=== PATIENT | female | born 1955 | race Caucasian/White ===

== ENCOUNTER → 2017-08-29 05:00 | Outpatient (REF) | payer MEDICARE, SELFPAY ==
[2017-08-29 09:48] LABS: Hemoglobin A1c 8.3 % (4.2-6.3)
== END ==
LOC: OLS.WHLCAR 05:00
PROVIDERS: Visit Provider Internal Medicine
DX: E11.9 Type 2 diabetes mellitus without complications (principal); I10 Essential (primary) hypertension; E78.5 Hyperlipidemia, unspecified; E03.9 Hypothyroidism, unspecified
CPT/HCPCS: 36415; 83036

== ENCOUNTER 2017-10-04 00:34 | Inpatient (IN) | payer MEDICARE, SELFPAY ==
[2017-10-04] VITALS (55 sets, daily range): BP systolic 96–188; BP diastolic 40–77; PULSE 65–93; RESP 6–17; TEMP 34.7–39; O2SAT 91–100; BMI 44.2; BMI 43.1
[2017-10-04] MEDS: Dextrose 50%-Water 25 GM/50 ML DISP.SYRIN IV (00:38)
[2017-10-04 00:45] LABS: Bedside Glucose 53 mg/dL (70-110)
--- NOTE | 2017-10-04 00:45 | CT_ITS ---
STUDY: CT BRAIN WITHOUT CONTRAST REASON FOR EXAM: Female, 62 years old. Unresponsive. Hypotension. RADIATION DOSAGE (If Supplied By Facility): CTDIvol = ( 44.99 ) mGy, DLP = ( 796.11 ) mGycm TECHNIQUE: Transaxial CT imaging of the brain was performed without administration of intravenous contrast material. Individualized dose optimization techniques were used for this CT. COMPARISON: 09/03/2017. FINDINGS: Normal soft tissue structures. Normal calvarium. There is mild cerebral atrophy with widening of the extra-axial spaces and ventricular dilatation. Communicating hydrocephalus is less likely. There are areas of decreased attenuation within the white matter tracts of the supratentorial brain, consistent with microvascular disease changes. Normal basal ganglia and thalami. Normal brainstem. There is mild cerebellar atrophy. There is no intracranial hemorrhage. There are no findings of an acute ischemic infarction. Normal visualized paranasal sinuses. CT/Brain/Head without Contrast IMPRESSION: Chronic involutional changes of the brain. No acute intracranial process. Electronically Signed: Erick Chacon MD at 1:58 EST Tel , Service support ,
--- NOTE | 2017-10-04 00:45 | RAD_ITS ---
STUDY: X-RAY CHEST REASON FOR EXAM: Female, 62 years old. Status post intubation. Patient unresponsive. TECHNIQUE: Single AP portable view of the chest. COMPARISON: 09/03/2017. FINDINGS: There is an endotracheal tube with its tip approximately 4 cm proximal to the rosa. There is a nasogastric tube with distal dilatation of the stomach. There is patchy infiltrate in the left lower lobe but improved since the previous exam. There may be small left pleural effusion. There is mild cardiac enlargement. There is widening of the mediastinum probably exaggerated by patient's positioning. Normal visualized pulmonary arteries. There is atherosclerotic calcification of the aortic arch with tortuosity. The bony structures are unchanged. There is no demonstrated abnormality of the visualized soft tissue structures of the upper abdomen. RAD/Chest 1 View (Portable) IMPRESSION: Status post intubation and nasogastric tube placement. Mild infiltrate in the left lower lung. Electronically Signed: Erick Chacon MD at 1:46 EST Tel , Service support ,
--- NOTE | 2017-10-04 00:48 | EKG12_ITS ---
Test Reason : UNRESPONSIVE Blood Pressure : / mmHG Vent. Rate : 078 BPM Atrial Rate : 078 BPM P-R Int : 150 ms QRS Dur : 072 ms QT Int : 388 ms P-R-T Axes : 055 001 063 degrees QTc Int : 442 ms Normal sinus rhythm Septal infarct , age undetermined Abnormal ECG Confirmed by MEAGAN SANCHEZ, SALLIE ([id number]), newspaper managing editor SILVESTRE PAYNE ([id number]) on 10/06/2017 1:55:29 PM Referred By: ROGERS Confirmed By:SALLIE RHODES MD
--- NOTE | 2017-10-04 00:48 | ED.RN ---
BROTHER WHO IS GUARDIAN [employer]ARON CALLED, MADE AWARE OF PT NOT RESPONDING AT THIS TIME. DR. MCCLOUD GIVEN PHONE FOR DISCUSSION
[2017-10-04 00:59] LABS: Absolute Lymphocyte Count 0.86 X10^3/ul (0.83-4.51); Absolute Neutrophil Count 11.9 X10^3/uL (2.0-7.7); Basophil# 0.03 X10^3/uL; Basophil% 0.2 % (0-1); Eosinophil# 0.01 X10^3/uL; Eosinophils% 0.1 % (0-5); Hemoglobin 9.3 g/dl (12.0-15.0); Lymphocyte # 0.86 X10^3/ul (4.0); Lymphocyte % 6.4 % (19-41); Mean Corp Hgb Conc 28.2 g/gl (32-36); Mean Corpuscular Hgb 25.5 pg (27.0-32.0); Mean Corpuscular Volume 90.4 fL (81-99); Mean Platelet Vol. 10.3 fl (6.2-12.0); Monocyte# 0.33 X10^3/uL; Monocyte% 2.5 % (0-10); Neutrophil # 11.94 X10^3/uL (2.7-7.7); Neutrophil % 89.2 % (47-70); POSITIVE COUNT NO; POSITIVE DIFFERENTIAL NO; POSITIVE MORPHOLOGY NO; Platelet Count 263 K/mm3 (150-450); RBC Distribution Width CV 18.9 % (11.6-14.6); RBC Distribution Width SD 60.6 fl (35.1-43.9); Red Blood Count 3.65 M/mm3 (4.2-5.4); White Blood Count 13.4 K/mm3 (4.4-11.0)
[2017-10-04] MEDS: Dext 5%-0.45% NS 1,000 ML 100 ML IV (00:59)
[2017-10-04 01:01] LABS: International Normalized Ratio 1.4
[2017-10-04] MEDS: Etomidate 20 MG/10 ML Vial IV (01:11)
--- NOTE | 2017-10-04 01:14 | ED.VISSUMM ---
- ER Visit Summary Date of Service: 10/04/17 Chief Complaint: [Unresponsive] History of Present Illness: The patient is a 62 F [who presents the emergency department unresponsive. She is at the group home and was found to be unresponsive and hypoglycemic at 1130. She was last seen responsive at 11 PM. She was given glucagon. Her blood sugar was 73 per EMS. She had no improvement of her mental status. Per history sheet from calling the group home she has been lethargic and nauseated all day. She was complaining of nausea at 6 PM. I spoke with her brother who is her power of attorney lawyer and states that she was intubated 2 weeks ago for pneumonia. She is DNR CCA he would like for her to be intubated to see if she has improvement.] Physical Examination: [] Blood pressure 122/40 heart rate 79 respiration 600% on nonrebreather temperature 96.0 Unresponsive Pupils 3 mm and minimally reactive equal Moist mucous membranes no facial asymmetry Regular rate and rhythm no murmurs Diminished breath sounds diffusely shallow respirations Abdomen soft and does not appear to be tender no bruising No peripheral edema Delayed cap refill in the feet and hands 1+ radial pulses symmetrically Patient is unresponsive GCS is 4 Test Results: [] Emergency Department Course and Treatment: [EKG was obtained and was sinus at 78 with Q waves in the anterior leads is unchanged from previous on September 02, 2017. Patient was given an amp of D50 and blood sugar did improve to 177. Patient's mental status did not improve. At that time the decision was made to intubate for airway protection. Patient was intubated with 20 mg of etomidate for sedation. 4.0 Ced blade was used 7.0 ET tube was placed without difficulty on the first attempt. Placement was confirmed with bilateral breath sounds color change condensation in the tube and x-ray was ordered. Labs show a leukocytosis at 13.4 a lactic acid of 4.4 and a left lower lobe infiltrate on chest x-ray. Patient was treated for septic shock with fluids cefepime and vancomycin. She did start to wake up after being ventilated. She was sedated with fentanyl. Patient had hyperkalemia without EKG change. She was given Kayexalate through the OG. CT of the head showed no acute process. I spoke with Dr. Coelho as well as Dr. García 3 the patient will be admitted to the ICU.] Treatment Plan: [] Disposition: [Admit] Impression: [1. Hypercapnic respiratory failure 2. Septic shock 3. Hypoglycemia 4. Hyperkalemia] This note was generated with [employer] dictation software. It may contain incorrect words, spelling, and punctuation that were not noted in review of the chart prior to signing ED Disposition - Plan for ED Patient: Chief Complaint: Unresponsive Referrals: Xi Headley MD [Primary Care Provider] -
[2017-10-04 01:17] LABS: ALB/GLOB Ratio 0.7 RATIO (0.9-2.4); AST(SGOT) 12 U/L (15-37); Alanine Aminotransfer ALT/SGPT 28 U/L (13-56); Albumin, Serum 3.3 g/dL (3.2-5.0); Alkaline Phosphatase 85 U/L (45-117); Anion Gap 4 (5-15); BUN 52 mg/dL (7-18); BUN/Creat Ratio 36.4 RATIO (10-20); Calcium,Total 9.2 mg/dL (8.5-10.1); Chloride 95 mmol/L (98-107); Creatinine, Serum 1.43 mg/dL (0.55-1.02); EST Glomerular Filtration Rate 39 mL/min (>60); Est Glom Filt Rate - Afr Amer 48 mL/min (>60); Estimated Creatinine Clearance 33.31 ml/min; Globulin 4.7 g/dL (2.2-4.2); Glucose 45 mg/dL (74-106); Potassium 5.9 mmol/L (3.5-5.1); Sodium Level 135 mmol/L (136-145)
--- NOTE | 2017-10-04 01:19 | ED.DCSUM_ITS ---
- ER Visit Summary Date of Service: 10/04/17 Chief Complaint: [Unresponsive] History of Present Illness: The patient is a 62 F [who presents the emergency department unresponsive. She is at the [facility] and was found to be unresponsive and hypoglycemic at 1130. She was last seen responsive at 11 PM. She was given glucagon. Her blood sugar was 73 per EMS. She had no improvement of her mental status. Per history sheet from calling the [facility] she has been lethargic and nauseated all day. She was complaining of nausea at 6 PM. I spoke with her brother who is her power of senior trial attorney and states that she was intubated 2 weeks ago for pneumonia. She is DNR CCA he would like for her to be intubated to see if she has improvement.] Physical Examination: [] Blood pressure 122/40 heart rate 79 respiration 600% on nonrebreather temperature 96.0 Unresponsive Pupils 3 mm and minimally reactive equal Moist mucous membranes no facial asymmetry Regular rate and rhythm no murmurs Diminished breath sounds diffusely shallow respirations Abdomen soft and does not appear to be tender no bruising No peripheral edema Delayed cap refill in the feet and hands 1+ radial pulses symmetrically Patient is unresponsive GCS is 4 Test Results: [] Emergency Department Course and Treatment: [EKG was obtained and was sinus at 78 with Q waves in the anterior leads is unchanged from previous on September 02, 2017. Patient was given an amp of D50 and blood sugar did improve to 177. Patient's mental status did not improve. At that time the decision was made to intubate for airway protection. Patient was intubated with 20 mg of etomidate for sedation. 4.0 Ced blade was used 7.0 ET tube was placed without difficulty on the first attempt. Placement was confirmed with bilateral breath sounds color change condensation in the tube and x-ray was ordered. Labs show a leukocytosis at 13.4 a lactic acid of 4.4 and a left lower lobe infiltrate on chest x-ray. Patient was treated for septic shock with fluids cefepime and vancomycin. She did start to wake up after being ventilated. She was sedated with fentanyl. Patient had hyperkalemia without EKG change. She was given Kayexalate through the OG. CT of the head showed no acute process. I spoke with Dr. Coelho as well as Dr. García 3 the patient will be admitted to the ICU.] Treatment Plan: [] Disposition: [Admit] Impression: [1. Hypercapnic respiratory failure 2. Septic shock 3. Hypoglycemia 4. Hyperkalemia] This note was generated with [employer] dictation software. It may contain incorrect words, spelling, and punctuation that were not noted in review of the chart prior to signing ED Disposition - Plan for ED Patient: Chief Complaint: Unresponsive Referrals: Xi Headley MD [Primary Care Provider] -
[2017-10-04 01:20] LABS: Lactic Acid 4.4 mmol/L (0.4-2.0)
--- NOTE | 2017-10-04 01:20 | ED.RN ---
LAB CALLS WITH CRITICAL RESULT, LACTIC ACID 4.4, DR. MCCLOUD MADE AWARE.
[2017-10-04 01:22] LABS: Bedside Glucose 177 mg/dL (70-110)
[2017-10-04] MEDS: LORazepam 2 MG/ML Syringe 1 MG IV ×2 (01:38→02:24)
--- NOTE | 2017-10-04 01:42 | RAD_ITS ---
STUDY: X-RAY - ABDOMEN/PELVIS REASON FOR EXAM: Female, 62 years old. Status post advancement of orogastric tube. TECHNIQUE: Single AP view of the abdomen / pelvis. COMPARISON: Chest x-ray of 10/04/2017. FINDINGS: The orogastric tube's tip is now in the region of the stomach. The right side of the abdomen and the pelvic region are not included on this examination. RAD/Abdomen Single View (Portable) IMPRESSION: Orogastric tube with the tip in the region of the stomach. Electronically Signed: Erick Chacon MD at 2:07 EST Tel , Service support ,
[2017-10-04] MEDS: MethylPREDNISolone 125 MG/2 ML Vial IV (01:46)
[2017-10-04] MEDS: Ipratropium/Albuterol Sulfate 3 ML AMPUL.NEB INHALATION ×6 (01:49→23:14)
[2017-10-04] MEDS: Albuterol 2.5 MG/3 ML VIAL.NEB. INHALATION (01:49)
[2017-10-04] MEDS: Sodium Polystyrene Sulfonate 15 GM/60 ML UDC NG (01:55)
[2017-10-04] MEDS: 0.9% Normal Saline 1,000 ML 999 ML IV ×3 (01:56→03:33)
[2017-10-04 02:31] LABS: Bedside Glucose 116 mg/dL (70-110)
--- NOTE | 2017-10-04 03:04 | PCM.HP.STD ---
Problem List (1) Metabolic encephalopathy Status: Acute (2) Hypothermia Status: Acute (3) Severe sepsis Status: Acute (4) Gram-negative pneumonia Status: Acute (5) Mental retardation Status: Chronic (6) Morbid obesity Status: Chronic (7) Hypertension Status: Chronic (8) Type 2 diabetes mellitus without complications Status: Chronic (9) Leg edema, right Status: Acute (10) Depressive disorder Status: Chronic (11) Acute respiratory failure with hypercapnia Status: Acute (12) Hypoglycemia Status: Acute History of Present Illness Date of Admission: 10/04/17 Chief Complaint: found down The patient is a 62 year old F found unresponsive at [place]. Brought to ED and was hypothermic at 34.7C. Remained unresponsive and was intubated. Slightly woke up, but was sedated afterwards w fentanyl. Had a CXR concerning for LLL infiltrate and rec'd cefepime and vanc. Additionally, lactate was 4.4, and she received IVF. Pt had a similiar presentation where she was intubated and had a sputum cx positive for proteus and MSSA. Pt was hypoglycemic w MBS of 45. Rec'd D5 w/o improvement of her mentation and was subsequently intubated.[] Past Medical History Past Medical History (Chronic Problems): Chronic Problems Mental retardation (Chronic) Paresthesia (Chronic) Hx of shortness of breath (Chronic) Morbid obesity (Chronic) Hypertension (Chronic) Type 2 diabetes mellitus without complications (Chronic) Insomnia (Chronic) Depressive disorder (Chronic) Allergies naproxen Allergy (Verified 10/04/17 00:46) Rash Penicillins Allergy (Verified 10/04/17 00:46) Rash Home Medications: Ambulatory Orders Medication Instructions Recorded Acetaminophen 2 tab PO DINNER 10/04/17 Albuterol Aerosols [Ventolin 2.5 mg INHALATION Q4H PRN PRN 10/04/17 Aerosols] Apixaban [Eliquis] 5 mg PO BID 10/04/17 Atorvastatin Calcium 40 mg PO QHS 10/04/17 Carvedilol 12.5 mg PO BID 10/04/17 Clonidine HCl 0.1 mg PO BID 10/04/17 Fluticasone Propionate [Flovent 50 mcg IH DAILY 10/04/17 Diskus] Guaifenesin 10 ml PO Q6H PRN 10/04/17 Hydrochlorothiazide [Hctz] 25 mg PO DAILY 10/04/17 Insulin Aspart Protam & Aspart 26 unit SQ BREAKFAST 10/04/17 [Novolog Mix 70-30 Vial] Insulin Aspart Protam & Aspart 36 unit SQ DINNER 10/04/17 [Novolog Mix 70-30 Vial] Insulin Aspart [Novolog Flexpen See Protocol SC DINNER 10/04/17 ([facility])] Levothyroxine [Synthroid] 137 mcg PO DAILY 10/04/17 Loperamide [Imodium] 2 mg PO PRN PRN 10/04/17 Magnesium Oxide 400 mg PO BID 10/04/17 Melatonin 3 mg PO QHS 10/04/17 Metformin HCl [Glucophage] 1,000 mg PO BIDCM 10/04/17 Omeprazole 20 mg PO DAILY 10/04/17 Polyethylene Glycol 3350 [Miralax] 17 gm PO DAILY 10/04/17 Polyvinyl Alcohol [Artificial 1 drop OP TID PRN 10/04/17 Tears] Risperidone 2 mg PO BID 10/04/17 Sodium Chloride [Saline Mist] 2 spray NASAL TID 10/04/17 Spironolactone 25 mg PO DAILY 10/04/17 Tramadol HCl [Ultram] 50 mg PO DAILY 10/04/17 Venlafaxine HCl [Effexor] 75 mg PO BID 10/04/17 Surgical History: total knee arthroplasty - Left Psychiatric History: Depression, Schizophrenia - Paranoid. HELIARC WELDER History: No pertinent HELIARC WELDER history Smoking Status: Unknown if ever smoked - *Family History Maternal History Items: Unknown - unable to get family history as pt intubated and sedated Review of Systems Unable to obtain accurate/complete ROS d/t: unable to obtain as pt intubated and sedated VTE Information - Inpt Only VTE Present on Admission: Yes Patient Problems: Active and Suspected Problems Metabolic encephalopathy (Acute) Hypothermia (Acute) Severe sepsis (Acute) Gram-negative pneumonia (Acute) Acute respiratory failure with hypercapnia (Acute) Hypoglycemia (Acute) - Physical Exam General: - - intubated and sedated HEENT: Atraumatic, Normocephalic, - - ETT and OG in place Oral: Moist Mucosa, No Gingival or Mucosal Lesions/ Ulcerations Neck: No Nodes, Thyroid Normal Size and Texture Lungs: Clear to auscultation, Diminished Cardiovascular: Regular rate, Regular Rhythm, Normal S1, Normal S2 Abdomen: Bowel Sounds Present, Soft, Non Tender, Non-Distended, Obese Extremities: No clubbing, No Calf Tenderness Skin: No rashes, No breakdown Musculoskeletal: No Tenderness to Palpation of Joints or Extremities, No Muscle Wasting Neurological: Muscle tone normal, - - no clonus. Psych/Mental Status: - - sedated Vital Signs Temp Pulse Resp BP Pulse Ox 34.9 C L 65 16 96/57 L 100 10/04/17 02:52 10/04/17 02:52 10/04/17 02:52 10/04/17 02:52 10/04/17 02:52 Oxygen Flow Rate 15 Oxygen Delivery Method Mechanical Ventilator Weight: 113.3 kg Body Mass Index (BMI) 44.2 Finger Stick Blood Glucose 177 Microbiology Past 72 Hours 10/04/17 01:00 Influenza Types A,B Direct FA (CARLITA) - Final Mucosa - Nose Laboratory Tests Past 24 Hrs 10/04/17 10/04/17 10/04/17 00:40 00:40 00:40 WBC 13.4 H RBC 3.65 L Hgb 9.3 L Hct 33.0 L MCV 90.4 MCH 25.5 L MCHC 28.2 L RDW 18.9 H RDW Differential 60.6 H Plt Count 263 MPV 10.3 Immature Gran % (Auto) 1.600 H Neut % (Auto) 89.2 H Lymph % (Auto) 6.4 L [place] % (Auto) 2.5 Eos % (Auto) 0.1 Baso % (Auto) 0.2 Absolute Neuts (auto) 11.9 H Absolute Lymphs (auto) 0.86 Total Counted Not Reportable PT 17.0 H INR 1.4 Sodium 135 L Potassium 5.9 H Chloride 95 L Carbon Dioxide 36.0 H Anion Gap 4 L BUN 52 H Creatinine 1.43 H Estim Creat Clear Calc 33.31 Est GFR (MDRD) Af Amer 48 L Est GFR (MDRD) Non-Af 39 L BUN/Creatinine Ratio 36.4 H Glucose 45 L Lactic Acid Calcium 9.2 Total Bilirubin 0.20 AST 12 L ALT 28 Alkaline Phosphatase 85 Troponin I 0.17 H Total Protein 8.0 Albumin 3.3 Globulin 4.7 H Albumin/Globulin Ratio 0.7 L 10/04/17 00:40 WBC RBC Hgb Hct MCV MCH MCHC RDW RDW Differential Plt Count MPV Immature Gran % (Auto) Neut % (Auto) Lymph % (Auto) [place] % (Auto) Eos % (Auto) Baso % (Auto) Absolute Neuts (auto) Absolute Lymphs (auto) Total Counted PT INR Sodium Potassium Chloride Carbon Dioxide Anion Gap BUN Creatinine Estim Creat Clear Calc Est GFR (MDRD) Af Amer Est GFR (MDRD) Non-Af BUN/Creatinine Ratio Glucose Lactic Acid 4.4 H* Calcium Total Bilirubin AST ALT Alkaline Phosphatase Troponin I Total Protein Albumin Globulin Albumin/Globulin Ratio POC Glucose 10/04/17 10/04/17 10/04/17 02:19 00:58 00:38 POC Glucose 116 H 177 H 53 L Clinical Impression(s) from Imaging Studies Brain CT 10/04/17 00:45 IMPRESSION: Chronic involutional changes of the brain. No acute intracranial process. Electronically Signed: Erick Chacon MD at 1:58 EST Tel , Service support , Chest X-Ray 10/04/17 00:45 IMPRESSION: Status post intubation and nasogastric tube placement. Mild infiltrate in the left lower lung. Electronically Signed: Erick Chacon MD at 1:46 EST Tel , Service support , ADDENDUM: 10/04/17 0216 KUB X-Ray 10/04/17 01:42 IMPRESSION: Orogastric tube with the tip in the region of the stomach. Electronically Signed: Erick Chacon MD at 2:07 EST Tel , Service support , Assessment/Plan Active and Suspected Problems Metabolic encephalopathy (Acute) Hypothermia (Acute) Severe sepsis (Acute) Gram-negative pneumonia (Acute) Acute respiratory failure with hypercapnia (Acute) Hypoglycemia (Acute) 1. severe sepsis presumably d/t pneumonia. continue w IVF follow up lactate 2. Suspected Gram negative pneumonia jw- +cipro + vanc follow up cultures pulm toilet 3. metabolic encephalopathy no abg done, but CO2 high on BMP presumably CO2 narcosis was an etiology and hypoglycemia also contributing could be the severe sepsis on top her MRDD 4 Lactic acidosis severe sepsis v resp failure monitor 5. DM2 SSI for now hold scheduled insulin for now given the hypoglycemia 6. VTE cont elquis 7. Code status from detention: [id number] 8. Hypoglycemia: hold scheduled insulin and metformin. 9. Acute hypercapnic resp failure intubated on vent CCM c/s Code Visit Inpatient E&M: 29527 Init Hosp L3
--- NOTE | 2017-10-04 03:18 | HP.PCM_ITS ---
Problem List (1) Metabolic encephalopathy Status: Acute (2) Hypothermia Status: Acute (3) Severe sepsis Status: Acute (4) Gram-negative pneumonia Status: Acute (5) Mental retardation Status: Chronic (6) Morbid obesity Status: Chronic (7) Hypertension Status: Chronic (8) Type 2 diabetes mellitus without complications Status: Chronic (9) Leg edema, right Status: Acute (10) Depressive disorder Status: Chronic (11) Acute respiratory failure with hypercapnia Status: Acute (12) Hypoglycemia Status: Acute History of Present Illness Date of Admission: 10/04/17 Chief Complaint: found down The patient is a 62 year old F found unresponsive at [place]. Brought to ED and was hypothermic at 34.7C. Remained unresponsive and was intubated. Slightly woke up , but was sedated afterwards w fentanyl. Had a CXR concerning for LLL infiltrate and rec'd cefepime and vanc. Additionally, lactate was 4.4, and she received IVF. Pt had a similiar presentation where she was intubated and had a sputum cx positive for proteus and MSSA. Pt was hypoglycemic w MBS of 45. Rec'd D5 w/o improvement of her mentation and was subsequently intubated.[] Past Medical History Past Medical History (Chronic Problems): Chronic Problems Mental retardation (Chronic) Paresthesia (Chronic) Hx of shortness of breath (Chronic) Morbid obesity (Chronic) Hypertension (Chronic) Type 2 diabetes mellitus without complications (Chronic) Insomnia (Chronic) Depressive disorder (Chronic) Allergies naproxen Allergy (Verified 10/04/17 00:46) Rash Penicillins Allergy (Verified 10/04/17 00:46) Rash Home Medications: Ambulatory Orders Medication Instructions Recorded Acetaminophen 2 tab PO DINNER 10/04/17 Albuterol Aerosols [Ventolin 2.5 mg INHALATION Q4H PRN PRN 10/04/17 Aerosols] Apixaban [Eliquis] 5 mg PO BID 10/04/17 Atorvastatin Calcium 40 mg PO QHS 10/04/17 Carvedilol 12.5 mg PO BID 10/04/17 Clonidine HCl 0.1 mg PO BID 10/04/17 Fluticasone Propionate [Flovent 50 mcg IH DAILY 10/04/17 Diskus] Guaifenesin 10 ml PO Q6H PRN 10/04/17 Hydrochlorothiazide [Hctz] 25 mg PO DAILY 10/04/17 Insulin Aspart Protam & Aspart 26 unit SQ BREAKFAST 10/04/17 [Novolog Mix 70-30 Vial] Insulin Aspart Protam & Aspart 36 unit SQ DINNER 10/04/17 [Novolog Mix 70-30 Vial] Insulin Aspart [Novolog Flexpen See Protocol SC DINNER 10/04/17 ([facility])] Levothyroxine [Synthroid] 137 mcg PO DAILY 10/04/17 Loperamide [Imodium] 2 mg PO PRN PRN 10/04/17 Magnesium Oxide 400 mg PO BID 10/04/17 Melatonin 3 mg PO QHS 10/04/17 Metformin HCl [Glucophage] 1,000 mg PO BIDCM 10/04/17 Omeprazole 20 mg PO DAILY 10/04/17 Polyethylene Glycol 3350 [Miralax] 17 gm PO DAILY 10/04/17 Polyvinyl Alcohol [Artificial 1 drop OP TID PRN 10/04/17 Tears] Risperidone 2 mg PO BID 10/04/17 Sodium Chloride [Saline Mist] 2 spray NASAL TID 10/04/17 Spironolactone 25 mg PO DAILY 10/04/17 Tramadol HCl [Ultram] 50 mg PO DAILY 10/04/17 Venlafaxine HCl [Effexor] 75 mg PO BID 10/04/17 Surgical History: total knee arthroplasty - Left Psychiatric History: Depression, Schizophrenia - Paranoid. 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 Smoking Status: Unknown if ever smoked - *Family History Maternal History Items: Unknown - unable to get family history as pt intubated and sedated Review of Systems Unable to obtain accurate/complete ROS d/t: unable to obtain as pt intubated and sedated VTE Information - Inpt Only VTE Present on Admission: Yes Patient Problems: Active and Suspected Problems Metabolic encephalopathy (Acute) Hypothermia (Acute) Severe sepsis (Acute) Gram-negative pneumonia (Acute) Acute respiratory failure with hypercapnia (Acute) Hypoglycemia (Acute) - Physical Exam General: - - intubated and sedated HEENT: Atraumatic, Normocephalic, - - ETT and OG in place Oral: Moist Mucosa, No Gingival or Mucosal Lesions/ Ulcerations Neck: No Nodes, Thyroid Normal Size and Texture Lungs: Clear to auscultation, Diminished Cardiovascular: Regular rate, Regular Rhythm, Normal S1, Normal S2 Abdomen: Bowel Sounds Present, Soft, Non Tender, Non-Distended, Obese Extremities: No clubbing, No Calf Tenderness Skin: No rashes, No breakdown Musculoskeletal: No Tenderness to Palpation of Joints or Extremities, No Muscle Wasting Neurological: Muscle tone normal, - - no clonus. Psych/Mental Status: - - sedated Vital Signs Temp Pulse Resp BP Pulse Ox 34.9 C L 65 16 96/57 L 100 10/04/17 02:52 10/04/17 02:52 10/04/17 02:52 10/04/17 02:52 10/04/17 02:52 Oxygen Flow Rate 15 Oxygen Delivery Method Mechanical Ventilator Weight: 113.3 kg Body Mass Index (BMI) 44.2 Finger Stick Blood Glucose 177 Microbiology Past 72 Hours 10/04/17 01:00 Influenza Types A,B Direct FA (CARLITA) - Final Mucosa - Nose Laboratory Tests Past 24 Hrs 10/04/17 10/04/17 10/04/17 00:40 00:40 00:40 WBC 13.4 H RBC 3.65 L Hgb 9.3 L Hct 33.0 L MCV 90.4 MCH 25.5 L MCHC 28.2 L RDW 18.9 H RDW Differential 60.6 H Plt Count 263 MPV 10.3 Immature Gran % (Auto) 1.600 H Neut % (Auto) 89.2 H Lymph % (Auto) 6.4 L [place] % (Auto) 2.5 Eos % (Auto) 0.1 Baso % (Auto) 0.2 Absolute Neuts (auto) 11.9 H Absolute Lymphs (auto) 0.86 Total Counted Not Reportable PT 17.0 H INR 1.4 Sodium 135 L Potassium 5.9 H Chloride 95 L Carbon Dioxide 36.0 H Anion Gap 4 L BUN 52 H Creatinine 1.43 H Estim Creat Clear Calc 33.31 Est GFR (MDRD) Af Amer 48 L Est GFR (MDRD) Non-Af 39 L BUN/Creatinine Ratio 36.4 H Glucose 45 L Lactic Acid Calcium 9.2 Total Bilirubin 0.20 AST 12 L ALT 28 Alkaline Phosphatase 85 Troponin I 0.17 H Total Protein 8.0 Albumin 3.3 Globulin 4.7 H Albumin/Globulin Ratio 0.7 L 10/04/17 00:40 WBC RBC Hgb Hct MCV MCH MCHC RDW RDW Differential Plt Count MPV Immature Gran % (Auto) Neut % (Auto) Lymph % (Auto) [place] % (Auto) Eos % (Auto) Baso % (Auto) Absolute Neuts (auto) Absolute Lymphs (auto) Total Counted PT INR Sodium Potassium Chloride Carbon Dioxide Anion Gap BUN Creatinine Estim Creat Clear Calc Est GFR (MDRD) Af Amer Est GFR (MDRD) Non-Af BUN/Creatinine Ratio Glucose Lactic Acid 4.4 H* Calcium Total Bilirubin AST ALT Alkaline Phosphatase Troponin I Total Protein Albumin Globulin Albumin/Globulin Ratio POC Glucose 10/04/17 10/04/17 10/04/17 02:19 00:58 00:38 POC Glucose 116 H 177 H 53 L Clinical Impression(s) from Imaging Studies Brain CT 10/04/17 00:45 IMPRESSION: Chronic involutional changes of the brain. No acute intracranial process. Electronically Signed: Erick Chacon MD at 1:58 EST Tel , Service support , Chest X-Ray 10/04/17 00:45 IMPRESSION: Status post intubation and nasogastric tube placement. Mild infiltrate in the left lower lung. Electronically Signed: Erick Chacon MD at 1:46 EST Tel , Service support , ADDENDUM: 10/04/17 0216 KUB X-Ray 10/04/17 01:42 IMPRESSION: Orogastric tube with the tip in the region of the stomach. Electronically Signed: Erick Chacon MD at 2:07 EST Tel , Service support , Assessment/Plan Active and Suspected Problems Metabolic encephalopathy (Acute) Hypothermia (Acute) Severe sepsis (Acute) Gram-negative pneumonia (Acute) Acute respiratory failure with hypercapnia (Acute) Hypoglycemia (Acute) 1. severe sepsis * presumably d/t pneumonia. * continue w IVF * follow up lactate 2. Suspected Gram negative pneumonia * jw- +cipro + vanc * follow up cultures * pulm toilet 3. metabolic encephalopathy * no abg done, but CO2 high on BMP * presumably CO2 narcosis was an etiology and hypoglycemia * also contributing could be the severe sepsis on top her MRDD 4 Lactic acidosis * severe sepsis v resp failure * monitor 5. DM2 * SSI for now * hold scheduled insulin for now given the hypoglycemia 6. VTE * cont elquis 7. Code status * from care home: DNRCCA 8. Hypoglycemia: * hold scheduled insulin and metformin. 9. Acute hypercapnic resp failure * intubated on vent * [facility] c/s Code Visit Inpatient E&M: 11280 Init Hosp L3
[2017-10-04 03:51] LABS: Bedside Glucose 123 mg/dL (70-110)
[2017-10-04] MEDS: 0.9% Normal Saline 1,000 ML 125 ML IV (04:36)
[2017-10-04 04:52] LABS: Reflex Lactate? Y
[2017-10-04 04:56] LABS: Bedside Glucose 108 mg/dL (70-110)
[2017-10-04 05:11] LABS: Base Excess 3 mmol/L (-2 to +2); Bicarbonate 29.1 mmol/L (22-26); Blood Gas Specimen Type ART; FI02 40; Mode A-C; O2 Delivery Device Vent; PEEP 5; PO2 80 mmHG (75-100); RR 14; SITE R Radial; SO2 94 % (95-99); Time Given 510; Total Carbon Dioxide 31 mmol/L; Vt 445; pCO2 57.5 mmHg (35-45); pH 7.31 (7.35-7.45)
[2017-10-04 05:43] LABS: Hemoglobin 8.3 g/dl (12.0-15.0); Mean Corp Hgb Conc 33.2 g/gl (32-36); Mean Corpuscular Hgb 30.3 pg (27.0-32.0); Mean Corpuscular Volume 91.2 fL (81-99); Mean Platelet Vol. 10.4 fl (6.2-12.0); Platelet Count 215 K/mm3 (150-450); Red Blood Count 2.74 M/mm3 (4.2-5.4); White Blood Count 9.2 K/mm3 (4.4-11.0)
[2017-10-04 05:44] LABS: Scan Indicated on CBC? Y/N NO
[2017-10-04 06:00] LABS: Lactic Acid 3.8 mmol/L (0.4-2.0)
[2017-10-04] MEDS: Ciprofloxacin 400 MG/200 ML BAG 200 MG IV (06:01)
[2017-10-04] MEDS: Levothyroxine 137 MCG Tablet PO (06:16)
[2017-10-04] MEDS: DiphenhydrAMINE 50 MG/ML Syringe IV (06:22)
[2017-10-04 06:50] LABS: Allen Test POS; Blood Gas Specimen Type ART; O2 Delivery Device Room Air; SITE R RADIAL
[2017-10-04 06:51] LABS: Time Given 113; pH 7.02 (7.35-7.45)
[2017-10-04 06:52] LABS: PO2 218 mmHG (75-100); pCO2 > 130.0 mmHg (35-45)
[2017-10-04 06:59] LABS: Anion Gap 12 (5-15); BUN 54 mg/dL (7-18); BUN/Creat Ratio 41.9 RATIO (10-20); Calcium,Total 8.6 mg/dL (8.5-10.1); Chloride 98 mmol/L (98-107); Creatinine, Serum 1.29 mg/dL (0.55-1.02); EST Glomerular Filtration Rate 44 mL/min (>60); Est Glom Filt Rate - Afr Amer 54 mL/min (>60); Glucose 105 mg/dL (74-106); Potassium 5.9 mmol/L (3.5-5.1); Sodium Level 135 mmol/L (136-145)
[2017-10-04 07:14] LABS: M R Staph aureus DNA By PCR Negative (Negative)
[2017-10-04 07:15] LABS: Probe Check PASS; Specimen Processing Control PASS
[2017-10-04] MEDS: CHLORHEXIDINE GLUC 2% CLOTH 1 EACH TOWELETTE TOPICAL (07:18)
--- NOTE | 2017-10-04 07:52 | PCM.CON.CC ---
Problem List (1) Metabolic encephalopathy Status: Acute (2) Hypothermia Status: Acute Qualifiers: Encounter type: initial encounter Qualified Code(s): T68.XXXA - Hypothermia, initial encounter (3) Severe sepsis Status: Acute (4) Gram-negative pneumonia Status: Acute (5) Mental retardation Status: Chronic (6) Acute respiratory failure with hypercapnia Status: Acute (7) Hypoglycemia Status: Acute (8) Paresthesia Status: Chronic (9) Hx of shortness of breath Status: Chronic (10) Morbid obesity Status: Chronic (11) Hypertension Status: Chronic (12) Type 2 diabetes mellitus without complications Status: Chronic (13) Right hip pain Status: Acute (14) Insomnia Status: Chronic (15) Inability to ambulate due to hip Status: Acute (16) Leg edema, right Status: Acute (17) Depressive disorder Status: Chronic Reason for Consult Date of Consultation: 10/04/17 Reason for Consultation: Respiratory failure History of Present Illness: The patient is a 62 year old F, with past medical history listed below and well-known to me from recent hospitalization, who presented to [facility] on 10/04/2017 after being found unresponsive and hypoglycemic at the [place] [facility] at approximately 11:30 PM. Was reportedly seen response of approximately 30 minutes before. Patient had been given glucagon by EMS and blood sugar improved to 73. Mental status continued to be depressed. Patient had reportedly been lethargic and nauseated all day. On arrival to the emergency room, patient was noted to be unresponsive with a GCS of 4. Patient was successfully extubated with a 7.0 endotracheal tube and initiated on cefepime with vancomycin. Patient was also noted to have hyperkalemia and did receive a dose of Kayexalate. No EKG changes were noted at that time. Patient was transferred to the intensive care unit for further monitoring. While in the intensive care unit, patient did have significant hypothermia. Patient has had a warming blanket placed with some improvement. Blood sugars have been appropriate to this point. Patient is not actively interacting despite lack of sedation. Patient does have fentanyl infusing. There was some concern over facial and tongue swelling, so patient was given Benadryl. No rashes have been noted. Patient does have a brother that is her power of attorney recruiter. He is not available to talk with at this time. Patient is not able to provide any review of systems are additional information at this time. Past Medical History Past Medical History (Chronic Problems): Chronic Problems Mental retardation (Chronic) Paresthesia (Chronic) Hx of shortness of breath (Chronic) Morbid obesity (Chronic) Hypertension (Chronic) Type 2 diabetes mellitus without complications (Chronic) Insomnia (Chronic) Depressive disorder (Chronic) Allergies naproxen Allergy (Verified 10/04/17 00:46) Rash Penicillins Allergy (Verified 10/04/17 00:46) Rash Home Medications: Ambulatory Orders Medication Instructions Recorded Acetaminophen 2 tab PO DINNER 10/04/17 Albuterol Aerosols [Ventolin 2.5 mg INHALATION Q4H PRN PRN 10/04/17 Aerosols] Apixaban [Eliquis] 5 mg PO BID 10/04/17 Atorvastatin Calcium 40 mg PO QHS 10/04/17 Carvedilol 12.5 mg PO BID 10/04/17 Clonidine HCl 0.1 mg PO BID 10/04/17 Fluticasone Propionate [Flovent 50 mcg IH DAILY 10/04/17 Diskus] Guaifenesin 10 ml PO Q6H PRN 10/04/17 Hydrochlorothiazide [Hctz] 25 mg PO DAILY 10/04/17 Insulin Aspart Protam & Aspart 26 unit SQ BREAKFAST 10/04/17 [Novolog Mix 70-30 Vial] Insulin Aspart Protam & Aspart 36 unit SQ DINNER 10/04/17 [Novolog Mix 70-30 Vial] Insulin Aspart [Novolog Flexpen See Protocol SC DINNER 10/04/17 ([facility])] Levothyroxine [Synthroid] 137 mcg PO DAILY 10/04/17 Loperamide [Imodium] 2 mg PO PRN PRN 10/04/17 Magnesium Oxide 400 mg PO BID 10/04/17 Melatonin 3 mg PO QHS 10/04/17 Metformin HCl [Glucophage] 1,000 mg PO BIDCM 10/04/17 Omeprazole 20 mg PO DAILY 10/04/17 Polyethylene Glycol 3350 [Miralax] 17 gm PO DAILY 10/04/17 Polyvinyl Alcohol [Artificial 1 drop OP TID PRN 10/04/17 Tears] Risperidone 2 mg PO BID 10/04/17 Sodium Chloride [Saline Mist] 2 spray NASAL TID 10/04/17 Spironolactone 25 mg PO DAILY 10/04/17 Tramadol HCl [Ultram] 50 mg PO DAILY 10/04/17 Venlafaxine HCl [Effexor] 75 mg PO BID 10/04/17 Surgical History: total knee arthroplasty - Left Psychiatric History: Depression, Schizophrenia - Paranoid. 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 Chest x-ray does show a left lower lobe infiltrate. Supportive devices are in appropriate position. - Physical Exam General: - - Intubated. RASS -3. Morbidly obese. Good vent synchrony noted. Endotracheal tube was noted to be folded earlier. Adjustments led to decrease in peak airway pressures. HEENT: Atraumatic, EOMI, Normocephalic, - - Lip smacking noted. Macroglossia appreciated. Oral: Moist Mucosa, No Gingival or Mucosal Lesions/ Ulcerations Neck: Supple, No Nodes, Trachea Midline, - - Be difficult to appreciate secondary to body habitus Lungs: No rhonchi, No rales, Diminished, Wheezes, - - Metric expansion. No dullness to percussion. Cardiovascular: Regular rate, Regular Rhythm, Normal S1, Normal S2, No murmurs, No rub noted, No Gallop Abdomen: Bowel Sounds Present, Soft, Non Tender, Non-Distended, Obese Extremities: No clubbing, No cyanosis, Edema - 2+ lower extremities Skin: No rashes, No breakdown Musculoskeletal: No Tenderness to Palpation of Joints or Extremities, No Muscle Wasting Lymphatic: No Cervical, Supraclavicular, or Inguinal Adenopathy Neurological: - - Positive gag and cough reflexes. Responds to stimulus. Psych/Mental Status: Flat Affect Vital Signs Temp Pulse Resp BP Pulse Ox 37.7 C H 76 16 149/67 H 97 10/04/17 07:00 10/04/17 07:06 10/04/17 07:00 10/04/17 07:00 10/04/17 07:00 Oxygen Delivery Method Mechanical Ventilator Weight: 110.5 kg Body Mass Index (BMI) 43.1 Intake and Output for Last 24 Hours 10/02/17 10/03/17 10/04/17 23:59 23:59 23:59 Intake Total 3519.7 / 3519.7 Output Total 250 / 250 Balance 3269.7 / 3269.7 Microbiology Past 72 Hours 10/04/17 04:45 Streptococcus pneumoniae Antigen (M - Final Urine Catheter - Catheter 10/04/17 04:45 Legionella Antigen - Final Urine Catheter - Catheter Laboratory Tests Past 24 Hrs 10/04/17 10/04/17 10/04/17 04:30 05:06 05:14 WBC 9.2 RBC 2.74 L Hgb 8.3 L Hct 25.0 L MCV 91.2 MCH 30.3 MCHC 33.2 RDW 19.0 H RDW Differential 59.0 H Plt Count 215 MPV 10.4 Specimen Type ART Sample Site R Radial pH 7.31 L Bicarbonate Actual 29.1 H POC Total CO2 31 Base Excess 3 H O2 Saturation 94 L O2 % 40 ABG pCO2 57.5 H ABG pO2 80 Jerry Test NA Respiration Rate 14 O2 Delivery Device Vent Minute Volume 6.00 Vent Mode A-C Tidal Volume 445 POC PEEP 5 Blood Gas Notified Whom [facility] Blood Gas Notified Time 510 Sodium Potassium Chloride Carbon Dioxide Anion Gap BUN Creatinine Estim Creat Clear Calc Est GFR (MDRD) Af Amer Est GFR (MDRD) Non-Af BUN/Creatinine Ratio Glucose Lactic Acid Calcium MRSA (PCR) Negative 10/04/17 10/04/17 05:14 05:14 WBC RBC Hgb Hct MCV MCH MCHC RDW RDW Differential Plt Count MPV Specimen Type Sample Site pH Bicarbonate Actual POC Total CO2 Base Excess O2 Saturation O2 % ABG pCO2 ABG pO2 Jerry Test Respiration Rate O2 Delivery Device Minute Volume Vent Mode Tidal Volume POC PEEP Blood Gas Notified Whom Blood Gas Notified Time Sodium 135 L Potassium 5.9 H Chloride 98 Carbon Dioxide 25.0 Anion Gap 12 BUN 54 H Creatinine 1.29 H Estim Creat Clear Calc 35.30 Est GFR (MDRD) Af Amer 54 L Est GFR (MDRD) Non-Af 44 L BUN/Creatinine Ratio 41.9 H Glucose 105 Lactic Acid 3.8 H Calcium 8.6 MRSA (PCR) POC Glucose 10/04/17 10/04/17 04:36 03:44 POC Glucose 108 123 H Clinical Impression(s) from Imaging Studies Brain CT 10/04/17 00:45 IMPRESSION: Chronic involutional changes of the brain. No acute intracranial process. Electronically Signed: Erick Chacon MD at 1:58 EST Tel , Service support , Chest X-Ray 10/04/17 00:45 IMPRESSION: Status post intubation and nasogastric tube placement. Mild infiltrate in the left lower lung. Electronically Signed: Erick Chacon MD at 1:46 EST Tel , Service support , ADDENDUM: 10/04/17 0216 KUB X-Ray 10/04/17 01:42 IMPRESSION: Orogastric tube with the tip in the region of the stomach. Electronically Signed: Erick Chacon MD at 2:07 EST Tel , Service support , Assessment/Plan Active and Suspected Problems Metabolic encephalopathy (Acute) Hypothermia (Acute) Severe sepsis (Acute) Gram-negative pneumonia (Acute) Acute respiratory failure with hypercapnia (Acute) Hypoglycemia (Acute) RECOMMENDATIONS: 1. Continue HCAP antibiotics pending culture and viral panel 2. Monitor blood sugars closely 3. Initiate tube feeds 4. Place PICC line 5. Re-dose Kayexalate this afternoon if no bowel movement 6. Continues breathing and awakening trials per protocol IMPRESSIONS: 1. Acute on chronic hypercarbic respiratory failure Patient recently with polymicrobial pneumonia and parainfluenza virus. Unclear if patient has influenza given reported nausea, vomiting and body aches. Patient currently has multiple cultures pending and a viral panel. Patient did grow staph aureus in the past, so would continue with vancomycin despite negative MRSA swab. Patient does have a left midlung infiltrate. Unclear if this is residual from previous pneumonia versus new infection. Patient does have significant lactic acidosis on presentation, but this may also be secondary to hypoglycemia. 2. Delirium with baseline dementia/metabolic encephalopathy Likely secondary to hypercarbia with additional metabolic/infectious derangements contributing. We will continue to support at this time. Continue with delirium protocol. Patient will need an ABG prior to extubation. Follow electrolytes on a daily basis 3. Acute kidney injury/hyperkalemia Likely prerenal in etiology. Patient can be initiated on tube feeds for volume repletion. Continue current medical management. Urine output is currently appropriate. No current indications for renal replacement therapy. 4. Elevated cardiac enzymes/demand ischemia Likely secondary to demand ischemia in the setting of respiratory failure and sepsis. Echocardiogram has shown diastolic dysfunction in the recent past, so will have to watch fluid status closely. Patient does have a history of hypertension. 5. Hypoglycemia Patient for iatrogenic etiology given baseline 70/30 dosing with new onset of nausea and vomiting. Patient has responded to current intervention. Will initiate tube feeds. Clinical suspicion that basal insulin will need to be initiated once sugars greater than 200. Continue to monitor closely. 6. Normocytic anemia No overt signs of blood loss. Monitor blood counts daily. Plan to transfuse if hemoglobin falls below 7 g/dL. 7. History of normal pressure hydrocephalus/severe depression/diabetes/hypertension/morbid obesity/history of DVT/hypothyroidism Complicates care, management, recovery and prognosis. Continue home medications as indicated. 8. Hypertensive urgency Unclear etiology. Patient did have elevated blood pressures during last hospitalization. Will allow to run slightly high in the initial 24 hours as septic shock may develop given patient's presenting hypothermia and new lung infiltrate TIME: 45 minutes critical care time spent addressing patient's acute on chronic respiratory failure, encephalopathy. hyperkalemia, hypoglycemia, review of all data and collaboration with care team (7 AM to 8:10 AM) Code Visit 9xxxx: [id number] Critical care first hour
--- NOTE | 2017-10-04 08:10 | CON.PCM_ITS ---
Problem List (1) Metabolic encephalopathy Status: Acute (2) Hypothermia Status: Acute Qualifiers: Encounter type: initial encounter Qualified Code(s): T68.XXXA - Hypothermia , initial encounter (3) Severe sepsis Status: Acute (4) Gram-negative pneumonia Status: Acute (5) Mental retardation Status: Chronic (6) Acute respiratory failure with hypercapnia Status: Acute (7) Hypoglycemia Status: Acute (8) Paresthesia Status: Chronic (9) Hx of shortness of breath Status: Chronic (10) Morbid obesity Status: Chronic (11) Hypertension Status: Chronic (12) Type 2 diabetes mellitus without complications Status: Chronic (13) Right hip pain Status: Acute (14) Insomnia Status: Chronic (15) Inability to ambulate due to hip Status: Acute (16) Leg edema, right Status: Acute (17) Depressive disorder Status: Chronic Reason for Consult Date of Consultation: 10/04/17 Reason for Consultation: Respiratory failure History of Present Illness: The patient is a 62 year old F, with past medical history listed below and well- known to me from recent hospitalization, who presented to [facility] on 10/04/2017 after being found unresponsive and hypoglycemic at the [facility] at approximately 11:30 PM. Was reportedly seen response of approximately 30 minutes before. Patient had been given glucagon by EMS and blood sugar improved to 73. Mental status continued to be depressed. Patient had reportedly been lethargic and nauseated all day. On arrival to the emergency room, patient was noted to be unresponsive with a GCS of 4. Patient was successfully extubated with a 7.0 endotracheal tube and initiated on cefepime with vancomycin. Patient was also noted to have hyperkalemia and did receive a dose of Kayexalate. No EKG changes were noted at that time. Patient was transferred to the intensive care unit for further monitoring. While in the intensive care unit, patient did have significant hypothermia. Patient has had a warming blanket placed with some improvement. Blood sugars have been appropriate to this point. Patient is not actively interacting despite lack of sedation. Patient does have fentanyl infusing. There was some concern over facial and tongue swelling, so patient was given Benadryl. No rashes have been noted. Patient does have a brother that is her power of finance attorney. He is not available to talk with at this time. Patient is not able to provide any review of systems are additional information at this time. Past Medical History Past Medical History (Chronic Problems): Chronic Problems Mental retardation (Chronic) Paresthesia (Chronic) Hx of shortness of breath (Chronic) Morbid obesity (Chronic) Hypertension (Chronic) Type 2 diabetes mellitus without complications (Chronic) Insomnia (Chronic) Depressive disorder (Chronic) Allergies naproxen Allergy (Verified 10/04/17 00:46) Rash Penicillins Allergy (Verified 10/04/17 00:46) Rash Home Medications: Ambulatory Orders Medication Instructions Recorded Acetaminophen 2 tab PO DINNER 10/04/17 Albuterol Aerosols [Ventolin 2.5 mg INHALATION Q4H PRN PRN 10/04/17 Aerosols] Apixaban [Eliquis] 5 mg PO BID 10/04/17 Atorvastatin Calcium 40 mg PO QHS 10/04/17 Carvedilol 12.5 mg PO BID 10/04/17 Clonidine HCl 0.1 mg PO BID 10/04/17 Fluticasone Propionate [Flovent 50 mcg IH DAILY 10/04/17 Diskus] Guaifenesin 10 ml PO Q6H PRN 10/04/17 Hydrochlorothiazide [Hctz] 25 mg PO DAILY 10/04/17 Insulin Aspart Protam & Aspart 26 unit SQ BREAKFAST 10/04/17 [Novolog Mix 70-30 Vial] Insulin Aspart Protam & Aspart 36 unit SQ DINNER 10/04/17 [Novolog Mix 70-30 Vial] Insulin Aspart [Novolog Flexpen See Protocol SC DINNER 10/04/17 ([facility])] Levothyroxine [Synthroid] 137 mcg PO DAILY 10/04/17 Loperamide [Imodium] 2 mg PO PRN PRN 10/04/17 Magnesium Oxide 400 mg PO BID 10/04/17 Melatonin 3 mg PO QHS 10/04/17 Metformin HCl [Glucophage] 1,000 mg PO BIDCM 10/04/17 Omeprazole 20 mg PO DAILY 10/04/17 Polyethylene Glycol 3350 [Miralax] 17 gm PO DAILY 10/04/17 Polyvinyl Alcohol [Artificial 1 drop OP TID PRN 10/04/17 Tears] Risperidone 2 mg PO BID 10/04/17 Sodium Chloride [Saline Mist] 2 spray NASAL TID 10/04/17 Spironolactone 25 mg PO DAILY 10/04/17 Tramadol HCl [Ultram] 50 mg PO DAILY 10/04/17 Venlafaxine HCl [Effexor] 75 mg PO BID 10/04/17 Surgical History: total knee arthroplasty - Left Psychiatric History: Depression, Schizophrenia - Paranoid. BIG DATA DEVELOPER History: No pertinent BIG DATA DEVELOPER history Smoking Status: Unknown if ever smoked - *Family History Maternal History Items: Unknown - unable to get family history as pt intubated and sedated Review of Systems Unable to obtain accurate/complete ROS d/t: See HPI Patient Problems: Active and Suspected Problems Metabolic encephalopathy (Acute) Hypothermia (Acute) Severe sepsis (Acute) Gram-negative pneumonia (Acute) Acute respiratory failure with hypercapnia (Acute) Hypoglycemia (Acute) Objective: All imaging was personally reviewed. Chest x-ray does show a left lower lobe infiltrate. Supportive devices are in appropriate position. - Physical Exam General: - - Intubated. RASS -3. Morbidly obese. Good vent synchrony noted. Endotracheal tube was noted to be folded earlier. Adjustments led to decrease in peak airway pressures. HEENT: Atraumatic, EOMI, Normocephalic, - - Lip smacking noted. Macroglossia appreciated. Oral: Moist Mucosa, No Gingival or Mucosal Lesions/ Ulcerations Neck: Supple, No Nodes, Trachea Midline, - - Be difficult to appreciate secondary to body habitus Lungs: No rhonchi, No rales, Diminished, Wheezes, - - Metric expansion. No dullness to percussion. Cardiovascular: Regular rate, Regular Rhythm, Normal S1, Normal S2, No murmurs, No rub noted, No Gallop Abdomen: Bowel Sounds Present, Soft, Non Tender, Non-Distended, Obese Extremities: No clubbing, No cyanosis, Edema - 2+ lower extremities Skin: No rashes, No breakdown Musculoskeletal: No Tenderness to Palpation of Joints or Extremities, No Muscle Wasting Lymphatic: No Cervical, Supraclavicular, or Inguinal Adenopathy Neurological: - - Positive gag and cough reflexes. Responds to stimulus. Psych/Mental Status: Flat Affect Vital Signs Temp Pulse Resp BP Pulse Ox 37.7 C H 76 16 149/67 H 97 10/04/17 07:00 10/04/17 07:06 10/04/17 07:00 10/04/17 07:00 10/04/17 07:00 Oxygen Delivery Method Mechanical Ventilator Weight: 110.5 kg Body Mass Index (BMI) 43.1 Intake and Output for Last 24 Hours 10/02/17 10/03/17 10/04/17 23:59 23:59 23:59 Intake Total 3519.7 / 3519.7 Output Total 250 / 250 Balance 3269.7 / 3269.7 Microbiology Past 72 Hours 10/04/17 04:45 Streptococcus pneumoniae Antigen (M - Final Urine Catheter - Catheter 10/04/17 04:45 Legionella Antigen - Final Urine Catheter - Catheter Laboratory Tests Past 24 Hrs 10/04/17 10/04/17 10/04/17 04:30 05:06 05:14 WBC 9.2 RBC 2.74 L Hgb 8.3 L Hct 25.0 L MCV 91.2 MCH 30.3 MCHC 33.2 RDW 19.0 H RDW Differential 59.0 H Plt Count 215 MPV 10.4 Specimen Type ART Sample Site R Radial pH 7.31 L Bicarbonate Actual 29.1 H POC Total CO2 31 Base Excess 3 H O2 Saturation 94 L O2 % 40 ABG pCO2 57.5 H ABG pO2 80 Jerry Test NA Respiration Rate 14 O2 Delivery Device Vent Minute Volume 6.00 Vent Mode A-C Tidal Volume 445 POC PEEP 5 Blood Gas Notified Whom [facility] Blood Gas Notified Time 510 Sodium Potassium Chloride Carbon Dioxide Anion Gap BUN Creatinine Estim Creat Clear Calc Est GFR (MDRD) Af Amer Est GFR (MDRD) Non-Af BUN/Creatinine Ratio Glucose Lactic Acid Calcium MRSA (PCR) Negative 10/04/17 10/04/17 05:14 05:14 WBC RBC Hgb Hct MCV MCH MCHC RDW RDW Differential Plt Count MPV Specimen Type Sample Site pH Bicarbonate Actual POC Total CO2 Base Excess O2 Saturation O2 % ABG pCO2 ABG pO2 Jerry Test Respiration Rate O2 Delivery Device Minute Volume Vent Mode Tidal Volume POC PEEP Blood Gas Notified Whom Blood Gas Notified Time Sodium 135 L Potassium 5.9 H Chloride 98 Carbon Dioxide 25.0 Anion Gap 12 BUN 54 H Creatinine 1.29 H Estim Creat Clear Calc 35.30 Est GFR (MDRD) Af Amer 54 L Est GFR (MDRD) Non-Af 44 L BUN/Creatinine Ratio 41.9 H Glucose 105 Lactic Acid 3.8 H Calcium 8.6 MRSA (PCR) POC Glucose 10/04/17 10/04/17 04:36 03:44 POC Glucose 108 123 H Clinical Impression(s) from Imaging Studies Brain CT 10/04/17 00:45 IMPRESSION: Chronic involutional changes of the brain. No acute intracranial process. Electronically Signed: Erick Chacon MD at 1:58 EST Tel , Service support , Chest X-Ray 10/04/17 00:45 IMPRESSION: Status post intubation and nasogastric tube placement. Mild infiltrate in the left lower lung. Electronically Signed: Erick Chacon MD at 1:46 EST Tel , Service support , ADDENDUM: 10/04/17 0216 KUB X-Ray 10/04/17 01:42 IMPRESSION: Orogastric tube with the tip in the region of the stomach. Electronically Signed: Erick Chacon MD at 2:07 EST Tel , Service support , Assessment/Plan Active and Suspected Problems Metabolic encephalopathy (Acute) Hypothermia (Acute) Severe sepsis (Acute) Gram-negative pneumonia (Acute) Acute respiratory failure with hypercapnia (Acute) Hypoglycemia (Acute) RECOMMENDATIONS: 1. Continue HCAP antibiotics pending culture and viral panel 2. Monitor blood sugars closely 3. Initiate tube feeds 4. Place PICC line 5. Re-dose Kayexalate this afternoon if no bowel movement 6. Continues breathing and awakening trials per protocol IMPRESSIONS: 1. Acute on chronic hypercarbic respiratory failure Patient recently with polymicrobial pneumonia and parainfluenza virus. Unclear if patient has influenza given reported nausea, vomiting and body aches. Patient currently has multiple cultures pending and a viral panel. Patient did grow staph aureus in the past, so would continue with vancomycin despite negative MRSA swab. Patient does have a left midlung infiltrate. Unclear if this is residual from previous pneumonia versus new infection. Patient does have significant lactic acidosis on presentation, but this may also be secondary to hypoglycemia. 2. Delirium with baseline dementia/metabolic encephalopathy Likely secondary to hypercarbia with additional metabolic/infectious derangements contributing. We will continue to support at this time. Continue with delirium protocol. Patient will need an ABG prior to extubation. Follow electrolytes on a daily basis 3. Acute kidney injury/hyperkalemia Likely prerenal in etiology. Patient can be initiated on tube feeds for volume repletion. Continue current medical management. Urine output is currently appropriate. No current indications for renal replacement therapy. 4. Elevated cardiac enzymes/demand ischemia Likely secondary to demand ischemia in the setting of respiratory failure and sepsis. Echocardiogram has shown diastolic dysfunction in the recent past, so will have to watch fluid status closely. Patient does have a history of hypertension. 5. Hypoglycemia Patient for iatrogenic etiology given baseline 70/30 dosing with new onset of nausea and vomiting. Patient has responded to current intervention. Will initiate tube feeds. Clinical suspicion that basal insulin will need to be initiated once sugars greater than 200. Continue to monitor closely. 6. Normocytic anemia No overt signs of blood loss. Monitor blood counts daily. Plan to transfuse if hemoglobin falls below 7 g/dL. 7. History of normal pressure hydrocephalus/severe depression/diabetes/ hypertension/morbid obesity/history of DVT/hypothyroidism Complicates care, management, recovery and prognosis. Continue home medications as indicated. 8. Hypertensive urgency Unclear etiology. Patient did have elevated blood pressures during last hospitalization. Will allow to run slightly high in the initial 24 hours as septic shock may develop given patient's presenting hypothermia and new lung infiltrate TIME: 45 minutes critical care time spent addressing patient's acute on chronic respiratory failure, encephalopathy. hyperkalemia, hypoglycemia, review of all data and collaboration with care team (7 AM to 8:10 AM) Code Visit 9xxxx: [id number] Critical care first hour
--- NOTE | 2017-10-04 09:29 | NURSING ---
IVT, Juan, at bedside for PICC insertion
--- NOTE | 2017-10-04 10:29 | CASEMGMT ---
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 Therefore, they will try to get a precert prior to pt returning, however pt can return whenever she is ready. CJ Zuniga, POWER GRADER OPERATOR Original Note: SW participated in interdisciplinary rounds this morning. Pt is here from [facility], her brother Rosas Fenton is POA, pt was here in August. SW called Sapna, message left and SW faxed clinical updates to Sapna at [facility], will continue to follow. Pt is currently on a ventilator at this time. CJ Zuniga, POWER GRADER OPERATOR
[2017-10-04] MEDS: cloNIDine HCl 0.1 MG Tablet GT ×2 (11:21→22:15)
[2017-10-04] MEDS: APIXABAN 5 MG TABLET GT ×2 (11:21→22:15)
[2017-10-04] MEDS: Chlorhexidine 15 ML PO ×2 (11:21→22:15)
[2017-10-04] MEDS: Famotidine 20 MG Tablet GT ×2 (11:21→22:16)
[2017-10-04] MEDS: Carvedilol 12.5 MG Tablet GT (11:21)
[2017-10-04] MEDS: Cefepime 1 GM in 0.9% NS 50 ML Minibag Q12 IV ×2 (11:22→22:15)
[2017-10-04 12:56] LABS: Bedside Glucose 178 mg/dL (70-110)
--- NOTE | 2017-10-04 13:32 | PN_ITS ---
Patient Problems: Active and Suspected Problems Metabolic encephalopathy (Acute) Hypothermia (Acute) Severe sepsis (Acute) Gram-negative pneumonia (Acute) Acute respiratory failure with hypercapnia (Acute) Hypoglycemia (Acute) Subjective: CC: Acute respiratory failure, sepsis She remains intubated on mechanical ventilator. She is Hemodynamically stable. Vitals/I&O's: Vital Signs Temp Pulse Resp BP Pulse Ox 101.2 F H 84 14 171/50 H 100 10/04/17 13:00 10/04/17 13:15 10/04/17 13:15 10/04/17 13:00 10/04/17 13:15 Oxygen Flow Rate 2 Oxygen Delivery Method Mechanical Ventilator Weight: 110.5 kg Body Mass Index (BMI) 43.1 Intake and Output for Last 24 Hours 10/02/17 10/03/17 10/04/17 23:59 23:59 23:59 Intake Total 3977.7 / 3977.7 Output Total 950 / 950 Balance 3027.7 / 3027.7 General: Alert, Oriented x3 Oral: Moist Mucosa Neck: Supple, No JVD Lungs: Clear to auscultation Cardiovascular: Regular rate, Normal S1, Normal S2 Abdomen: Bowel Sounds Present, Soft, Non Tender Extremities: No edema Neurological: Cranial nerves II-XII grossly intact, Motor Exam 5/5 strength throughout Microbiology Past 72 Hours 10/04/17 05:15 Mucosa - Nasopharyngeal Respiratory Panel (PCR) - Final 10/04/17 04:45 Urine Catheter - Catheter Streptococcus pneumoniae Antigen ( M - Final 10/04/17 04:45 Urine Catheter - Catheter Legionella Antigen - Final Laboratory Results 10/04/17 03:44: POC Glucose 123 H 10/04/17 04:30: MRSA (PCR) Negative 10/04/17 04:36: POC Glucose 108 10/04/17 05:06: Specimen Type ART, Sample Site R Radial, pH 7.31 L, Bicarbonate Actual 29.1 H, POC Total CO2 31, Base Excess 3 H, O2 Saturation 94 L, O2 % 40, ABG pCO2 57.5 H, ABG pO2 80, Jerry Test NA, Respiration Rate 14, O2 Delivery Device Vent, Minute Volume 6.00, Vent Mode A-C, Tidal Volume 445, POC PEEP 5, Blood Gas Notified Whom AJAY SANCHEZ, Blood Gas Notified Time 510 10/04/17 05:14: WBC 9.2, RBC 2.74 L, Hgb 8.3 L, Hct 25.0 L, MCV 91.2, MCH 30.3, MCHC 33.2, RDW 19.0 H, RDW Differential 59.0 H, Plt Count 215, MPV 10.4 10/04/17 05:14: Sodium 135 L, Potassium 5.9 H, Chloride 98, Carbon Dioxide 25.0 , Anion Gap 12, BUN 54 H, Creatinine 1.29 H, Estim Creat Clear Calc 35.30, Est GFR (MDRD) Af Amer 54 L, Est GFR (MDRD) Non-Af 44 L, BUN/Creatinine Ratio 41.9 H , Glucose 105, Calcium 8.6 10/04/17 05:14: Lactic Acid 3.8 H 10/04/17 12:49: POC Glucose 178 H Current Medications Albuterol Sulfate (Ventolin Aerosols) 2.5 mg INHALATION Q2H PRN PRN PRN Reason: SHORTNESS OF BREATH Albuterol/Ipratropium (Duoneb) 3 ml INHALATION Q4H.RT [facility] Last Admin: 10/04/17 11:13 Dose: 3 ml Apixaban (Eliquis) 5 mg GT BID [facility] Last Admin: 10/04/17 11:21 Dose: 5 mg Artificial Tears (Tears Naturale, Artificial Tears) 1 drop OPHTHALMIC TID PRN PRN PRN Reason: Dry Eye Atorvastatin Calcium (Lipitor) 40 mg GT QHS [facility] Carvedilol (Coreg) 12.5 mg GT BID [facility] Last Admin: 10/04/17 11:21 Dose: 12.5 mg Chlorhexidine Gluconate () 15 ml PO BID [facility] Last Admin: 10/04/17 11:21 Dose: 15 ml Chlorhexidine Gluconate () 1 each TOPICAL DAILY [facility] Last Admin: 10/04/17 07:18 Dose: 1 each Clonidine (Catapres) 0.1 mg GT BID [facility] Last Admin: 10/04/17 11:21 Dose: 0.1 mg Dextrose (D50w Syringe) 0 gm IV X1 PRN; Protocol PRN Reason: Hypoglycemia Famotidine (Pepcid) 20 mg GT BID [facility] Last Admin: 10/04/17 11:21 Dose: 20 mg Glucagon () 1 mg IM .X1 PRN PRN Reason: Hypoglycemia Fentanyl () 100 mls @ 5 mls/hr IV .Q20H [facility] Last Admin: 10/04/17 10:25 Dose: 5 mls/hr Propofol (Diprivan) 1,000 mg in 100 mls @ 3.399 mls/hr CONT INF .Q12H BIBI; 5 MCG/KG/MIN PRN Reason: Protocol Last Admin: 10/04/17 08:11 Dose: Not Given Sodium Chloride () 250 mls @ 15 mls/hr IV .[id number] PRN PRN Reason: SALINE FLUSH Cefepime HCl 1 gm/ Sodium (Chloride) 50 mls @ 100 mls/hr IV Q12 [facility] Last Admin: 10/04/17 11:22 Dose: 100 mls/hr Enteral Nutritional Formula (Vital Af 1.2 Denis Liquid) 1,000 mls @ 65 mls/hr GT .[id number] [facility] Insulin Aspart (Novolog Flexpen (Bkc)) 0 units SC Q6 BIBI PRN Reason: Protocol Last Admin: 10/04/17 12:58 Dose: 3 units Levothyroxine Sodium (Synthroid) 137 mcg GT DAILY@0600 [facility] Magnesium Hydroxide (Milk Of Magnesia) 30 ml PO DAILY PRN PRN PRN Reason: Constipation Methylprednisolone (Solu-Medrol) 40 mg IV Q8 [facility] Last Admin: 10/04/17 06:16 Dose: 40 mg Ondansetron HCl (Zofran) 4 mg IV Q8H PRN PRN PRN Reason: Nausea Polyethylene Glycol (Miralax) 17 gm GT BID BIBI Senna/Docusate Sodium (Senokot-S, Miranda-Colace) 2 tablet GT BID BIBI Sodium Chloride () 5 - 30 ml IV UD PRN PRN Reason: SALINE FLUSH Assessment/Plan Active and Suspected Problems Metabolic encephalopathy (Acute) Hypothermia (Acute) Severe sepsis (Acute) Gram-negative pneumonia (Acute) Acute respiratory failure with hypercapnia (Acute) Hypoglycemia (Acute) 1. Sepsis from pneumonia; continue IV antibiotics and hemodynamic support 2. Acute Respiratory failure with hypercapnia/ hypoxia; the patient is intubated on mechanical ventilator, vent management [per PCCM. 3. Pneumonia, HCAP; Cefepime and vancomycin 4. Metabolic encephalopathy; will reassess mental status after she is off sedation. 5. DM 2; will continue a regular insulin sliding scale. 6. Hypoglycemia; metformin has been discontinued for now. 7. History of right leg DVT; she is on Eliquis. Code Visit Inpatient E&M: 55655 Subs Hosp L3
[2017-10-04] MEDS: Senna/Docusate Sodium 1 Tablet 2 TABLET GT ×2 (14:37→22:14)
[2017-10-04] MEDS: Vital AF 1.2 Cal Liquid 1,000 ML 65 ML GT (14:37)
[2017-10-04] MEDS: Polyethylene Glycol 3350 17 GM PACKET GT ×2 (14:37→22:14)
[2017-10-04] MEDS: Acetaminophen 650 MG/20 ML UDC GT ×2 (14:47→22:15)
[2017-10-04] MEDS: hydroCHLOROthiazide 25 MG Tablet GT (14:48)
[2017-10-04] MEDS: 0.9% NaCl Peripheral Flush Adult/Peds IV (22:13)
[2017-10-04] MEDS: Propofol 10MG/Ml 1,000 MG/100 ML Bottle 3.399 MG CONT INF (22:13)
[2017-10-04] MEDS: Carvedilol 25 MG Tablet GT (22:14)
[2017-10-04] MEDS: Atorvastatin Calcium 40 MG Tablet GT (22:17)
[2017-10-05] VITALS (37 sets, daily range): BP systolic 133–180; BP diastolic 53–101; PULSE 66–86; RESP 12–32; TEMP 36.5–38.3; O2SAT 93–99
[2017-10-05 01:01] LABS: Bedside Glucose 321 mg/dL (70-110)
[2017-10-05 01:01] LABS: Bedside Glucose 238 mg/dL (70-110)
[2017-10-05] MEDS: Ipratropium/Albuterol Sulfate 3 ML AMPUL.NEB INHALATION ×4 (03:04→18:41)
[2017-10-05 04:35] LABS: Absolute Neutrophil Count 5.1 X10^3/uL (2.0-7.7); Basophil# 0.01 X10^3/uL; Basophil% 0.2 % (0-1); Hematocrit 26.2 % (37-47); Hemoglobin 7.4 g/dl (12.0-15.0); Lymphocyte % 11.1 % (19-41); Mean Corp Hgb Conc 28.2 g/gl (32-36); Mean Corpuscular Hgb 23.7 pg (27.0-32.0); Mean Platelet Vol. 9.8 fl (6.2-12.0); Monocyte# 0.47 X10^3/uL; Monocyte% 7.4 % (0-10); Neutrophil # 5.12 X10^3/uL (2.7-7.7); Neutrophil % 80.8 % (47-70); Platelet Count 243 K/mm3 (150-450); RBC Distribution Width CV 19.2 % (11.6-14.6); RBC Distribution Width SD 56.6 fl (35.1-43.9); Red Blood Count 3.12 M/mm3 (4.2-5.4); White Blood Count 6.3 K/mm3 (4.4-11.0)
[2017-10-05 04:36] LABS: POSITIVE COUNT NO; POSITIVE DIFFERENTIAL NO; POSITIVE MORPHOLOGY NO
[2017-10-05 04:50] LABS: Anion Gap 7 (5-15); BUN 40 mg/dL (7-18); BUN/Creat Ratio 45.2 RATIO (10-20); Calcium,Total 8.3 mg/dL (8.5-10.1); Chloride 96 mmol/L (98-107); Creatinine, Serum 0.88 mg/dL (0.55-1.02); EST Glomerular Filtration Rate 69 mL/min (>60); Est Glom Filt Rate - Afr Amer 83 mL/min (>60); Estimated Creatinine Clearance 54.13 ml/min; Glucose 360 mg/dL (74-106); Magnesium 2.3 mg/dL (1.6-2.6); Phosphorus 2.2 mg/dL (2.5-4.9); Potassium 4.6 mmol/L (3.5-5.1); Sodium Level 135 mmol/L (136-145)
[2017-10-05 05:21] LABS: Bedside Glucose 338 mg/dL (70-110)
[2017-10-05] MEDS: Levothyroxine 137 MCG Tablet GT (05:32)
[2017-10-05 06:10] LABS: Base Excess 10 mmol/L (-2 to +2); Bicarbonate 33.3 mmol/L (22-26); Blood Gas Specimen Type ART; FI02 30; Mode CPAP PS; O2 Delivery Device Vent; PEEP 5; PO2 69 mmHG (75-100); PS 5; SITE L Radial; SO2 94 % (95-99); Time Given 602; Total Carbon Dioxide 35 mmol/L; pCO2 45.8 mmHg (35-45); pH 7.47 (7.35-7.45)
[2017-10-05] MEDS: CHLORHEXIDINE GLUC 2% CLOTH 1 EACH TOWELETTE TOPICAL (06:25)
--- NOTE | 2017-10-05 06:52 | PN_ITS ---
Subjective: Patient did well overnight. No acute issues were reported. Patient was able to tolerate a spontaneous breathing trial this morning. Patient was slightly tachypneic, but overall tolerated it well. ABG was acceptable and patient was liberated from the ventilator under my direct supervision. No pain is reported. Patient denies dyspnea. General: Alert, Cooperative, No apparent distress, - - Appears older than stated age. HEENT: Atraumatic, PERRLA, EOMI, Normocephalic, - - No scleral icterus or injection noted. Oral: Moist Mucosa, No Gingival or Mucosal Lesions/ Ulcerations Neck: Supple, No JVD, No Nodes, Trachea Midline Lungs: No rhonchi, No wheeze, No rales, Diminished, - - Fair effort. Cardiovascular: Regular rate, Regular Rhythm, Normal S1, Normal S2, No murmurs, No rub noted, No Gallop Abdomen: Bowel Sounds Present, Soft, Non Tender, Non-Distended, Obese Extremities: No clubbing, No cyanosis, Capillary Refill Less than 3 Seconds, Edema Skin: No rashes, No breakdown Musculoskeletal: No Tenderness to Palpation of Joints or Extremities Lymphatic: No Cervical, Supraclavicular, or Inguinal Adenopathy Neurological: Cranial nerves II-XII grossly intact, Neuro grossly intact, Motor Exam 5/5 strength throughout Psych/Mental Status: Appropriate, Flat Affect Vital Signs Temp Pulse Resp BP Pulse Ox 37.6 C H 78 22 H 167/101 H 99 10/05/17 06:00 10/05/17 06:15 10/05/17 06:15 10/05/17 06:00 10/05/17 06:15 Oxygen Flow Rate 3 Oxygen Delivery Method Nasal Cannula Weight: 110.6 kg Body Mass Index (BMI) 43.1 Intake and Output for Last 24 Hours 10/03/17 10/04/17 10/05/17 23:59 23:59 23:59 Intake Total 4160.7 / 4160.7 936.6 / 936.6 Output Total 1450 / 1450 1250 / 1250 Balance 2710.7 / 2710.7 -313.4 / -313.4 Labs (Last 48 Hours) 10/04/17 10/04/17 10/04/17 03:44 04:30 04:36 WBC RBC Hgb Hct MCV MCH MCHC RDW RDW Differential Plt Count MPV Immature Gran % (Auto) Neut % (Auto) Lymph % (Auto) Lares % (Auto) Eos % (Auto) Baso % (Auto) Absolute Neuts (auto) Absolute Lymphs (auto) Total Counted Specimen Type Sample Site pH Bicarbonate Actual POC Total CO2 Base Excess O2 Saturation O2 % ABG pCO2 ABG pO2 Jerry Test Respiration Rate O2 Delivery Device Minute Volume Vent Mode Tidal Volume POC PEEP POC Pressure Suppt Blood Gas Notified Whom Blood Gas Notified Time Sodium Potassium Chloride Carbon Dioxide Anion Gap BUN Creatinine Estim Creat Clear Calc Est GFR (MDRD) Af Amer Est GFR (MDRD) Non-Af BUN/Creatinine Ratio Glucose Lactic Acid Calcium Phosphorus Magnesium MRSA (PCR) Negative POC Glucose 123 H 108 10/04/17 10/04/17 10/04/17 05:06 05:14 05:14 WBC 9.2 RBC 2.74 L Hgb 8.3 L Hct 25.0 L MCV 91.2 MCH 30.3 MCHC 33.2 RDW 19.0 H RDW Differential 59.0 H Plt Count 215 MPV 10.4 Immature Gran % (Auto) Neut % (Auto) Lymph % (Auto) Lares % (Auto) Eos % (Auto) Baso % (Auto) Absolute Neuts (auto) Absolute Lymphs (auto) Total Counted Specimen Type ART Sample Site R Radial pH 7.31 L Bicarbonate Actual 29.1 H POC Total CO2 31 Base Excess 3 H O2 Saturation 94 L O2 % 40 ABG pCO2 57.5 H ABG pO2 80 Jerry Test NA Respiration Rate 14 O2 Delivery Device Vent Minute Volume 6.00 Vent Mode A-C Tidal Volume 445 POC PEEP 5 POC Pressure Suppt Blood Gas Notified Whom [facility] Blood Gas Notified Time 510 Sodium 135 L Potassium 5.9 H Chloride 98 Carbon Dioxide 25.0 Anion Gap 12 BUN 54 H Creatinine 1.29 H Estim Creat Clear Calc 35.30 Est GFR (MDRD) Af Amer 54 L Est GFR (MDRD) Non-Af 44 L BUN/Creatinine Ratio 41.9 H Glucose 105 Lactic Acid Calcium 8.6 Phosphorus Magnesium MRSA (PCR) POC Glucose 10/04/17 10/04/17 10/04/17 05:14 12:49 17:37 WBC RBC Hgb Hct MCV MCH MCHC RDW RDW Differential Plt Count MPV Immature Gran % (Auto) Neut % (Auto) Lymph % (Auto) Lares % (Auto) Eos % (Auto) Baso % (Auto) Absolute Neuts (auto) Absolute Lymphs (auto) Total Counted Specimen Type Sample Site pH Bicarbonate Actual POC Total CO2 Base Excess O2 Saturation O2 % ABG pCO2 ABG pO2 Jerry Test Respiration Rate O2 Delivery Device Minute Volume Vent Mode Tidal Volume POC PEEP POC Pressure Suppt Blood Gas Notified Whom Blood Gas Notified Time Sodium Potassium Chloride Carbon Dioxide Anion Gap BUN Creatinine Estim Creat Clear Calc Est GFR (MDRD) Af Amer Est GFR (MDRD) Non-Af BUN/Creatinine Ratio Glucose Lactic Acid 3.8 H Calcium Phosphorus Magnesium MRSA (PCR) POC Glucose 178 H 238 H 10/05/17 10/05/17 10/05/17 00:48 04:18 04:18 WBC 6.3 RBC 3.12 L Hgb 7.4 L Hct 26.2 L MCV 84.0 MCH 23.7 L MCHC 28.2 L RDW 19.2 H RDW Differential 56.6 H Plt Count 243 MPV 9.8 Immature Gran % (Auto) 0.500 Neut % (Auto) 80.8 H Lymph % (Auto) 11.1 L Lares % (Auto) 7.4 Eos % (Auto) 0.0 Baso % (Auto) 0.2 Absolute Neuts (auto) 5.1 Absolute Lymphs (auto) 0.70 L Total Counted Not Reportable Specimen Type Sample Site pH Bicarbonate Actual POC Total CO2 Base Excess O2 Saturation O2 % ABG pCO2 ABG pO2 Jerry Test Respiration Rate O2 Delivery Device Minute Volume Vent Mode Tidal Volume POC PEEP POC Pressure Suppt Blood Gas Notified Whom Blood Gas Notified Time Sodium 135 L Potassium 4.6 Chloride 96 L Carbon Dioxide 32.0 Anion Gap 7 BUN 40 H Creatinine 0.88 Estim Creat Clear Calc 54.13 Est GFR (MDRD) Af Amer 83 Est GFR (MDRD) Non-Af 69 BUN/Creatinine Ratio 45.2 H Glucose 360 H Lactic Acid Calcium 8.3 L Phosphorus 2.2 L Magnesium 2.3 MRSA (PCR) POC Glucose 321 H 10/05/17 10/05/17 05:13 06:06 WBC RBC Hgb Hct MCV MCH MCHC RDW RDW Differential Plt Count MPV Immature Gran % (Auto) Neut % (Auto) Lymph % (Auto) Lares % (Auto) Eos % (Auto) Baso % (Auto) Absolute Neuts (auto) Absolute Lymphs (auto) Total Counted Specimen Type ART Sample Site L Radial pH 7.47 H Bicarbonate Actual 33.3 H POC Total CO2 35 Base Excess 10 H O2 Saturation 94 L O2 % 30 ABG pCO2 45.8 H ABG pO2 69 L Jerry Test NA Respiration Rate O2 Delivery Device Vent Minute Volume Vent Mode CPAP PS Tidal Volume POC PEEP 5 POC Pressure Suppt 5 Blood Gas Notified Whom ICU MD Blood Gas Notified Time 602 Sodium Potassium Chloride Carbon Dioxide Anion Gap BUN Creatinine Estim Creat Clear Calc Est GFR (MDRD) Af Amer Est GFR (MDRD) Non-Af BUN/Creatinine Ratio Glucose Lactic Acid Calcium Phosphorus Magnesium MRSA (PCR) POC Glucose 338 H Microbiology 10/04/17 05:15 Mucosa - Nasopharyngeal Respiratory Panel (PCR) - Final 10/04/17 04:45 Urine Catheter - Catheter Streptococcus pneumoniae Antigen ( M - Final 10/04/17 04:45 Urine Catheter - Catheter Legionella Antigen - Final Assessment/Plan Active and Suspected Problems Metabolic encephalopathy (Acute) Hypothermia (Acute) Severe sepsis (Acute) Gram-negative pneumonia (Acute) Acute respiratory failure with hypercapnia (Acute) Hypoglycemia (Acute) RECOMMENDATIONS: 1. Likely okay to discontinue vancomycin 2. Continue cefepime for now 3. Swallow evaluation 4. Increase Levemir therapy 5. Wean oxygen as tolerated IMPRESSIONS: 1. Acute on chronic hypercarbic respiratory failure Patient recently with polymicrobial pneumonia and parainfluenza virus. Unclear if patient has influenza given reported nausea, vomiting and body aches. Patient likely does not need continuation of vancomycin therapy. Would continue with cefepime therapy given patient's fever overnight. Patient able to tolerate spontaneous breathing trial and was extubated this morning. Wean oxygen as tolerated. Repeat ABG if necessary for decreased mentation. 2. Delirium with baseline dementia/metabolic encephalopathy Likely secondary to hypercarbia with additional metabolic/infectious derangements contributing. We will continue to support at this time. Continue with delirium protocol. Patient appears similar to baseline previous admission. Follow electrolytes on a daily basis 3. Acute kidney injury/hyperkalemia RESOLVED > Likely prerenal in etiology. Vision of p.o. diet if able. Continue current medical management. Urine output is currently appropriate. No current indications for renal replacement therapy. 4. Elevated cardiac enzymes/demand ischemia Likely secondary to demand ischemia in the setting of respiratory failure and sepsis. Echocardiogram has shown diastolic dysfunction in the recent past, so will have to watch fluid status closely. Patient does have a history of hypertension. 5. Hypoglycemia Patient for iatrogenic etiology given baseline 70/30 dosing with new onset of nausea and vomiting. Patient has responded to current intervention. Patient with very high requirements in the past. Will increase Levemir therapy. Continue to monitor closely. 6. Normocytic anemia No overt signs of blood loss. Monitor blood counts daily. Plan to transfuse if hemoglobin falls below 7 g/dL. 7. History of normal pressure hydrocephalus/severe depression/diabetes/ hypertension/morbid obesity/history of DVT/hypothyroidism Complicates care, management, recovery and prognosis. Continue home medications as indicated. 8. Hypertensive urgency Unclear etiology. Patient did have elevated blood pressures during last hospitalization. Patient has been reinitiated on baseline antihypertensive therapy TIME: 42 minutes critical care time spent addressing patient's acute on chronic respiratory failure, encephalopathy. hyperkalemia, hypoglycemia, review of all data and collaboration with care team (5:30 AM to 7 AM) Code Visit [id number]: [id number] Critical care first hour
[2017-10-05] MEDS: APIXABAN 5 MG TABLET GT (10:01)
[2017-10-05] MEDS: hydroCHLOROthiazide 25 MG Tablet GT (10:01)
[2017-10-05] MEDS: Senna/Docusate Sodium 1 Tablet 2 TABLET GT (10:01)
[2017-10-05] MEDS: Famotidine 20 MG Tablet GT (10:01)
[2017-10-05] MEDS: Polyethylene Glycol 3350 17 GM PACKET GT (10:01)
[2017-10-05] MEDS: Carvedilol 25 MG Tablet GT (10:01)
[2017-10-05] MEDS: 0.9% NaCl Peripheral Flush Adult/Peds IV ×2 (10:04→21:42)
[2017-10-05] MEDS: cloNIDine HCl 0.2 MG Tablet PO ×2 (11:15→21:23)
[2017-10-05] MEDS: 0.9% NaCl IVPB Med Flush (250 mL) 15 ML IV (11:17)
[2017-10-05 11:35] LABS: Bedside Glucose 426 mg/dL (70-110)
[2017-10-05] MEDS: Acetaminophen 325 MG Tablet 650 MG PO ×2 (11:37→21:29)
--- NOTE | 2017-10-05 15:39 | CASEMGMT ---
Call received from Presley Sim @ [facility] . Requested information on how pt was doing and also informed of dc plan to SNF.
--- NOTE | 2017-10-05 15:51 | CASEMGMT ---
Pt was extubated this morning. NICANOR called Sapna at [facility], message left and updates faxed. CJ Zuniga, SET UP MECH[employer]IC
[2017-10-05 16:21] LABS: Bedside Glucose 388 mg/dL (70-110)
--- NOTE | 2017-10-05 16:36 | PCM.PN.HOSP ---
Patient Problems: Active and Suspected Problems Metabolic encephalopathy (Acute) Hypothermia (Acute) Severe sepsis (Acute) Gram-negative pneumonia (Acute) Acute respiratory failure with hypercapnia (Acute) Hypoglycemia (Acute) Subjective: CC: Acute respiratory failure, sepsis She is now extubated, she is alert and oriented to time place and person. Vitals/I&O's: Vital Signs Temp Pulse Resp BP Pulse Ox 99.3 F H 70 29 H 137/72 H 98 10/05/17 16:00 10/05/17 16:00 10/05/17 16:00 10/05/17 16:00 10/05/17 16:00 Oxygen Flow Rate 2 Oxygen Delivery Method Nasal Cannula Weight: 110.6 kg Body Mass Index (BMI) 43.1 Intake and Output for Last 24 Hours 10/03/17 10/04/17 10/05/17 23:59 23:59 23:59 Intake Total 4160.7 / 4160.7 1409.6 / 1409.6 Output Total 1450 / 1450 2150 / 2150 Balance 2710.7 / 2710.7 -740.4 / -740.4 General: Alert, Oriented x3 Neck: Supple, No JVD Lungs: Clear to auscultation, No wheeze, No rales Cardiovascular: Regular rate, Normal S1, Normal S2 Abdomen: Bowel Sounds Present, Soft, Non Tender, Non-Distended Extremities: No edema Neurological: Cranial nerves II-XII grossly intact, Deep Tendon Reflexes 2+/4 and Symmetrical, Neuro grossly intact, Motor Exam 5/5 strength throughout Microbiology Past 72 Hours 10/04/17 20:45 Sputum, Induced/Lukens Gram Stain - Final 10/04/17 05:15 Mucosa - Nasopharyngeal Respiratory Panel (PCR) - Final 10/04/17 04:45 Urine Catheter - Catheter Streptococcus pneumoniae Antigen (M - Final 10/04/17 04:45 Urine Catheter - Catheter Legionella Antigen - Final Laboratory Results 10/04/17 17:37: POC Glucose 238 H 10/05/17 00:48: POC Glucose 321 H 10/05/17 04:18: WBC 6.3, RBC 3.12 L, Hgb 7.4 L, Hct 26.2 L, MCV 84.0, MCH 23.7 L, MCHC 28.2 L, RDW 19.2 H, RDW Differential 56.6 H, Plt Count 243, MPV 9.8, Immature Gran % (Auto) 0.500, Neut % (Auto) 80.8 H, Lymph % (Auto) 11.1 L, [place] % (Auto) 7.4, Eos % (Auto) 0.0, Baso % (Auto) 0.2, Absolute Neuts (auto) 5.1, Absolute Lymphs (auto) 0.70 L, Total Counted Not Reportable 10/05/17 04:18: Sodium 135 L, Potassium 4.6, Chloride 96 L, Carbon Dioxide 32.0, Anion Gap 7, BUN 40 H, Creatinine 0.88, Estim Creat Clear Calc 54.13, Est GFR (MDRD) Af Amer 83, Est GFR (MDRD) Non-Af 69, BUN/Creatinine Ratio 45.2 H, Glucose 360 H, Calcium 8.3 L, Phosphorus 2.2 L, Magnesium 2.3 10/05/17 05:13: POC Glucose 338 H 10/05/17 06:06: Specimen Type ART, Sample Site L Radial, pH 7.47 H, Bicarbonate Actual 33.3 H, POC Total CO2 35, Base Excess 10 H, O2 Saturation 94 L, O2 % 30, ABG pCO2 45.8 H, ABG pO2 69 L, Jerry Test NA, O2 Delivery Device Vent, Vent Mode CPAP PS, POC PEEP 5, POC Pressure Suppt 5, Blood Gas Notified Whom ICU MD, Blood Gas Notified Time 602 10/05/17 11:14: POC Glucose 426 H 10/05/17 16:01: POC Glucose 388 H Current Medications Acetaminophen (Tylenol) 650 mg PO Q4H PRN PRN PRN Reason: TEMP > 100.5 F Last Admin: 10/05/17 11:37 Dose: 650 mg Albuterol Sulfate (Ventolin Aerosols) 2.5 mg INHALATION Q2H PRN PRN PRN Reason: SHORTNESS OF BREATH Albuterol/Ipratropium (Duoneb) 3 ml INHALATION Q6HWA.RT BIBI Last Admin: 10/05/17 13:15 Dose: 3 ml Apixaban (Eliquis) 5 mg PO BID BIBI Artificial Tears (Tears Naturale, Artificial Tears) 1 drop OPHTHALMIC TID PRN PRN PRN Reason: Dry Eye Last Admin: 10/05/17 16:02 Dose: 1 drop Atorvastatin Calcium (Lipitor) 40 mg PO QHS [facility] Carvedilol (Coreg) 25 mg PO BID [facility] Chlorhexidine Gluconate () 1 each TOPICAL DAILY [facility] Last Admin: 10/05/17 06:25 Dose: 1 each Clonidine (Catapres) 0.2 mg PO BID [facility] Last Admin: 10/05/17 11:15 Dose: 0.2 mg Dextrose (D50w Syringe) 0 gm IV X1 PRN; Protocol PRN Reason: Hypoglycemia Glucagon () 1 mg IM .X1 PRN PRN Reason: Hypoglycemia Hydrochlorothiazide (Hctz) 25 mg PO DAILY [facility] Sodium Chloride () 250 mls @ 15 mls/hr IV .[id number] PRN PRN Reason: SALINE FLUSH Last Admin: 10/05/17 11:17 Dose: 15 mls/hr Cefepime HCl 2 gm/ Sodium (Chloride) 100 mls @ 200 mls/hr IV Q12 [facility] Last Admin: 10/05/17 11:14 Dose: 200 mls/hr Insulin Aspart (Novolog Flexpen (Bkc)) 0 units SC ACHS BIBI PRN Reason: Protocol Last Admin: 10/05/17 16:03 Dose: 14 u Insulin Detemir (Levemir (Bkc)) 40 units SC BID [facility] Last Admin: 10/05/17 10:02 Dose: 40 u Levothyroxine Sodium (Synthroid) 137 mcg PO DAILY@0600 [facility] Magnesium Hydroxide (Milk Of Magnesia) 30 ml PO DAILY PRN PRN PRN Reason: Constipation Methylprednisolone (Solu-Medrol) 40 mg IV Q8 [facility] Last Admin: 10/05/17 13:29 Dose: 40 mg Ondansetron HCl (Zofran) 4 mg IV Q8H PRN PRN PRN Reason: Nausea Pantoprazole Sodium (Protonix) 20 mg PO DAILY [facility] Sodium Chloride () 5 - 30 ml IV UD PRN PRN Reason: SALINE FLUSH Last Admin: 10/05/17 10:04 Dose: 10 ml Assessment/Plan Active and Suspected Problems Metabolic encephalopathy (Acute) Hypothermia (Acute) Severe sepsis (Acute) Gram-negative pneumonia (Acute) Acute respiratory failure with hypercapnia (Acute) Hypoglycemia (Acute) 1. Sepsis from pneumonia; continue IV Cefepime 2. Acute Respiratory failure with hypercapnia/ hypoxia; the patient has now been extubated. 3. Pneumonia, HCAP; on IV cefepime. 4. Metabolic encephalopathy; she is alert and oriented to time place and person, I feel she is at her baseline. 5. DM 2; on Levemir and regular insulin sliding scale 6. Hypoglycemia; metformin has been discontinued for now. 7. History of right leg DVT; she is on Eliquis.
--- NOTE | 2017-10-05 16:39 | PN_ITS ---
Patient Problems: Active and Suspected Problems Metabolic encephalopathy (Acute) Hypothermia (Acute) Severe sepsis (Acute) Gram-negative pneumonia (Acute) Acute respiratory failure with hypercapnia (Acute) Hypoglycemia (Acute) Subjective: CC: Acute respiratory failure, sepsis She is now extubated, she is alert and oriented to time place and person. Vitals/I&O's: Vital Signs Temp Pulse Resp BP Pulse Ox 99.3 F H 70 29 H 137/72 H 98 10/05/17 16:00 10/05/17 16:00 10/05/17 16:00 10/05/17 16:00 10/05/17 16:00 Oxygen Flow Rate 2 Oxygen Delivery Method Nasal Cannula Weight: 110.6 kg Body Mass Index (BMI) 43.1 Intake and Output for Last 24 Hours 10/03/17 10/04/17 10/05/17 23:59 23:59 23:59 Intake Total 4160.7 / 4160.7 1409.6 / 1409.6 Output Total 1450 / 1450 2150 / 2150 Balance 2710.7 / 2710.7 -740.4 / -740.4 General: Alert, Oriented x3 Neck: Supple, No JVD Lungs: Clear to auscultation, No wheeze, No rales Cardiovascular: Regular rate, Normal S1, Normal S2 Abdomen: Bowel Sounds Present, Soft, Non Tender, Non-Distended Extremities: No edema Neurological: Cranial nerves II-XII grossly intact, Deep Tendon Reflexes 2+/4 and Symmetrical, Neuro grossly intact, Motor Exam 5/5 strength throughout Microbiology Past 72 Hours 10/04/17 20:45 Sputum, Induced/Lukens Gram Stain - Final 10/04/17 05:15 Mucosa - Nasopharyngeal Respiratory Panel (PCR) - Final 10/04/17 04:45 Urine Catheter - Catheter Streptococcus pneumoniae Antigen ( M - Final 10/04/17 04:45 Urine Catheter - Catheter Legionella Antigen - Final Laboratory Results 10/04/17 17:37: POC Glucose 238 H 10/05/17 00:48: POC Glucose 321 H 10/05/17 04:18: WBC 6.3, RBC 3.12 L, Hgb 7.4 L, Hct 26.2 L, MCV 84.0, MCH 23.7 L , MCHC 28.2 L, RDW 19.2 H, RDW Differential 56.6 H, Plt Count 243, MPV 9.8, Immature Gran % (Auto) 0.500, Neut % (Auto) 80.8 H, Lymph % (Auto) 11.1 L, [place] % (Auto) 7.4, Eos % (Auto) 0.0, Baso % (Auto) 0.2, Absolute Neuts (auto) 5.1, Absolute Lymphs (auto) 0.70 L, Total Counted Not Reportable 10/05/17 04:18: Sodium 135 L, Potassium 4.6, Chloride 96 L, Carbon Dioxide 32.0 , Anion Gap 7, BUN 40 H, Creatinine 0.88, Estim Creat Clear Calc 54.13, Est GFR (MDRD) Af Amer 83, Est GFR (MDRD) Non-Af 69, BUN/Creatinine Ratio 45.2 H, Glucose 360 H, Calcium 8.3 L, Phosphorus 2.2 L, Magnesium 2.3 10/05/17 05:13: POC Glucose 338 H 10/05/17 06:06: Specimen Type ART, Sample Site L Radial, pH 7.47 H, Bicarbonate Actual 33.3 H, POC Total CO2 35, Base Excess 10 H, O2 Saturation 94 L, O2 % 30, ABG pCO2 45.8 H, ABG pO2 69 L, Jerry Test NA, O2 Delivery Device Vent, Vent Mode CPAP PS, POC PEEP 5, POC Pressure Suppt 5, Blood Gas Notified Whom ICU MD, Blood Gas Notified Time 602 10/05/17 11:14: POC Glucose 426 H 10/05/17 16:01: POC Glucose 388 H Current Medications Acetaminophen (Tylenol) 650 mg PO Q4H PRN PRN PRN Reason: TEMP > 100.5 F Last Admin: 10/05/17 11:37 Dose: 650 mg Albuterol Sulfate (Ventolin Aerosols) 2.5 mg INHALATION Q2H PRN PRN PRN Reason: SHORTNESS OF BREATH Albuterol/Ipratropium (Duoneb) 3 ml INHALATION Q6HWA.RT BIBI Last Admin: 10/05/17 13:15 Dose: 3 ml Apixaban (Eliquis) 5 mg PO BID BIBI Artificial Tears (Tears Naturale, Artificial Tears) 1 drop OPHTHALMIC TID PRN PRN PRN Reason: Dry Eye Last Admin: 10/05/17 16:02 Dose: 1 drop Atorvastatin Calcium (Lipitor) 40 mg PO QHS [facility] Carvedilol (Coreg) 25 mg PO BID [facility] Chlorhexidine Gluconate () 1 each TOPICAL DAILY [facility] Last Admin: 10/05/17 06:25 Dose: 1 each Clonidine (Catapres) 0.2 mg PO BID [facility] Last Admin: 10/05/17 11:15 Dose: 0.2 mg Dextrose (D50w Syringe) 0 gm IV X1 PRN; Protocol PRN Reason: Hypoglycemia Glucagon () 1 mg IM .X1 PRN PRN Reason: Hypoglycemia Hydrochlorothiazide (Hctz) 25 mg PO DAILY [facility] Sodium Chloride () 250 mls @ 15 mls/hr IV .[id number] PRN PRN Reason: SALINE FLUSH Last Admin: 10/05/17 11:17 Dose: 15 mls/hr Cefepime HCl 2 gm/ Sodium (Chloride) 100 mls @ 200 mls/hr IV Q12 [facility] Last Admin: 10/05/17 11:14 Dose: 200 mls/hr Insulin Aspart (Novolog Flexpen (Bkc)) 0 units SC ACHS BIBI PRN Reason: Protocol Last Admin: 10/05/17 16:03 Dose: 14 u Insulin Detemir (Levemir (Bkc)) 40 units SC BID [facility] Last Admin: 10/05/17 10:02 Dose: 40 u Levothyroxine Sodium (Synthroid) 137 mcg PO DAILY@0600 [facility] Magnesium Hydroxide (Milk Of Magnesia) 30 ml PO DAILY PRN PRN PRN Reason: Constipation Methylprednisolone (Solu-Medrol) 40 mg IV Q8 [facility] Last Admin: 10/05/17 13:29 Dose: 40 mg Ondansetron HCl (Zofran) 4 mg IV Q8H PRN PRN PRN Reason: Nausea Pantoprazole Sodium (Protonix) 20 mg PO DAILY [facility] Sodium Chloride () 5 - 30 ml IV UD PRN PRN Reason: SALINE FLUSH Last Admin: 10/05/17 10:04 Dose: 10 ml Assessment/Plan Active and Suspected Problems Metabolic encephalopathy (Acute) Hypothermia (Acute) Severe sepsis (Acute) Gram-negative pneumonia (Acute) Acute respiratory failure with hypercapnia (Acute) Hypoglycemia (Acute) 1. Sepsis from pneumonia; continue IV Cefepime 2. Acute Respiratory failure with hypercapnia/ hypoxia; the patient has now been extubated. 3. Pneumonia, HCAP; on IV cefepime. 4. Metabolic encephalopathy; she is alert and oriented to time place and person , I feel she is at her baseline. 5. DM 2; on Levemir and regular insulin sliding scale 6. Hypoglycemia; metformin has been discontinued for now. 7. History of right leg DVT; she is on Eliquis.
[2017-10-05] MEDS: Carvedilol 25 MG Tablet PO (21:24)
[2017-10-05] MEDS: Atorvastatin Calcium 40 MG Tablet PO (21:24)
[2017-10-05] MEDS: APIXABAN 5 MG TABLET PO (21:24)
[2017-10-05 21:41] LABS: Bedside Glucose 392 mg/dL (70-110)
[2017-10-06] VITALS (30 sets, daily range): BP systolic 125–155; BP diastolic 43–92; PULSE 65–81; RESP 17–31; TEMP 36.5–37.1; O2SAT 90–97
[2017-10-06] MEDS: 0.9% NaCl Peripheral Flush Adult/Peds IV ×3 (05:11→21:07)
[2017-10-06] MEDS: CHLORHEXIDINE GLUC 2% CLOTH 1 EACH TOWELETTE TOPICAL (05:11)
[2017-10-06] MEDS: Levothyroxine 137 MCG Tablet PO (05:13)
[2017-10-06 05:16] LABS: Absolute Lymphocyte Count 0.75 X10^3/ul (0.83-4.51); Hematocrit 26.2 % (37-47); Hemoglobin 7.6 g/dl (12.0-15.0); Lymphocyte # 0.75 X10^3/ul (4.0); Lymphocyte % 10.5 % (19-41); Mean Corpuscular Hgb 24.5 pg (27.0-32.0); Mean Corpuscular Volume 84.5 fL (81-99); Mean Platelet Vol. 9.8 fl (6.2-12.0); Monocyte# 0.38 X10^3/uL; Monocyte% 5.3 % (0-10); Neutrophil # 5.99 X10^3/uL (2.7-7.7); Neutrophil % 83.8 % (47-70); Platelet Count 236 K/mm3 (150-450); RBC Distribution Width CV 18.7 % (11.6-14.6); RBC Distribution Width SD 56.2 fl (35.1-43.9); White Blood Count 7.2 K/mm3 (4.4-11.0)
[2017-10-06 05:17] LABS: POSITIVE COUNT NO; POSITIVE DIFFERENTIAL NO; POSITIVE MORPHOLOGY NO
[2017-10-06 05:27] LABS: Anion Gap 7 (5-15); BUN 38 mg/dL (7-18); BUN/Creat Ratio 49.3 RATIO (10-20); Calcium,Total 8.4 mg/dL (8.5-10.1); Chloride 90 mmol/L (98-107); Creatinine, Serum 0.77 mg/dL (0.55-1.02); EST Glomerular Filtration Rate 80 mL/min (>60); Est Glom Filt Rate - Afr Amer 97 mL/min (>60); Estimated Creatinine Clearance 61.86 ml/min; Glucose 365 mg/dL (74-106); Potassium 5.4 mmol/L (3.5-5.1); Sodium Level 130 mmol/L (136-145)
[2017-10-06] MEDS: Ipratropium/Albuterol Sulfate 3 ML AMPUL.NEB INHALATION ×3 (06:44→18:58)
[2017-10-06 06:46] LABS: Bedside Glucose 370 mg/dL (70-110)
--- NOTE | 2017-10-06 07:16 | PCM.PN.INT ---
Subjective: Patient did well overnight. No acute issues were reported. Patient was maintained on nasal cannula oxygen. Nursing did report incontinence, but no nausea, vomiting or diarrhea has been reported. Patient has remained hemodynamically stable. Blood sugars have been elevated. General: Alert, Cooperative, No apparent distress, - - Speaking in full sentences. HEENT: Atraumatic, PERRLA, EOMI, Normocephalic, - - No scleral icterus or injection noted. Oral: Moist Mucosa, No Gingival or Mucosal Lesions/ Ulcerations Neck: Supple, No JVD, No Nodes, Trachea Midline Lungs: No rhonchi, No wheeze, No rales, Diminished, - - Symmetric expansion. No dullness to percussion. Cardiovascular: Regular rate, Regular Rhythm, Normal S1, Normal S2, No murmurs, No rub noted, No Gallop Abdomen: Bowel Sounds Present, Soft, Non Tender, Non-Distended, Obese Extremities: No clubbing, No cyanosis, Capillary Refill Less than 3 Seconds, Edema Skin: No rashes, No breakdown Musculoskeletal: No Tenderness to Palpation of Joints or Extremities Lymphatic: No Cervical, Supraclavicular, or Inguinal Adenopathy Neurological: Cranial nerves II-XII grossly intact, Neuro grossly intact, Motor Exam 5/5 strength throughout Psych/Mental Status: Appropriate, Flat Affect Vital Signs Temp Pulse Resp BP Pulse Ox 36.8 C 69 20 H 142/57 H 96 10/06/17 04:00 10/06/17 06:00 10/06/17 06:00 10/06/17 06:00 10/06/17 06:00 Oxygen Flow Rate 2 Oxygen Delivery Method Nasal Cannula Weight: 112.8 kg Body Mass Index (BMI) 43.1 Intake and Output for Last 24 Hours 10/04/17 10/05/17 10/06/17 23:59 23:59 23:59 Intake Total 4160.7 / 4160.7 2381.6 / 2381.6 200 / 200 Output Total 1450 / 1450 2500 / 2500 Balance 2710.7 / 2710.7 -118.4 / -118.4 200 / 200 Labs (Last 48 Hours) 10/04/17 10/04/17 10/05/17 12:49 17:37 00:48 WBC RBC Hgb Hct MCV MCH MCHC RDW RDW Differential Plt Count MPV Immature Gran % (Auto) Neut % (Auto) Lymph % (Auto) [place] % (Auto) Eos % (Auto) Baso % (Auto) Absolute Neuts (auto) Absolute Lymphs (auto) Total Counted Specimen Type Sample Site pH Bicarbonate Actual POC Total CO2 Base Excess O2 Saturation O2 % ABG pCO2 ABG pO2 Jerry Test O2 Delivery Device Vent Mode POC PEEP POC Pressure Suppt Blood Gas Notified Whom Blood Gas Notified Time Sodium Potassium Chloride Carbon Dioxide Anion Gap BUN Creatinine Estim Creat Clear Calc Est GFR (MDRD) Af Amer Est GFR (MDRD) Non-Af BUN/Creatinine Ratio Glucose Calcium Phosphorus Magnesium POC Glucose 178 H 238 H 321 H 10/05/17 10/05/17 10/05/17 04:18 04:18 05:13 WBC 6.3 RBC 3.12 L Hgb 7.4 L Hct 26.2 L MCV 84.0 MCH 23.7 L MCHC 28.2 L RDW 19.2 H RDW Differential 56.6 H Plt Count 243 MPV 9.8 Immature Gran % (Auto) 0.500 Neut % (Auto) 80.8 H Lymph % (Auto) 11.1 L [place] % (Auto) 7.4 Eos % (Auto) 0.0 Baso % (Auto) 0.2 Absolute Neuts (auto) 5.1 Absolute Lymphs (auto) 0.70 L Total Counted Not Reportable Specimen Type Sample Site pH Bicarbonate Actual POC Total CO2 Base Excess O2 Saturation O2 % ABG pCO2 ABG pO2 Jerry Test O2 Delivery Device Vent Mode POC PEEP POC Pressure Suppt Blood Gas Notified Whom Blood Gas Notified Time Sodium 135 L Potassium 4.6 Chloride 96 L Carbon Dioxide 32.0 Anion Gap 7 BUN 40 H Creatinine 0.88 Estim Creat Clear Calc 54.13 Est GFR (MDRD) Af Amer 83 Est GFR (MDRD) Non-Af 69 BUN/Creatinine Ratio 45.2 H Glucose 360 H Calcium 8.3 L Phosphorus 2.2 L Magnesium 2.3 POC Glucose 338 H 10/05/17 10/05/17 10/05/17 06:06 11:14 16:01 WBC RBC Hgb Hct MCV MCH MCHC RDW RDW Differential Plt Count MPV Immature Gran % (Auto) Neut % (Auto) Lymph % (Auto) [place] % (Auto) Eos % (Auto) Baso % (Auto) Absolute Neuts (auto) Absolute Lymphs (auto) Total Counted Specimen Type ART Sample Site L Radial pH 7.47 H Bicarbonate Actual 33.3 H POC Total CO2 35 Base Excess 10 H O2 Saturation 94 L O2 % 30 ABG pCO2 45.8 H ABG pO2 69 L Jerry Test NA O2 Delivery Device Vent Vent Mode CPAP PS POC PEEP 5 POC Pressure Suppt 5 Blood Gas Notified Whom ICU MD Blood Gas Notified Time 602 Sodium Potassium Chloride Carbon Dioxide Anion Gap BUN Creatinine Estim Creat Clear Calc Est GFR (MDRD) Af Amer Est GFR (MDRD) Non-Af BUN/Creatinine Ratio Glucose Calcium Phosphorus Magnesium POC Glucose 426 H 388 H 10/05/17 10/06/17 10/06/17 21:21 05:10 05:10 WBC 7.2 RBC 3.10 L Hgb 7.6 L Hct 26.2 L MCV 84.5 MCH 24.5 L MCHC 29.0 L RDW 18.7 H RDW Differential 56.2 H Plt Count 236 MPV 9.8 Immature Gran % (Auto) 0.400 Neut % (Auto) 83.8 H Lymph % (Auto) 10.5 L [place] % (Auto) 5.3 Eos % (Auto) 0.0 Baso % (Auto) 0.0 Absolute Neuts (auto) 6.0 Absolute Lymphs (auto) 0.75 L Total Counted Not Reportable Specimen Type Sample Site pH Bicarbonate Actual POC Total CO2 Base Excess O2 Saturation O2 % ABG pCO2 ABG pO2 Jerry Test O2 Delivery Device Vent Mode POC PEEP POC Pressure Suppt Blood Gas Notified Whom Blood Gas Notified Time Sodium 130 L Potassium 5.4 H Chloride 90 L Carbon Dioxide 33.0 H Anion Gap 7 BUN 38 H Creatinine 0.77 Estim Creat Clear Calc 61.86 Est GFR (MDRD) Af Amer 97 Est GFR (MDRD) Non-Af 80 BUN/Creatinine Ratio 49.3 H Glucose 365 H Calcium 8.4 L Phosphorus Magnesium POC Glucose 392 H 10/06/17 06:42 WBC RBC Hgb Hct MCV MCH MCHC RDW RDW Differential Plt Count MPV Immature Gran % (Auto) Neut % (Auto) Lymph % (Auto) [place] % (Auto) Eos % (Auto) Baso % (Auto) Absolute Neuts (auto) Absolute Lymphs (auto) Total Counted Specimen Type Sample Site pH Bicarbonate Actual POC Total CO2 Base Excess O2 Saturation O2 % ABG pCO2 ABG pO2 Jerry Test O2 Delivery Device Vent Mode POC PEEP POC Pressure Suppt Blood Gas Notified Whom Blood Gas Notified Time Sodium Potassium Chloride Carbon Dioxide Anion Gap BUN Creatinine Estim Creat Clear Calc Est GFR (MDRD) Af Amer Est GFR (MDRD) Non-Af BUN/Creatinine Ratio Glucose Calcium Phosphorus Magnesium POC Glucose 370 H Microbiology 10/04/17 20:45 Sputum, Induced/Lukens Gram Stain - Final 10/04/17 05:15 Mucosa - Nasopharyngeal Respiratory Panel (PCR) - Final 10/04/17 04:45 Urine Catheter - Catheter Streptococcus pneumoniae Antigen (M - Final 10/04/17 04:45 Urine Catheter - Catheter Legionella Antigen - Final Assessment/Plan Active and Suspected Problems Metabolic encephalopathy (Acute) Hypothermia (Acute) Severe sepsis (Acute) Gram-negative pneumonia (Acute) Acute respiratory failure with hypercapnia (Acute) Hypoglycemia (Acute) RECOMMENDATIONS: 1. Possibly narrow antibiotic spectrum pending sensitivities 2. Additional regular insulin 3. Wean oxygen as tolerated 4. Increase Levemir therapy 5. Okay to transfer from the intensive care unit IMPRESSIONS: 1. Acute on chronic hypercarbic respiratory failure Patient recently with polymicrobial pneumonia and parainfluenza virus. Patient was extubated yesterday with no complication. Patient does remain on 2 L nasal cannula oxygen. If sputum culture shows only normal jonhson, antibiotics can likely be narrowed in spectrum and treatment for 3 days for E. coli cystitis would be appropriate. Clinical suspicion for decreased respiratory drive secondary to hypoglycemia leading to current condition. 2. Delirium with baseline dementia/metabolic encephalopathy Likely secondary to hypercarbia with additional metabolic/infectious derangements contributing. We will continue to support at this time. Continue with delirium protocol. Patient appears similar to baseline at previous admission. Follow electrolytes on a daily basis 3. Acute kidney injury/hyperkalemia RESOLVED > Likely prerenal in etiology. Continue with p.o. diet. Continue current medical management. Urine output is likely appropriate, but incontinence limits accuracy. No current indications for renal replacement therapy. 4. Elevated cardiac enzymes/demand ischemia Likely secondary to demand ischemia in the setting of respiratory failure and sepsis. Echocardiogram has shown diastolic dysfunction in the recent past, so will have to watch fluid status closely. Patient does have a history of hypertension. No indication for additional cardiac workup at this time. 5. Hypoglycemia Patient for iatrogenic etiology given baseline 70/30 dosing with new onset of nausea and vomiting. Patient has responded to current intervention. Patient with very high requirements in the past. Will increase Levemir therapy. Continue to monitor closely. 6. Normocytic anemia No overt signs of blood loss. Monitor blood counts daily. Plan to transfuse if hemoglobin falls below 7 g/dL. 7. History of normal pressure hydrocephalus/severe depression/diabetes/hypertension/morbid obesity/history of DVT/hypothyroidism Complicates care, management, recovery and prognosis. Continue home medications as indicated. 8. Hypertensive urgency Unclear etiology. Patient did have elevated blood pressures during last hospitalization. Patient has been reinitiated on baseline antihypertensive therapy Code Visit Inpatient E&M: [id number] [facility] Hosp L3
[2017-10-06] MEDS: cloNIDine HCl 0.2 MG Tablet PO ×2 (10:21→20:51)
[2017-10-06] MEDS: APIXABAN 5 MG TABLET PO ×2 (10:21→20:50)
[2017-10-06] MEDS: Pantoprazole Sodium 20 MG Tablet PO (10:21)
[2017-10-06] MEDS: Carvedilol 25 MG Tablet PO ×2 (10:22→20:49)
[2017-10-06] MEDS: hydroCHLOROthiazide 25 MG Tablet PO (10:22)
[2017-10-06] MEDS: Cefdinir 300 MG Capsule PO ×2 (10:22→20:49)
[2017-10-06 11:11] LABS: Bedside Glucose 396 mg/dL (70-110)
--- NOTE | 2017-10-06 11:37 | CASEMGMT ---
SW participated in interdisciplinary rounds this morning, pt will be transferred out of ICU this morning. SW spoke w/pt, explained that when she is ready she will be transferred back to [facility]. Pt agreeable. SW spoke w/Sapna at [facility], let her know that pt may be ready on the weekend to return. She asked if pt could not be sent unless she is medically ready. SW explained that we do not send pts back to nursing homes unless they are clinically ready. Sapna will start the precert today in the hope they can take pt back skilled, but they can take pt on the weekend even without an authorization for skilled, as pt is a group home pt there. SW called pt's brother and guardian, Rosas Fenton, let him know pt may be discharged on the weekend back to [facility]. Rosas states understanding. Green sheet on chart in anticipation of weekend discharge, no further needs are anticipated. CJ Zuniga, CORPORATE TRAINING MANAGER
--- NOTE | 2017-10-06 14:15 | PCM.PN.HOSP ---
Patient Problems: Active and Suspected Problems Metabolic encephalopathy (Acute) Hypothermia (Acute) Severe sepsis (Acute) Gram-negative pneumonia (Acute) Acute respiratory failure with hypercapnia (Acute) Hypoglycemia (Acute) Subjective: CC: Unresponsiveness, acute respiratory failure Objective: This is a 62 year old female who was found unresponsive at her ECF and sent to the ED , she was determined to lhave left obe pneumonia, sepsis, hypothermia and hypoglycemia, she was intubated and admitted to ICU for management of sepsis and acute respiratory failure. Vitals/I&O's: Vital Signs Temp Pulse Resp BP Pulse Ox 98.2 F 74 31 H 130/43 H 94 10/06/17 14:00 10/06/17 14:00 10/06/17 14:00 10/06/17 14:00 10/06/17 14:00 Oxygen Flow Rate 1 Oxygen Delivery Method Nasal Cannula Weight: 112.8 kg Body Mass Index (BMI) 43.1 Intake and Output for Last 24 Hours 10/04/17 10/05/17 10/06/17 23:59 23:59 23:59 Intake Total 4160.7 / 4160.7 2381.6 / 2381.6 600 / 600 Output Total 1450 / 1450 2500 / 2500 Balance 2710.7 / 2710.7 -118.4 / -118.4 600 / 600 General: Alert, Oriented x3 HEENT: Atraumatic Oral: Moist Mucosa Neck: Supple, No JVD Lungs: Wheezes Cardiovascular: Regular rate, Normal S1, Normal S2 Abdomen: Bowel Sounds Present, Soft, Non Tender Extremities: No edema Neurological: Deep Tendon Reflexes 2+/4 and Symmetrical, Motor Exam 5/5 strength throughout Microbiology Past 72 Hours 10/06/17 10:35 Stool Stool Occult Blood (CARLITA) - Final Occult Blood Positive 10/04/17 20:45 Sputum, Induced/Lukens Gram Stain - Final 10/04/17 20:45 Sputum, Induced/Lukens Respiratory Culture - Preliminary Proteus sp. 10/04/17 05:15 Mucosa - Nasopharyngeal Respiratory Panel (PCR) - Final 10/04/17 04:45 Urine Catheter - Catheter Streptococcus pneumoniae Antigen (M - Final 10/04/17 04:45 Urine Catheter - Catheter Legionella Antigen - Final Laboratory Results 10/05/17 16:01: POC Glucose 388 H 10/05/17 21:21: POC Glucose 392 H 10/06/17 05:10: WBC 7.2, RBC 3.10 L, Hgb 7.6 L, Hct 26.2 L, MCV 84.5, MCH 24.5 L, MCHC 29.0 L, RDW 18.7 H, RDW Differential 56.2 H, Plt Count 236, MPV 9.8, Immature Gran % (Auto) 0.400, Neut % (Auto) 83.8 H, Lymph % (Auto) 10.5 L, [place] % (Auto) 5.3, Eos % (Auto) 0.0, Baso % (Auto) 0.0, Absolute Neuts (auto) 6.0, Absolute Lymphs (auto) 0.75 L, Total Counted Not Reportable 10/06/17 05:10: Sodium 130 L, Potassium 5.4 H, Chloride 90 L, Carbon Dioxide 33.0 H, Anion Gap 7, BUN 38 H, Creatinine 0.77, Estim Creat Clear Calc 61.86, Est GFR (MDRD) Af Amer 97, Est GFR (MDRD) Non-Af 80, BUN/Creatinine Ratio 49.3 H, Glucose 365 H, Calcium 8.4 L 10/06/17 06:42: POC Glucose 370 H 10/06/17 10:57: POC Glucose 396 H Current Medications Acetaminophen (Tylenol) 650 mg PO Q4H PRN PRN PRN Reason: TEMP > 100.5 F Last Admin: 10/05/17 21:29 Dose: 650 mg Albuterol Sulfate (Ventolin Aerosols) 2.5 mg INHALATION Q2H PRN PRN PRN Reason: SHORTNESS OF BREATH Albuterol/Ipratropium (Duoneb) 3 ml INHALATION Q6HWA.RT [facility] Last Admin: 10/06/17 13:24 Dose: 3 ml Apixaban (Eliquis) 5 mg PO BID [facility] Last Admin: 10/06/17 10:21 Dose: 5 mg Artificial Tears (Tears Naturale, Artificial Tears) 1 drop OPHTHALMIC TID PRN PRN PRN Reason: Dry Eye Last Admin: 10/06/17 10:30 Dose: 1 drop Atorvastatin Calcium (Lipitor) 40 mg PO QHS [facility] Last Admin: 10/05/17 21:24 Dose: 40 mg Carvedilol (Coreg) 25 mg PO BID [facility] Last Admin: 10/06/17 10:22 Dose: 25 mg Cefdinir (Omnicef [Equiv]) 300 mg PO Q12 [facility] Stop: 10/15/17 22:01 Last Admin: 10/06/17 10:22 Dose: 300 mg Chlorhexidine Gluconate () 1 each TOPICAL DAILY [facility] Last Admin: 10/06/17 05:11 Dose: 1 each Clonidine (Catapres) 0.2 mg PO BID [facility] Last Admin: 10/06/17 10:21 Dose: 0.2 mg Dextrose (D50w Syringe) 0 gm IV X1 PRN; Protocol PRN Reason: Hypoglycemia Glucagon () 1 mg IM .X1 PRN PRN Reason: Hypoglycemia Hydrochlorothiazide (Hctz) 25 mg PO DAILY [facility] Last Admin: 10/06/17 10:22 Dose: 25 mg Sodium Chloride () 250 mls @ 15 mls/hr IV .[id number] PRN PRN Reason: SALINE FLUSH Last Admin: 10/05/17 11:17 Dose: 15 mls/hr Insulin Aspart (Novolog Flexpen (Bkc)) 0 units SC ACHS [facility] PRN Reason: Protocol Last Admin: 10/06/17 10:59 Dose: 14 u Insulin Aspart (Novolog Flexpen (Bkc)) 10 units SC TIDAC [facility] Last Admin: 10/06/17 11:00 Dose: 10 u Insulin Detemir (Levemir (Bkc)) 50 units SC 11,22 [facility] Last Admin: 10/06/17 10:59 Dose: 50 u Levothyroxine Sodium (Synthroid) 137 mcg PO DAILY@0600 [facility] Last Admin: 10/06/17 05:13 Dose: 137 mcg Magnesium Hydroxide (Milk Of Magnesia) 30 ml PO DAILY PRN PRN PRN Reason: Constipation Melatonin (Melatonin) 3 mg PO QHS [facility] Methylprednisolone (Solu-Medrol) 40 mg IV Q8 [facility] Last Admin: 10/06/17 14:02 Dose: 40 mg Ondansetron HCl (Zofran) 4 mg IV Q8H PRN PRN PRN Reason: Nausea Pantoprazole Sodium (Protonix) 20 mg PO DAILY [facility] Last Admin: 10/06/17 10:21 Dose: 20 mg Sodium Chloride () 5 - 30 ml IV UD PRN PRN Reason: SALINE FLUSH Last Admin: 10/06/17 14:02 Dose: 10 ml Assessment/Plan Active and Suspected Problems Metabolic encephalopathy (Acute) Hypothermia (Acute) Severe sepsis (Acute) Gram-negative pneumonia (Acute) Acute respiratory failure with hypercapnia (Acute) Hypoglycemia (Acute) 1. Sepsis from pneumonia; she now remains hemodynamically stable, she was initially treated with IV cefepime and vancomycin , she has now been deescalated to oral antibiotic. 2. Acute Respiratory failure with hypercapnia/ hypoxia; the patient has now been extubated, she is now on supplemental oxygen per nasal cannula, will wean as tolerated. 3. Pneumonia, HCAP; she has been transitioned to p.o. Omnicef 4. Metabolic encephalopathy; she is alert and oriented to time place and person, he is not at her baseline. 5. DM 2; she on Levemir and regular insulin sliding scale 6. Hypoglycemia; metformin has been discontinued for now. 7. History of right leg DVT; she is on Eliquis. 8. Deconditioning/weakness; will start physical and occupational therapy. 9. Position; the patient would now be transferred to the medical floor and ultimately be discharged [facility] the [place] [facility] likely over the weekend. Code Visit Inpatient E&M: [id number] Subs Hosp L2
--- NOTE | 2017-10-06 14:25 | PN_ITS ---
Patient Problems: Active and Suspected Problems Metabolic encephalopathy (Acute) Hypothermia (Acute) Severe sepsis (Acute) Gram-negative pneumonia (Acute) Acute respiratory failure with hypercapnia (Acute) Hypoglycemia (Acute) Subjective: CC: Unresponsiveness, acute respiratory failure Objective: This is a 62 year old female who was found unresponsive at her ECF and sent to the ED , she was determined to lhave left obe pneumonia, sepsis, hypothermia and hypoglycemia, she was intubated and admitted to ICU for management of sepsis and acute respiratory failure. Vitals/I&O's: Vital Signs Temp Pulse Resp BP Pulse Ox 98.2 F 74 31 H 130/43 H 94 10/06/17 14:00 10/06/17 14:00 10/06/17 14:00 10/06/17 14:00 10/06/17 14:00 Oxygen Flow Rate 1 Oxygen Delivery Method Nasal Cannula Weight: 112.8 kg Body Mass Index (BMI) 43.1 Intake and Output for Last 24 Hours 10/04/17 10/05/17 10/06/17 23:59 23:59 23:59 Intake Total 4160.7 / 4160.7 2381.6 / 2381.6 600 / 600 Output Total 1450 / 1450 2500 / 2500 Balance 2710.7 / 2710.7 -118.4 / -118.4 600 / 600 General: Alert, Oriented x3 HEENT: Atraumatic Oral: Moist Mucosa Neck: Supple, No JVD Lungs: Wheezes Cardiovascular: Regular rate, Normal S1, Normal S2 Abdomen: Bowel Sounds Present, Soft, Non Tender Extremities: No edema Neurological: Deep Tendon Reflexes 2+/4 and Symmetrical, Motor Exam 5/5 strength throughout Microbiology Past 72 Hours 10/06/17 10:35 Stool Stool Occult Blood (CARLITA) - Final Occult Blood Positive 10/04/17 20:45 Sputum, Induced/Lukens Gram Stain - Final 10/04/17 20:45 Sputum, Induced/Lukens Respiratory Culture - Preliminary Proteus sp. 10/04/17 05:15 Mucosa - Nasopharyngeal Respiratory Panel (PCR) - Final 10/04/17 04:45 Urine Catheter - Catheter Streptococcus pneumoniae Antigen ( M - Final 10/04/17 04:45 Urine Catheter - Catheter Legionella Antigen - Final Laboratory Results 10/05/17 16:01: POC Glucose 388 H 10/05/17 21:21: POC Glucose 392 H 10/06/17 05:10: WBC 7.2, RBC 3.10 L, Hgb 7.6 L, Hct 26.2 L, MCV 84.5, MCH 24.5 L , MCHC 29.0 L, RDW 18.7 H, RDW Differential 56.2 H, Plt Count 236, MPV 9.8, Immature Gran % (Auto) 0.400, Neut % (Auto) 83.8 H, Lymph % (Auto) 10.5 L, [place] % (Auto) 5.3, Eos % (Auto) 0.0, Baso % (Auto) 0.0, Absolute Neuts (auto) 6.0, Absolute Lymphs (auto) 0.75 L, Total Counted Not Reportable 10/06/17 05:10: Sodium 130 L, Potassium 5.4 H, Chloride 90 L, Carbon Dioxide 33.0 H, Anion Gap 7, BUN 38 H, Creatinine 0.77, Estim Creat Clear Calc 61.86, Est GFR (MDRD) Af Amer 97, Est GFR (MDRD) Non-Af 80, BUN/Creatinine Ratio 49.3 H , Glucose 365 H, Calcium 8.4 L 10/06/17 06:42: POC Glucose 370 H 10/06/17 10:57: POC Glucose 396 H Current Medications Acetaminophen (Tylenol) 650 mg PO Q4H PRN PRN PRN Reason: TEMP > 100.5 F Last Admin: 10/05/17 21:29 Dose: 650 mg Albuterol Sulfate (Ventolin Aerosols) 2.5 mg INHALATION Q2H PRN PRN PRN Reason: SHORTNESS OF BREATH Albuterol/Ipratropium (Duoneb) 3 ml INHALATION Q6HWA.RT [facility] Last Admin: 10/06/17 13:24 Dose: 3 ml Apixaban (Eliquis) 5 mg PO BID [facility] Last Admin: 10/06/17 10:21 Dose: 5 mg Artificial Tears (Tears Naturale, Artificial Tears) 1 drop OPHTHALMIC TID PRN PRN PRN Reason: Dry Eye Last Admin: 10/06/17 10:30 Dose: 1 drop Atorvastatin Calcium (Lipitor) 40 mg PO QHS [facility] Last Admin: 10/05/17 21:24 Dose: 40 mg Carvedilol (Coreg) 25 mg PO BID [facility] Last Admin: 10/06/17 10:22 Dose: 25 mg Cefdinir (Omnicef [Equiv]) 300 mg PO Q12 [facility] Stop: 10/15/17 22:01 Last Admin: 10/06/17 10:22 Dose: 300 mg Chlorhexidine Gluconate () 1 each TOPICAL DAILY [facility] Last Admin: 10/06/17 05:11 Dose: 1 each Clonidine (Catapres) 0.2 mg PO BID [facility] Last Admin: 10/06/17 10:21 Dose: 0.2 mg Dextrose (D50w Syringe) 0 gm IV X1 PRN; Protocol PRN Reason: Hypoglycemia Glucagon () 1 mg IM .X1 PRN PRN Reason: Hypoglycemia Hydrochlorothiazide (Hctz) 25 mg PO DAILY [facility] Last Admin: 10/06/17 10:22 Dose: 25 mg Sodium Chloride () 250 mls @ 15 mls/hr IV .[id number] PRN PRN Reason: SALINE FLUSH Last Admin: 10/05/17 11:17 Dose: 15 mls/hr Insulin Aspart (Novolog Flexpen (Bkc)) 0 units SC ACHS [facility] PRN Reason: Protocol Last Admin: 10/06/17 10:59 Dose: 14 u Insulin Aspart (Novolog Flexpen (Bkc)) 10 units SC TIDAC [facility] Last Admin: 10/06/17 11:00 Dose: 10 u Insulin Detemir (Levemir (Bkc)) 50 units SC 11,22 [facility] Last Admin: 10/06/17 10:59 Dose: 50 u Levothyroxine Sodium (Synthroid) 137 mcg PO DAILY@0600 [facility] Last Admin: 10/06/17 05:13 Dose: 137 mcg Magnesium Hydroxide (Milk Of Magnesia) 30 ml PO DAILY PRN PRN PRN Reason: Constipation Melatonin (Melatonin) 3 mg PO QHS [facility] Methylprednisolone (Solu-Medrol) 40 mg IV Q8 [facility] Last Admin: 10/06/17 14:02 Dose: 40 mg Ondansetron HCl (Zofran) 4 mg IV Q8H PRN PRN PRN Reason: Nausea Pantoprazole Sodium (Protonix) 20 mg PO DAILY [facility] Last Admin: 10/06/17 10:21 Dose: 20 mg Sodium Chloride () 5 - 30 ml IV UD PRN PRN Reason: SALINE FLUSH Last Admin: 10/06/17 14:02 Dose: 10 ml Assessment/Plan Active and Suspected Problems Metabolic encephalopathy (Acute) Hypothermia (Acute) Severe sepsis (Acute) Gram-negative pneumonia (Acute) Acute respiratory failure with hypercapnia (Acute) Hypoglycemia (Acute) 1. Sepsis from pneumonia; she now remains hemodynamically stable, she was initially treated with IV cefepime and vancomycin , she has now been deescalated to oral antibiotic. 2. Acute Respiratory failure with hypercapnia/ hypoxia; the patient has now been extubated, she is now on supplemental oxygen per nasal cannula, will wean as tolerated. 3. Pneumonia, HCAP; she has been transitioned to p.o. Omnicef 4. Metabolic encephalopathy; she is alert and oriented to time place and person , he is not at her baseline. 5. DM 2; she on Levemir and regular insulin sliding scale 6. Hypoglycemia; metformin has been discontinued for now. 7. History of right leg DVT; she is on Eliquis. 8. Deconditioning/weakness; will start physical and occupational therapy. 9. Position; the patient would now be transferred to the medical floor and ultimately be discharged to the group home likely over the weekend. Code Visit Inpatient E&M: [id number] Subs Hosp L2
[2017-10-06 14:41] LABS: Iron 11 ug/dL (50-170); Iron Binding Capacity,Total 435 ug/dL (250-450)
[2017-10-06 17:21] LABS: Bedside Glucose 380 mg/dL (70-110)
[2017-10-06] MEDS: Menthol/Lanolin/Calamine/Znox 113 GM Tube 1 APPLIC TOPICAL (20:44)
[2017-10-06] MEDS: guaiFENesin 10 ML UDC (200MG/10ML) PO (20:44)
[2017-10-06] MEDS: Nystatin Powder 15gm Bottle 1 APPLIC TOPICAL (20:44)
[2017-10-06] MEDS: Sodium Chloride 0.65% 1 SPRAY SPRAY.BTL 2 SPRAY NASAL (20:45)
[2017-10-06] MEDS: Polyethylene Glycol 3350 17 GM PACKET PO (20:47)
[2017-10-06] MEDS: MELATONIN 3 MG TABLET PO (20:48)
[2017-10-06] MEDS: RisperiDONE 2 MG Tablet PO (20:48)
[2017-10-06] MEDS: Venlafaxine HCl 75 MG Tablet PO (20:48)
[2017-10-06] MEDS: Atorvastatin Calcium 40 MG Tablet PO (20:49)
[2017-10-06 21:10] LABS: Bedside Glucose 383 mg/dL (70-110)
[2017-10-07] VITALS (15 sets, daily range): BP systolic 140–165; BP diastolic 68–85; PULSE 63–91; RESP 16–20; TEMP 36.1–36.8; O2SAT 92–96
[2017-10-07] MEDS: Menthol/Lanolin/Calamine/Znox 113 GM Tube 1 APPLIC TOPICAL ×3 (05:17→21:09)
[2017-10-07] MEDS: 0.9% NaCl Peripheral Flush Adult/Peds IV ×3 (05:18→17:15)
[2017-10-07] MEDS: Levothyroxine 137 MCG Tablet PO (05:18)
[2017-10-07] MEDS: Nystatin Powder 15gm Bottle 1 APPLIC TOPICAL ×3 (05:18→21:08)
[2017-10-07] MEDS: Sodium Chloride 0.65% 1 SPRAY SPRAY.BTL 2 SPRAY NASAL (05:19)
[2017-10-07] MEDS: guaiFENesin 10 ML UDC (200MG/10ML) PO ×2 (05:21→14:31)
[2017-10-07] MEDS: Ipratropium/Albuterol Sulfate 3 ML AMPUL.NEB INHALATION ×3 (07:30→19:34)
[2017-10-07 07:46] LABS: Bedside Glucose 336 mg/dL (70-110)
[2017-10-07 08:14] LABS: Absolute Lymphocyte Count 0.63 X10^3/ul (0.83-4.51); Absolute Neutrophil Count 6.2 X10^3/uL (2.0-7.7); Eosinophil# 0.01 X10^3/uL; Eosinophils% 0.1 % (0-5); Hematocrit 28.7 % (37-47); Hemoglobin 8.3 g/dl (12.0-15.0); Lymphocyte # 0.63 X10^3/ul (4.0); Lymphocyte % 8.9 % (19-41); Mean Corp Hgb Conc 28.9 g/gl (32-36); Mean Corpuscular Volume 82.9 fL (81-99); Mean Platelet Vol. 9.7 fl (6.2-12.0); Monocyte# 0.19 X10^3/uL; Monocyte% 2.7 % (0-10); Neutrophil # 6.21 X10^3/uL (2.7-7.7); Neutrophil % 88.2 % (47-70); Platelet Count 222 K/mm3 (150-450); RBC Distribution Width SD 55.4 fl (35.1-43.9); Red Blood Count 3.46 M/mm3 (4.2-5.4); White Blood Count 7.1 K/mm3 (4.4-11.0)
[2017-10-07 08:15] LABS: POSITIVE COUNT NO; POSITIVE DIFFERENTIAL NO; POSITIVE MORPHOLOGY NO
[2017-10-07 08:34] LABS: Anion Gap 4 (5-15); BUN 38 mg/dL (7-18); BUN/Creat Ratio 56.7 RATIO (10-20); Calcium,Total 8.7 mg/dL (8.5-10.1); Chloride 92 mmol/L (98-107); Creatinine, Serum 0.67 mg/dL (0.55-1.02); EST Glomerular Filtration Rate 94 mL/min (>60); Est Glom Filt Rate - Afr Amer 114 mL/min (>60); Estimated Creatinine Clearance 71.09 ml/min; Glucose 314 mg/dL (74-106); Potassium 5.8 mmol/L (3.5-5.1); Sodium Level 129 mmol/L (136-145)
--- NOTE | 2017-10-07 08:48 | PN_ITS ---
Patient Problems: Active and Suspected Problems Metabolic encephalopathy (Acute) Hypothermia (Acute) Severe sepsis (Acute) Gram-negative pneumonia (Acute) Acute respiratory failure with hypercapnia (Acute) Hypoglycemia (Acute) Subjective: Patient transferred out of the intensive care unit yesterday. Patient with no complaints today. Patient has been tolerating p.o. diet. Patient is not reporting any cough. - Physical Exam General: Alert, Cooperative, No apparent distress, - - Morbidly obese. Answering appropriately. Pale appearance HEENT: Atraumatic, PERRLA, EOMI, Normocephalic, - - No scleral icterus or injection noted. Oral: Moist Mucosa, No Gingival or Mucosal Lesions/ Ulcerations Neck: Supple, No JVD, No Nodes, Trachea Midline Lungs: No rhonchi, No wheeze, No rales, Diminished, - - Symmetric expansion. Cardiovascular: Regular rate, Regular Rhythm, Normal S1, Normal S2, No murmurs, No rub noted, No Gallop Abdomen: Bowel Sounds Present, Soft, Non Tender, Non-Distended, Obese Extremities: No clubbing, No cyanosis, Capillary Refill Less than 3 Seconds, Edema Skin: No rashes, No breakdown Musculoskeletal: No Tenderness to Palpation of Joints or Extremities Lymphatic: No Cervical, Supraclavicular, or Inguinal Adenopathy Neurological: Cranial nerves II-XII grossly intact, Neuro grossly intact, Motor Exam 5/5 strength throughout Psych/Mental Status: Appropriate, Flat Affect Vital Signs Temp Pulse Resp BP Pulse Ox 36.7 C 70 18 155/73 H 95 10/07/17 07:47 10/07/17 07:51 10/07/17 07:47 10/07/17 07:47 10/07/17 07:47 Oxygen Flow Rate 2 Oxygen Delivery Method Nasal Cannula Weight: 112.3 kg Body Mass Index (BMI) 43.1 Intake and Output for Last 24 Hours 10/05/17 10/06/17 10/07/17 23:59 23:59 23:59 Intake Total 2381.6 / 2381.6 1000 / 1000 200 / 200 Output Total 2500 / 2500 Balance -118.4 / -118.4 1000 / 1000 200 / 200 Microbiology Past 72 Hours 10/04/17 20:45 Gram Stain - Final Sputum, Induced/Lukens Respiratory Culture - Preliminary Morganella morganii sp morgani Proteus sp. 10/06/17 10:35 Stool Occult Blood (CARLITA) - Final Stool Occult Blood Positive 10/04/17 05:15 Respiratory Panel (PCR) - Final Mucosa - Nasopharyngeal 10/04/17 04:45 Streptococcus pneumoniae Antigen (M - Final Urine Catheter - Catheter 10/04/17 04:45 Legionella Antigen - Final Urine Catheter - Catheter Laboratory Tests Past 24 Hrs 10/06/17 10/07/17 10/07/17 05:10 08:06 08:06 WBC 7.1 RBC 3.46 L Hgb 8.3 L Hct 28.7 L MCV 82.9 MCH 24.0 L MCHC 28.9 L RDW 18.0 H RDW Differential 55.4 H Plt Count 222 MPV 9.7 Immature Gran % (Auto) 0.100 Neut % (Auto) 88.2 H Lymph % (Auto) 8.9 L Terrell % (Auto) 2.7 Eos % (Auto) 0.1 Baso % (Auto) 0.0 Absolute Neuts (auto) 6.2 Absolute Lymphs (auto) 0.63 L Total Counted Not Reportable Sodium 129 L Potassium 5.8 H Chloride 92 L Carbon Dioxide 33.0 H Anion Gap 4 L BUN 38 H Creatinine 0.67 Estim Creat Clear Calc 71.09 Est GFR (MDRD) Af Amer 114 Est GFR (MDRD) Non-Af 94 BUN/Creatinine Ratio 56.7 H Glucose 314 H Calcium 8.7 Iron 11 L TIBC 435 POC Glucose 10/07/17 10/06/17 10/06/17 07:41 20:59 17:10 POC Glucose 336 H 383 H 380 H 10/06/17 10:57 POC Glucose 396 H Assessment/Plan Active and Suspected Problems Metabolic encephalopathy (Acute) Hypothermia (Acute) Severe sepsis (Acute) Gram-negative pneumonia (Acute) Acute respiratory failure with hypercapnia (Acute) Hypoglycemia (Acute) RECOMMENDATIONS: 1. Wean oxygen as tolerated 2. Increase regular insulin with meals 3. Increase activity as able 4. Increase Levemir therapy 5. Okay to transfer from the intensive care unit IMPRESSIONS: 1. Acute on chronic hypercarbic respiratory failure Patient recently with polymicrobial pneumonia and parainfluenza virus. Patient was extubated with no complication. Patient does remain on 2 L nasal cannula oxygen. Sputum culture did grow a Proteus that is similar to previous. Given repeat culture, patient likely requires 10-14 days of antibiotics. Could consider ID evaluation. 2. Delirium with baseline dementia/metabolic encephalopathy Likely secondary to hypercarbia with additional metabolic/infectious derangements contributing. We will continue to support at this time. Continue with delirium protocol. Patient appears similar to baseline at previous admission. Follow electrolytes on a daily basis 3. Acute kidney injury/hyperkalemia RESOLVED > Likely prerenal in etiology. Continue with p.o. diet. Continue current medical management. Urine output is likely appropriate, but incontinence limits accuracy. No current indications for renal replacement therapy. Will dose with Kayexalate today. 4. Elevated cardiac enzymes/demand ischemia Likely secondary to demand ischemia in the setting of respiratory failure and sepsis. Echocardiogram has shown diastolic dysfunction in the recent past, so will have to watch fluid status closely. Patient does have a history of hypertension. No indication for additional cardiac workup at this time. 5. Hypoglycemia Patient for iatrogenic etiology given baseline 70/30 dosing with new onset of nausea and vomiting. Patient has responded to current intervention. Patient with very high requirements in the past. Will increase meal insulin therapy and continue on current Levemir dosing. Continue to monitor closely. 6. Iron deficiency anemia secondary to occult GI blood loss Guaiac is positive. Patient is on anticoagulation. Consider discontinuation of Eliquis therapy. Unclear if patient's POA would be open to a colonoscopy. Iron supplementation would be appropriate. Monitor blood counts daily. Plan to transfuse if hemoglobin falls below 7 g/dL. 7. History of normal pressure hydrocephalus/severe depression/diabetes/ hypertension/morbid obesity/history of DVT/hypothyroidism Complicates care, management, recovery and prognosis. Continue home medications as indicated. 8. Hypertensive urgency Unclear etiology. Patient did have elevated blood pressures during last hospitalization. Patient has been reinitiated on baseline antihypertensive therapy Code Visit Inpatient E&M: [id number] [facility] L3
[2017-10-07] MEDS: Polyethylene Glycol 3350 17 GM PACKET PO (09:00)
[2017-10-07] MEDS: Sodium Polystyrene Sulfonate 15 GM/60 ML UDC 30 GM PO (09:34)
--- NOTE | 2017-10-07 10:53 | PCM.PN.HOSP ---
Patient Problems: Active and Suspected Problems Metabolic encephalopathy (Acute) Hypothermia (Acute) Severe sepsis (Acute) Gram-negative pneumonia (Acute) Acute respiratory failure with hypercapnia (Acute) Hypoglycemia (Acute) Subjective: Patient was seen and examined. She denies any chest pain, SOB, fever or chills. On 2L of oxygen. Vitals/I&O's: Vital Signs Temp Pulse Resp BP Pulse Ox 98.0 F 70 18 155/73 H 95 10/07/17 07:47 10/07/17 07:51 10/07/17 07:47 10/07/17 07:47 10/07/17 07:47 Oxygen Flow Rate 1 Oxygen Delivery Method Nasal Cannula Weight: 112.3 kg Body Mass Index (BMI) 43.1 Intake and Output for Last 24 Hours 10/05/17 10/06/17 10/07/17 23:59 23:59 23:59 Intake Total 2381.6 / 2381.6 1000 / 1000 200 / 200 Output Total 2500 / 2500 Balance -118.4 / -118.4 1000 / 1000 200 / 200 General: Alert, Oriented x3, Cooperative, - - morbidly obese, appears comfortable on 2L oxygen HEENT: Atraumatic, PERRLA, EOMI, Normocephalic Oral: Moist Mucosa Neck: Supple Lungs: Clear to auscultation, Normal air movement Cardiovascular: Regular rate, No murmurs Abdomen: Bowel Sounds Present, Soft, Non Tender, Non-Distended, No Hepato-splenomegaly Extremities: Edema - generalised edema Skin: No rashes, No breakdown Musculoskeletal: No Tenderness to Palpation of Joints or Extremities Lymphatic: No Cervical, Supraclavicular, or Inguinal Adenopathy Neurological: Cranial nerves II-XII grossly intact, Neuro grossly intact Psych/Mental Status: Normal Affect, Appropriate Microbiology Past 72 Hours 10/04/17 20:45 Sputum, Induced/Lukens Gram Stain - Final 10/04/17 20:45 Sputum, Induced/Lukens Respiratory Culture - Preliminary Morganella morganii sp morgani Proteus sp. 10/06/17 10:35 Stool Stool Occult Blood (CARLITA) - Final Occult Blood Positive 10/04/17 05:15 Mucosa - Nasopharyngeal Respiratory Panel (PCR) - Final Laboratory Results 10/06/17 05:10: Iron 11 L, TIBC 435 10/06/17 10:57: POC Glucose 396 H 10/06/17 17:10: POC Glucose 380 H 10/06/17 20:59: POC Glucose 383 H 10/07/17 07:41: POC Glucose 336 H 10/07/17 08:06: WBC 7.1, RBC 3.46 L, Hgb 8.3 L, Hct 28.7 L, MCV 82.9, MCH 24.0 L, MCHC 28.9 L, RDW 18.0 H, RDW Differential 55.4 H, Plt Count 222, MPV 9.7, Immature Gran % (Auto) 0.100, Neut % (Auto) 88.2 H, Lymph % (Auto) 8.9 L, Cuming % (Auto) 2.7, Eos % (Auto) 0.1, Baso % (Auto) 0.0, Absolute Neuts (auto) 6.2, Absolute Lymphs (auto) 0.63 L, Total Counted Not Reportable 10/07/17 08:06: Sodium 129 L, Potassium 5.8 H, Chloride 92 L, Carbon Dioxide 33.0 H, Anion Gap 4 L, BUN 38 H, Creatinine 0.67, Estim Creat Clear Calc 71.09, Est GFR (MDRD) Af Amer 114, Est GFR (MDRD) Non-Af 94, BUN/Creatinine Ratio 56.7 H, Glucose 314 H, Calcium 8.7 Current Medications Acetaminophen (Tylenol) 650 mg PO Q4H PRN PRN PRN Reason: TEMP > 100.5 F Last Admin: 10/05/17 21:29 Dose: 650 mg Albuterol Sulfate (Ventolin Aerosols) 2.5 mg INHALATION Q2H PRN PRN PRN Reason: SHORTNESS OF BREATH Albuterol/Ipratropium (Duoneb) 3 ml INHALATION Q6HWA.RT [facility] Last Admin: 10/07/17 07:30 Dose: 3 ml Apixaban (Eliquis) 5 mg PO BID [facility] Last Admin: 10/06/17 20:50 Dose: 5 mg Artificial Tears (Tears Naturale, Artificial Tears) 1 drop OPHTHALMIC TID PRN PRN PRN Reason: Dry Eye Last Admin: 10/07/17 09:01 Dose: 1 drop Atorvastatin Calcium (Lipitor) 40 mg PO QHS [facility] Last Admin: 10/06/17 20:49 Dose: 40 mg Calamine/Phenol (Calmoseptine Ointment) 1 applic TOPICAL TID [facility] PRN Reason: Protocol Last Admin: 10/07/17 05:17 Dose: 1 applicatio Carvedilol (Coreg) 25 mg PO BID [facility] Last Admin: 10/06/17 20:49 Dose: 25 mg Cefdinir (Omnicef [Equiv]) 300 mg PO Q12 [facility] Stop: 10/15/17 22:01 Last Admin: 10/06/17 20:49 Dose: 300 mg Chlorhexidine Gluconate () 1 each TOPICAL DAILY [facility] Last Admin: 10/06/17 05:11 Dose: 1 each Clonidine (Catapres) 0.2 mg PO BID [facility] Last Admin: 10/06/17 20:51 Dose: 0.2 mg Dextrose (D50w Syringe) 0 gm IV X1 PRN; Protocol PRN Reason: Hypoglycemia Glucagon () 1 mg IM .X1 PRN PRN Reason: Hypoglycemia Guaifenesin (Robitussin) 10 ml PO Q6H PRN PRN PRN Reason: COUGH Last Admin: 10/07/17 05:21 Dose: 10 ml Hydrochlorothiazide (Hctz) 25 mg PO DAILY [facility] Last Admin: 10/06/17 10:22 Dose: 25 mg Sodium Chloride () 250 mls @ 15 mls/hr IV .[id number] PRN PRN Reason: SALINE FLUSH Last Admin: 10/05/17 11:17 Dose: 15 mls/hr Insulin Aspart (Novolog Flexpen (Bkc)) 0 units SC ACHS [facility] PRN Reason: Protocol Last Admin: 10/07/17 07:59 Dose: 12 u Insulin Aspart (Novolog Flexpen (Bkc)) 15 units SC TIDAC [facility] Insulin Detemir (Levemir (Bkc)) 52 units SC 11,22 [facility] Levothyroxine Sodium (Synthroid) 137 mcg PO DAILY@0600 [facility] Last Admin: 10/07/17 05:18 Dose: 137 mcg Magnesium Hydroxide (Milk Of Magnesia) 30 ml PO DAILY PRN PRN PRN Reason: Constipation Melatonin (Melatonin) 3 mg PO QHS [facility] Last Admin: 10/06/17 20:48 Dose: 3 mg Methylprednisolone (Solu-Medrol) 40 mg IV Q8 [facility] Last Admin: 10/07/17 05:18 Dose: 40 mg Nystatin (Mycostatin Powder) 1 applic TOPICAL TID [facility] PRN Reason: Protocol Last Admin: 10/07/17 05:18 Dose: 1 applicatio Ondansetron HCl (Zofran) 4 mg IV Q8H PRN PRN PRN Reason: Nausea Pantoprazole Sodium (Protonix) 20 mg PO DAILY [facility] Last Admin: 10/06/17 10:21 Dose: 20 mg Polyethylene Glycol (Miralax) 17 gm PO DAILY [facility] Last Admin: 10/07/17 09:00 Dose: 17 gm Risperidone (Risperdal) 2 mg PO BID [facility] Last Admin: 10/06/17 20:48 Dose: 2 mg Sodium Chloride () 5 - 30 ml IV UD PRN PRN Reason: SALINE FLUSH Last Admin: 10/07/17 05:18 Dose: 10 ml Sodium Chloride () 5 - 30 ml IV UD PRN PRN Reason: SALINE FLUSH Sodium Chloride () 10 ml IV UD PRN PRN Reason: PICC FLUSH Sodium Chloride ([place] Nasal [place]) 2 spray NASAL TID PRN PRN PRN Reason: NASAL DRYNESS Last Admin: 10/07/17 05:19 Dose: 2 spray Venlafaxine HCl (Effexor) 75 mg PO BID [facility] Last Admin: 10/06/17 20:48 Dose: 75 mg Assessment/Plan Active and Suspected Problems Metabolic encephalopathy (Acute) Hypothermia (Acute) Severe sepsis (Acute) Gram-negative pneumonia (Acute) Acute respiratory failure with hypercapnia (Acute) Hypoglycemia (Acute) 62 year old female who was admitted on 10/02/17 after being found unresponsive at her skilled nursing. She was intubated, managed in ICU as acute respiratory failure and severe sepsis secondary to left lobe pneumonia and hypoglycemia. 1. Severe sepsis secondary to HCAP, stable vitals, improved leucocytosis, currently on po antibiotics. 2. Iron deficiency anemia, FOBT positive, on PPI, will consult Dr. Lagunas for colonoscopy, increase PPI to BID, Hb is 8.3, will continue to monitor and transfuse when less than 7. 3. Acute Respiratory failure with hypercapnia/hypoxia, s/p extubation, improved, on 2L oxygen, will continue to wean off oxygen. 4. HCAP, sputum cultures growing morganella morganii, proteus sp, urine legionella and streptococcal antigen are negative, blood cultures are negative. 5. Metabolic encephalopathy secondary to hypoglycemia, resolved 6.Type 2DM, HbA1c is 8.6, admitted with hypoglycemia, BS are now uncontrolled on Levemir and regular insulin sliding scale, off metformin. 7. History of right leg DVT, on Eliquis. 8. Hyperkalemia, not on potassium, will repeat blood work 9. Hyponatremia, acute, not symptomatic, likely secondary to fluid shifts, patient is also on HCTZ, will repeat BMP. 10. Deconditioning/weakness, physical and occupational therapy consulted Code Visit Inpatient E&M: [id number] Subs Hosp L2
--- NOTE | 2017-10-07 11:06 | PN_ITS ---
Patient Problems: Active and Suspected Problems Metabolic encephalopathy (Acute) Hypothermia (Acute) Severe sepsis (Acute) Gram-negative pneumonia (Acute) Acute respiratory failure with hypercapnia (Acute) Hypoglycemia (Acute) Subjective: Patient was seen and examined. She denies any chest pain, SOB, fever or chills. On 2L of oxygen. Vitals/I&O's: Vital Signs Temp Pulse Resp BP Pulse Ox 98.0 F 70 18 155/73 H 95 10/07/17 07:47 10/07/17 07:51 10/07/17 07:47 10/07/17 07:47 10/07/17 07:47 Oxygen Flow Rate 1 Oxygen Delivery Method Nasal Cannula Weight: 112.3 kg Body Mass Index (BMI) 43.1 Intake and Output for Last 24 Hours 10/05/17 10/06/17 10/07/17 23:59 23:59 23:59 Intake Total 2381.6 / 2381.6 1000 / 1000 200 / 200 Output Total 2500 / 2500 Balance -118.4 / -118.4 1000 / 1000 200 / 200 General: Alert, Oriented x3, Cooperative, - - morbidly obese, appears comfortable on 2L oxygen HEENT: Atraumatic, PERRLA, EOMI, Normocephalic Oral: Moist Mucosa Neck: Supple Lungs: Clear to auscultation, Normal air movement Cardiovascular: Regular rate, No murmurs Abdomen: Bowel Sounds Present, Soft, Non Tender, Non-Distended, No Hepato- splenomegaly Extremities: Edema - generalised edema Skin: No rashes, No breakdown Musculoskeletal: No Tenderness to Palpation of Joints or Extremities Lymphatic: No Cervical, Supraclavicular, or Inguinal Adenopathy Neurological: Cranial nerves II-XII grossly intact, Neuro grossly intact Psych/Mental Status: Normal Affect, Appropriate Microbiology Past 72 Hours 10/04/17 20:45 Sputum, Induced/Lukens Gram Stain - Final 10/04/17 20:45 Sputum, Induced/Lukens Respiratory Culture - Preliminary Morganella morganii sp morgani Proteus sp. 10/06/17 10:35 Stool Stool Occult Blood (CARLITA) - Final Occult Blood Positive 10/04/17 05:15 Mucosa - Nasopharyngeal Respiratory Panel (PCR) - Final Laboratory Results 10/06/17 05:10: Iron 11 L, TIBC 435 10/06/17 10:57: POC Glucose 396 H 10/06/17 17:10: POC Glucose 380 H 10/06/17 20:59: POC Glucose 383 H 10/07/17 07:41: POC Glucose 336 H 10/07/17 08:06: WBC 7.1, RBC 3.46 L, Hgb 8.3 L, Hct 28.7 L, MCV 82.9, MCH 24.0 L , MCHC 28.9 L, RDW 18.0 H, RDW Differential 55.4 H, Plt Count 222, MPV 9.7, Immature Gran % (Auto) 0.100, Neut % (Auto) 88.2 H, Lymph % (Auto) 8.9 L, Meagher % (Auto) 2.7, Eos % (Auto) 0.1, Baso % (Auto) 0.0, Absolute Neuts (auto) 6.2, Absolute Lymphs (auto) 0.63 L, Total Counted Not Reportable 10/07/17 08:06: Sodium 129 L, Potassium 5.8 H, Chloride 92 L, Carbon Dioxide 33.0 H, Anion Gap 4 L, BUN 38 H, Creatinine 0.67, Estim Creat Clear Calc 71.09, Est GFR (MDRD) Af Amer 114, Est GFR (MDRD) Non-Af 94, BUN/Creatinine Ratio 56.7 H, Glucose 314 H, Calcium 8.7 Current Medications Acetaminophen (Tylenol) 650 mg PO Q4H PRN PRN PRN Reason: TEMP > 100.5 F Last Admin: 10/05/17 21:29 Dose: 650 mg Albuterol Sulfate (Ventolin Aerosols) 2.5 mg INHALATION Q2H PRN PRN PRN Reason: SHORTNESS OF BREATH Albuterol/Ipratropium (Duoneb) 3 ml INHALATION Q6HWA.RT [facility] Last Admin: 10/07/17 07:30 Dose: 3 ml Apixaban (Eliquis) 5 mg PO BID [facility] Last Admin: 10/06/17 20:50 Dose: 5 mg Artificial Tears (Tears Naturale, Artificial Tears) 1 drop OPHTHALMIC TID PRN PRN PRN Reason: Dry Eye Last Admin: 10/07/17 09:01 Dose: 1 drop Atorvastatin Calcium (Lipitor) 40 mg PO QHS [facility] Last Admin: 10/06/17 20:49 Dose: 40 mg Calamine/Phenol (Calmoseptine Ointment) 1 applic TOPICAL TID [facility] PRN Reason: Protocol Last Admin: 10/07/17 05:17 Dose: 1 applicatio Carvedilol (Coreg) 25 mg PO BID [facility] Last Admin: 10/06/17 20:49 Dose: 25 mg Cefdinir (Omnicef [Equiv]) 300 mg PO Q12 [facility] Stop: 10/15/17 22:01 Last Admin: 10/06/17 20:49 Dose: 300 mg Chlorhexidine Gluconate () 1 each TOPICAL DAILY [facility] Last Admin: 10/06/17 05:11 Dose: 1 each Clonidine (Catapres) 0.2 mg PO BID [facility] Last Admin: 10/06/17 20:51 Dose: 0.2 mg Dextrose (D50w Syringe) 0 gm IV X1 PRN; Protocol PRN Reason: Hypoglycemia Glucagon () 1 mg IM .X1 PRN PRN Reason: Hypoglycemia Guaifenesin (Robitussin) 10 ml PO Q6H PRN PRN PRN Reason: COUGH Last Admin: 10/07/17 05:21 Dose: 10 ml Hydrochlorothiazide (Hctz) 25 mg PO DAILY [facility] Last Admin: 10/06/17 10:22 Dose: 25 mg Sodium Chloride () 250 mls @ 15 mls/hr IV .[id number] PRN PRN Reason: SALINE FLUSH Last Admin: 10/05/17 11:17 Dose: 15 mls/hr Insulin Aspart (Novolog Flexpen (Bkc)) 0 units SC ACHS [facility] PRN Reason: Protocol Last Admin: 10/07/17 07:59 Dose: 12 u Insulin Aspart (Novolog Flexpen (Bkc)) 15 units SC TIDAC [facility] Insulin Detemir (Levemir (Bkc)) 52 units SC 11,22 [facility] Levothyroxine Sodium (Synthroid) 137 mcg PO DAILY@0600 [facility] Last Admin: 10/07/17 05:18 Dose: 137 mcg Magnesium Hydroxide (Milk Of Magnesia) 30 ml PO DAILY PRN PRN PRN Reason: Constipation Melatonin (Melatonin) 3 mg PO QHS [facility] Last Admin: 10/06/17 20:48 Dose: 3 mg Methylprednisolone (Solu-Medrol) 40 mg IV Q8 [facility] Last Admin: 10/07/17 05:18 Dose: 40 mg Nystatin (Mycostatin Powder) 1 applic TOPICAL TID [facility] PRN Reason: Protocol Last Admin: 10/07/17 05:18 Dose: 1 applicatio Ondansetron HCl (Zofran) 4 mg IV Q8H PRN PRN PRN Reason: Nausea Pantoprazole Sodium (Protonix) 20 mg PO DAILY [facility] Last Admin: 10/06/17 10:21 Dose: 20 mg Polyethylene Glycol (Miralax) 17 gm PO DAILY [facility] Last Admin: 10/07/17 09:00 Dose: 17 gm Risperidone (Risperdal) 2 mg PO BID [facility] Last Admin: 10/06/17 20:48 Dose: 2 mg Sodium Chloride () 5 - 30 ml IV UD PRN PRN Reason: SALINE FLUSH Last Admin: 10/07/17 05:18 Dose: 10 ml Sodium Chloride () 5 - 30 ml IV UD PRN PRN Reason: SALINE FLUSH Sodium Chloride () 10 ml IV UD PRN PRN Reason: PICC FLUSH Sodium Chloride ([place] Nasal [place]) 2 spray NASAL TID PRN PRN PRN Reason: NASAL DRYNESS Last Admin: 10/07/17 05:19 Dose: 2 spray Venlafaxine HCl (Effexor) 75 mg PO BID [facility] Last Admin: 10/06/17 20:48 Dose: 75 mg Assessment/Plan Active and Suspected Problems Metabolic encephalopathy (Acute) Hypothermia (Acute) Severe sepsis (Acute) Gram-negative pneumonia (Acute) Acute respiratory failure with hypercapnia (Acute) Hypoglycemia (Acute) 62 year old female who was admitted on 10/02/17 after being found unresponsive at her intermediate. She was intubated, managed in ICU as acute respiratory failure and severe sepsis secondary to left lobe pneumonia and hypoglycemia. 1. Severe sepsis secondary to HCAP, stable vitals, improved leucocytosis, currently on po antibiotics. 2. Iron deficiency anemia, FOBT positive, on PPI, will consult Dr. Lagunas for colonoscopy, increase PPI to BID, Hb is 8.3, will continue to monitor and transfuse when less than 7. 3. Acute Respiratory failure with hypercapnia/hypoxia, s/p extubation, improved , on 2L oxygen, will continue to wean off oxygen. 4. HCAP, sputum cultures growing morganella morganii, proteus sp, urine legionella and streptococcal antigen are negative, blood cultures are negative. 5. Metabolic encephalopathy secondary to hypoglycemia, resolved 6.Type 2DM, HbA1c is 8.6, admitted with hypoglycemia, BS are now uncontrolled on Levemir and regular insulin sliding scale, off metformin. 7. History of right leg DVT, on Eliquis. 8. Hyperkalemia, not on potassium, will repeat blood work 9. Hyponatremia, acute, not symptomatic, likely secondary to fluid shifts, patient is also on HCTZ, will repeat BMP. 10. Deconditioning/weakness, physical and occupational therapy consulted Code Visit Inpatient E&M: [id number] Subs Hosp L2
[2017-10-07 11:41] LABS: Bedside Glucose 388 mg/dL (70-110)
[2017-10-07 12:16] LABS: Anion Gap 6 (5-15); BUN 37 mg/dL (7-18); BUN/Creat Ratio 49.4 RATIO (10-20); Calcium,Total 8.8 mg/dL (8.5-10.1); Chloride 90 mmol/L (98-107); Creatinine, Serum 0.75 mg/dL (0.55-1.02); EST Glomerular Filtration Rate 83 mL/min (>60); Est Glom Filt Rate - Afr Amer 101 mL/min (>60); Estimated Creatinine Clearance 63.51 ml/min; Glucose 379 mg/dL (74-106); Potassium 5.7 mmol/L (3.5-5.1); Sodium Level 127 mmol/L (136-145)
[2017-10-07] MEDS: RisperiDONE 2 MG Tablet PO ×2 (13:28→21:15)
[2017-10-07] MEDS: cloNIDine HCl 0.2 MG Tablet PO ×2 (13:28→21:09)
[2017-10-07] MEDS: APIXABAN 5 MG TABLET PO ×2 (13:29→21:11)
[2017-10-07] MEDS: Cefdinir 300 MG Capsule PO ×2 (13:29→21:15)
[2017-10-07] MEDS: Venlafaxine HCl 75 MG Tablet PO ×2 (13:29→21:11)
[2017-10-07] MEDS: Pantoprazole Sodium 40 MG Tablet PO ×2 (13:35→21:40)
[2017-10-07] MEDS: Ferrous Sulfate 325 MG Tablet PO ×2 (13:38→16:14)
[2017-10-07] MEDS: CHLORHEXIDINE GLUC 2% CLOTH 1 EACH TOWELETTE TOPICAL (13:55)
[2017-10-07 16:06] LABS: Bedside Glucose 321 mg/dL (70-110)
[2017-10-07 16:43] LABS: Anion Gap 2 (5-15); BUN 33 mg/dL (7-18); BUN/Creat Ratio 46.9 RATIO (10-20); Chloride 89 mmol/L (98-107); EST Glomerular Filtration Rate 89 mL/min (>60); Est Glom Filt Rate - Afr Amer 108 mL/min (>60); Estimated Creatinine Clearance 68.05 ml/min; Glucose 314 mg/dL (74-106); Potassium 5.7 mmol/L (3.5-5.1); Sodium Level 127 mmol/L (136-145)
[2017-10-07] MEDS: Furosemide 20 MG/2 ML VIAL IV (17:15)
[2017-10-07] MEDS: Albuterol 2.5 MG/3 ML VIAL.NEB. INHALATION (17:20)
[2017-10-07] MEDS: Carvedilol 25 MG Tablet PO (21:11)
[2017-10-07] MEDS: Atorvastatin Calcium 40 MG Tablet PO (21:14)
[2017-10-07] MEDS: MELATONIN 3 MG TABLET PO (21:14)
[2017-10-07 21:36] LABS: Bedside Glucose 279 mg/dL (70-110)
[2017-10-07 22:45] LABS: Anion Gap 5 (5-15); BUN 29 mg/dL (7-18); BUN/Creat Ratio 43.9 RATIO (10-20); Calcium,Total 8.5 mg/dL (8.5-10.1); Chloride 91 mmol/L (98-107); Creatinine, Serum 0.66 mg/dL (0.55-1.02); EST Glomerular Filtration Rate 96 mL/min (>60); Est Glom Filt Rate - Afr Amer 116 mL/min (>60); Estimated Creatinine Clearance 72.17 ml/min; Glucose 256 mg/dL (74-106); Sodium Level 133 mmol/L (136-145)
[2017-10-08] VITALS (12 sets, daily range): BP systolic 126–151; BP diastolic 50–82; PULSE 70–78; RESP 16–18; TEMP 36.4–36.8; O2SAT 96–98
[2017-10-08 06:37] LABS: Anion Gap 2 (5-15); BUN 31 mg/dL (7-18); BUN/Creat Ratio 51.1 RATIO (10-20); Calcium,Total 8.6 mg/dL (8.5-10.1); Chloride 90 mmol/L (98-107); Creatinine, Serum 0.61 mg/dL (0.55-1.02); EST Glomerular Filtration Rate 106 mL/min (>60); Est Glom Filt Rate - Afr Amer 128 mL/min (>60); Estimated Creatinine Clearance 78.09 ml/min; Glucose 135 mg/dL (74-106); Potassium 4.7 mmol/L (3.5-5.1); Sodium Level 132 mmol/L (136-145)
[2017-10-08] MEDS: Nystatin Powder 15gm Bottle 1 APPLIC TOPICAL ×3 (06:55→22:40)
[2017-10-08] MEDS: Menthol/Lanolin/Calamine/Znox 113 GM Tube 1 APPLIC TOPICAL ×3 (06:56→22:41)
[2017-10-08] MEDS: Levothyroxine 137 MCG Tablet PO (06:57)
--- NOTE | 2017-10-08 06:58 | PN_ITS ---
Patient Problems: Active and Suspected Problems Metabolic encephalopathy (Acute) Hypothermia (Acute) Severe sepsis (Acute) Gram-negative pneumonia (Acute) Acute respiratory failure with hypercapnia (Acute) Hypoglycemia (Acute) Subjective: Patient did well overnight. No acute issues have been reported. Patient denies any obvious bleeding. Patient believes respiratory status is back to normal. Patient is not reporting any cough. - Physical Exam General: Alert, Cooperative, No apparent distress, - - Speaking in full sentences. Morbidly obese. Appears pale. HEENT: Atraumatic, PERRLA, EOMI, Normocephalic, - - No scleral icterus or injection noted. Oral: Moist Mucosa, No Gingival or Mucosal Lesions/ Ulcerations Neck: Supple, No JVD, No Nodes, Trachea Midline Lungs: No rhonchi, No wheeze, No rales, Diminished, - - Symmetric expansion. No dullness to percussion. Cardiovascular: Regular rate, Regular Rhythm, Normal S1, Normal S2, No murmurs, No rub noted, No Gallop Abdomen: Bowel Sounds Present, Soft, Non Tender, Non-Distended, Obese Extremities: No clubbing, No cyanosis, Capillary Refill Less than 3 Seconds, Edema Skin: No rashes, No breakdown Musculoskeletal: No Tenderness to Palpation of Joints or Extremities Lymphatic: No Cervical, Supraclavicular, or Inguinal Adenopathy Neurological: Cranial nerves II-XII grossly intact, Neuro grossly intact Psych/Mental Status: Appropriate, Flat Affect Vital Signs Temp Pulse Resp BP Pulse Ox 36.4 C L 74 18 129/50 H 97 10/08/17 02:53 10/08/17 02:53 10/08/17 02:53 10/08/17 02:53 10/08/17 02:53 Oxygen Flow Rate 2 Oxygen Delivery Method Nasal Cannula Weight: 113 kg Body Mass Index (BMI) 43.1 Intake and Output for Last 24 Hours 10/06/17 10/07/17 10/08/17 23:59 23:59 23:59 Intake Total 1000 / 1000 1000 / 1000 Balance 1000 / 1000 1000 / 1000 Microbiology Past 72 Hours 10/04/17 20:45 Gram Stain - Final Sputum, Induced/Lukens Respiratory Culture - Preliminary Morganella morganii sp morgani Proteus sp. 10/06/17 10:35 Stool Occult Blood (CARLITA) - Final Stool Occult Blood Positive Laboratory Tests Past 24 Hrs 10/07/17 10/07/17 10/07/17 08:06 08:06 11:34 WBC 7.1 RBC 3.46 L Hgb 8.3 L Hct 28.7 L MCV 82.9 MCH 24.0 L MCHC 28.9 L RDW 18.0 H RDW Differential 55.4 H Plt Count 222 MPV 9.7 Immature Gran % (Auto) 0.100 Neut % (Auto) 88.2 H Lymph % (Auto) 8.9 L White % (Auto) 2.7 Eos % (Auto) 0.1 Baso % (Auto) 0.0 Absolute Neuts (auto) 6.2 Absolute Lymphs (auto) 0.63 L Total Counted Not Reportable Sodium 129 L 127 L Potassium 5.8 H 5.7 H Chloride 92 L 90 L Carbon Dioxide 33.0 H 31.0 Anion Gap 4 L 6 BUN 38 H 37 H Creatinine 0.67 0.75 Estim Creat Clear Calc 71.09 63.51 Est GFR (MDRD) Af Amer 114 101 Est GFR (MDRD) Non-Af 94 83 BUN/Creatinine Ratio 56.7 H 49.4 H Glucose 314 H 379 H Calcium 8.7 8.8 10/07/17 10/07/17 10/08/17 16:10 22:20 05:18 WBC RBC Hgb Hct MCV MCH MCHC RDW RDW Differential Plt Count MPV Immature Gran % (Auto) Neut % (Auto) Lymph % (Auto) White % (Auto) Eos % (Auto) Baso % (Auto) Absolute Neuts (auto) Absolute Lymphs (auto) Total Counted Sodium 127 L 133 L 132 L Potassium 5.7 H 5.0 4.7 Chloride 89 L 91 L 90 L Carbon Dioxide 36.0 H 37.0 H 40.0 H Anion Gap 2 L 5 2 L BUN 33 H 29 H 31 H Creatinine 0.70 0.66 0.61 Estim Creat Clear Calc 68.05 72.17 78.09 Est GFR (MDRD) Af Amer 108 116 128 Est GFR (MDRD) Non-Af 89 96 106 BUN/Creatinine Ratio 46.9 H 43.9 H 51.1 H Glucose 314 H 256 H 135 H Calcium 9.0 8.5 8.6 POC Glucose 10/07/17 10/07/17 10/07/17 21:06 16:03 11:29 POC Glucose 279 H 321 H 388 H 10/07/17 07:41 POC Glucose 336 H Assessment/Plan Active and Suspected Problems Metabolic encephalopathy (Acute) Hypothermia (Acute) Severe sepsis (Acute) Gram-negative pneumonia (Acute) Acute respiratory failure with hypercapnia (Acute) Hypoglycemia (Acute) RECOMMENDATIONS: 1. Wean oxygen as tolerated 2. Continue regular insulin with meals and Levemir at current dosing 3. Increase activity as able 4. Will sign off from a critical care/pulmonary perspective IMPRESSIONS: 1. Acute on chronic hypercarbic respiratory failure Patient recently with polymicrobial pneumonia and parainfluenza virus. Patient was extubated with no complication. Patient does remain on 2 L nasal cannula oxygen, but saturations indicate patient could likely be weaned to room air. Sputum culture did grow a Proteus that is similar to previous. Given repeat culture, patient likely requires 10-14 days of antibiotics. Could consider ID evaluation. 2. Delirium with baseline dementia/metabolic encephalopathy Likely secondary to hypercarbia with additional metabolic/infectious derangements contributing. We will continue to support at this time. Continue with delirium protocol. Patient appears similar to baseline at previous admission. Follow electrolytes on a daily basis 3. Acute kidney injury/hyperkalemia RESOLVED > Likely prerenal in etiology. Continue with p.o. diet. Continue current medical management. Urine output is likely appropriate, but incontinence limits accuracy. No current indications for renal replacement therapy. Will dose with Kayexalate today. 4. Elevated cardiac enzymes/demand ischemia Likely secondary to demand ischemia in the setting of respiratory failure and sepsis. Echocardiogram has shown diastolic dysfunction in the recent past, so will have to watch fluid status closely. Patient does have a history of difficult to control hypertension. Patient's blood pressure appears to be appropriate at this time. No indication for additional cardiac workup at this time. 5. Hypoglycemia Patient for iatrogenic etiology given baseline 70/30 dosing with new onset of nausea and vomiting. Patient has responded to current intervention. Patient with very high requirements in the past. Will continue meal insulin therapy and current Levemir dosing. Continue to monitor closely. 6. Iron deficiency anemia secondary to occult GI blood loss Guaiac is positive. Patient is on anticoagulation. Consider discontinuation of Eliquis therapy. Unclear if patient's POA would be open to a colonoscopy. Iron supplementation would be appropriate. Monitor blood counts daily. Plan to transfuse if hemoglobin falls below 7 g/dL. 7. History of normal pressure hydrocephalus/severe depression/diabetes/ hypertension/morbid obesity/history of DVT/hypothyroidism Complicates care, management, recovery and prognosis. Continue home medications as indicated. 8. Hypertensive urgency Unclear etiology. Patient did have elevated blood pressures during last hospitalization. Patient has been reinitiated on baseline antihypertensive therapy Code Visit Inpatient E&M: 03319 Subs Hosp L2
[2017-10-08 07:11] LABS: Bedside Glucose 112 mg/dL (70-110)
[2017-10-08] MEDS: Ipratropium/Albuterol Sulfate 3 ML AMPUL.NEB INHALATION ×3 (07:20→19:33)
--- NOTE | 2017-10-08 08:31 | CPS ---
pt sleepy at this time
--- NOTE | 2017-10-08 09:27 | RAD_ITS ---
STUDY: X-RAY CHEST REASON FOR EXAM: Female, 62 years old. Cough. TECHNIQUE: Frontal and lateral views of the chest. COMPARISON: October 04, 2017 FINDINGS: There is a right subclavian catheter with the tip in the lower SVC, unchanged. The NG and endotracheal tubes have been removed. There is low volume inspiration. There is a diffuse interstitial pattern with bilateral pleural effusions, left greater than right, probably unchanged from the prior study. The findings are compatible with interstitial edema/congestive failure with pleural effusions. There is stable cardiomegaly. Normal mediastinum and christiane. Normal visualized pulmonary arteries. Normal visualized aortic arch and descending thoracic aorta. Normal visualized thoracic spine. Normal visualized ribs, clavicles, and shoulders. There is no demonstrated abnormality of the visualized soft tissue structures of the upper abdomen. RAD/Chest PA and Lateral IMPRESSION: Removal of endotracheal and NG tube. Stable right subclavian catheter. Findings compatible with interstitial edema/congestive failure with effusions. Electronically Signed: Oleg Kate MD at 16:48 EST , Service support ,
--- NOTE | 2017-10-08 09:29 | PCM.CONS.GEN ---
Problem List (1) Anemia Status: Acute (2) Acute respiratory failure with hypercapnia Status: Acute (3) Gram-negative pneumonia Status: Acute (4) Severe sepsis Status: Acute (5) Mental retardation Status: Chronic Reason for Consult Date of Consultation: 10/08/17 History of Present Illness: The patient is a 62 year old F with a history of mental retardation and schizophrenia?. The patient was admitted on October 04 with pneumonia and severe sepsis. She has a history of right leg DVT for which she is currently on Eliquis. The patient was found on admission to have iron deficiency anemia parameters and hemoglobin of 8. She had her stool tested is occult blood positive. She responded to treatment for her pneumonia and is currently doing well. I was consulted by Dr. Coy for anemia. We discussed the options of delayed endoscopy versus endoscopy on this hospitalization given her above conditions. We felt that given the challenges of her mental retardation and likely need for continued anticoagulation, performing endoscopy this hospitalization would be a better option than trying to perform outpatient bowel prep a a later date. Overall-patient is a poor historian who complains of no abdominal symptoms who notes no black tarry stools or other difficulties. Past Medical History Past Medical History (Chronic Problems): Chronic Problems Mental retardation (Chronic) Paresthesia (Chronic) Hx of shortness of breath (Chronic) Morbid obesity (Chronic) Hypertension (Chronic) Type 2 diabetes mellitus without complications (Chronic) Insomnia (Chronic) Depressive disorder (Chronic) Allergies naproxen Allergy (Verified 10/04/17 00:46) Rash Penicillins Allergy (Verified 10/04/17 00:46) Rash Home Medications: Ambulatory Orders Medication Instructions Recorded Acetaminophen 2 tab PO DINNER 10/04/17 Albuterol Aerosols [Ventolin 2.5 mg INHALATION Q4H PRN PRN 10/04/17 Aerosols] Apixaban [Eliquis] 5 mg PO BID 10/04/17 Atorvastatin Calcium 40 mg PO QHS 10/04/17 Carvedilol 12.5 mg PO BID 10/04/17 Clonidine HCl 0.1 mg PO BID 10/04/17 Fluticasone Propionate [Flovent 50 mcg IH DAILY 10/04/17 Diskus] Guaifenesin 10 ml PO Q6H PRN 10/04/17 Hydrochlorothiazide [Hctz] 25 mg PO DAILY 10/04/17 Insulin Aspart Protam & Aspart 26 unit SQ BREAKFAST 10/04/17 [Novolog Mix 70-30 Vial] Insulin Aspart Protam & Aspart 36 unit SQ DINNER 10/04/17 [Novolog Mix 70-30 Vial] Insulin Aspart [Novolog Flexpen See Protocol SC DINNER 10/04/17 ([place])] Levothyroxine [Synthroid] 137 mcg PO DAILY 10/04/17 Loperamide [Imodium] 2 mg PO PRN PRN 10/04/17 Magnesium Oxide 400 mg PO BID 10/04/17 Melatonin 3 mg PO QHS 10/04/17 Metformin HCl [Glucophage] 1,000 mg PO BIDCM 10/04/17 Omeprazole 20 mg PO DAILY 10/04/17 Polyethylene Glycol 3350 [Miralax] 17 gm PO DAILY 10/04/17 Polyvinyl Alcohol [Artificial 1 drop OP TID PRN 10/04/17 Tears] Risperidone 2 mg PO BID 10/04/17 Sodium Chloride [Saline Mist] 2 spray NASAL TID 10/04/17 Spironolactone 25 mg PO DAILY 10/04/17 Tramadol HCl [Ultram] 50 mg PO DAILY 10/04/17 Venlafaxine HCl [Effexor] 75 mg PO BID 10/04/17 Surgical History: total knee arthroplasty - Left Psychiatric History: Depression, Schizophrenia - Paranoid. 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 Smoking Status: Unknown if ever smoked - *Family History Maternal History Items: Unknown - unable to get family history as pt intubated and sedated Review of Systems Unable to obtain accurate/complete ROS d/t: mental retardation, schizophrenia, has no complaints.- Patient Problems: Active and Suspected Problems Metabolic encephalopathy (Acute) Hypothermia (Acute) Severe sepsis (Acute) Gram-negative pneumonia (Acute) Acute respiratory failure with hypercapnia (Acute) Hypoglycemia (Acute) Anemia (Acute) - Physical Exam General: Alert, Cooperative Lungs: Diminished - bases Cardiovascular: Regular rate, Regular Rhythm Abdomen: Bowel Sounds Present, Soft, Non Tender Vital Signs Temp Pulse Resp BP Pulse Ox 97.5 F L 70 16 129/50 H 98 10/08/17 02:53 10/08/17 07:20 10/08/17 07:20 10/08/17 02:53 10/08/17 07:20 Oxygen Flow Rate 2 Oxygen Delivery Method Nasal Cannula Weight: 113 kg Body Mass Index (BMI) 43.1 Intake and Output for Last 24 Hours 10/06/17 10/07/17 10/08/17 23:59 23:59 23:59 Intake Total 1000 / 1000 1000 / 1000 Balance 1000 / 1000 1000 / 1000 Microbiology Past 72 Hours 10/04/17 20:45 Gram Stain - Final Sputum, Induced/Lukens Respiratory Culture - Final Morganella morganii sp morgani Proteus mirabilis 10/06/17 10:35 Stool Occult Blood (CARLITA) - Final Stool Occult Blood Positive Laboratory Tests Past 24 Hrs 10/07/17 10/07/17 10/07/17 11:34 16:10 22:20 Sodium 127 L 127 L 133 L Potassium 5.7 H 5.7 H 5.0 Chloride 90 L 89 L 91 L Carbon Dioxide 31.0 36.0 H 37.0 H Anion Gap 6 2 L 5 BUN 37 H 33 H 29 H Creatinine 0.75 0.70 0.66 Estim Creat Clear Calc 63.51 68.05 72.17 Est GFR (MDRD) Af Amer 101 108 116 Est GFR (MDRD) Non-Af 83 89 96 BUN/Creatinine Ratio 49.4 H 46.9 H 43.9 H Glucose 379 H 314 H 256 H Calcium 8.8 9.0 8.5 10/08/17 05:18 Sodium 132 L Potassium 4.7 Chloride 90 L Carbon Dioxide 40.0 H Anion Gap 2 L BUN 31 H Creatinine 0.61 Estim Creat Clear Calc 78.09 Est GFR (MDRD) Af Amer 128 Est GFR (MDRD) Non-Af 106 BUN/Creatinine Ratio 51.1 H Glucose 135 H Calcium 8.6 POC Glucose 10/08/17 10/07/17 10/07/17 07:01 21:06 16:03 POC Glucose 112 H 279 H 321 H 10/07/17 11:29 POC Glucose 388 H Assessment/Plan Active and Suspected Problems Metabolic encephalopathy (Acute) Hypothermia (Acute) Severe sepsis (Acute) Gram-negative pneumonia (Acute) Acute respiratory failure with hypercapnia (Acute) Hypoglycemia (Acute) Anemia (Acute) iron deficiency anemia-heme positive stools- I do agree that performing upper and lower endoscopy this hospitalization would be optimal given her challenges of outpatient preparation and the desire to maintain her on anticoagulation due to a DVT. the patient's power of collections attorney will be contacted to obtain consent. the patient is followed by medicine service and pulmonary for her atypical pneumonia, but seems to be improving rapidly. We'll obtain a chest x-ray today just to assess underlying lung states, but clinically seems to have good air entry. Mental retardation, schizophrenia, we'll attempt bowel prep today was clear liquids making the patient nothing by mouth later this evening. Since plan for endoscopy will be approximately 8 AM.
[2017-10-08] MEDS: APIXABAN 5 MG TABLET PO ×2 (09:56→22:40)
[2017-10-08] MEDS: Carvedilol 25 MG Tablet PO ×2 (09:57→22:40)
[2017-10-08] MEDS: Venlafaxine HCl 75 MG Tablet PO ×2 (09:57→22:40)
[2017-10-08] MEDS: RisperiDONE 2 MG Tablet PO ×2 (09:57→22:40)
[2017-10-08] MEDS: cloNIDine HCl 0.2 MG Tablet PO ×2 (09:57→22:40)
[2017-10-08] MEDS: Polyethylene Glycol 3350 17 GM PACKET PO (09:58)
[2017-10-08] MEDS: Cefdinir 300 MG Capsule PO ×2 (09:58→22:39)
[2017-10-08] MEDS: 0.9% NaCl Peripheral Flush Adult/Peds IV (10:00)
[2017-10-08] MEDS: Furosemide 20 MG/2 ML VIAL IV (10:00)
[2017-10-08] MEDS: Pantoprazole Sodium 40 MG Tablet PO ×2 (10:08→22:43)
--- NOTE | 2017-10-08 10:40 | PCM.PN.HOSP ---
Patient Problems: Active and Suspected Problems Metabolic encephalopathy (Acute) Hypothermia (Acute) Severe sepsis (Acute) Gram-negative pneumonia (Acute) Acute respiratory failure with hypercapnia (Acute) Hypoglycemia (Acute) Anemia (Acute) Subjective: patient was examined. No new complaints. Remains on 2 L of oxygen. No acute events overnight. no chandni stools noted Objective: Physical exam: General: Alert, Oriented x3, Cooperative, - - morbidly obese, appears comfortable on 2L oxygen HEENT: Atraumatic, PERRLA, EOMI, Normocephalic Oral: Moist Mucosa Neck: Supple Lungs: Clear to auscultation, Normal air movement Cardiovascular: Regular rate, No murmurs Abdomen: Bowel Sounds Present, Soft, Non Tender, Non-Distended, No Hepato-splenomegaly Extremities: Edema - generalised edema Skin: No rashes, No breakdown Musculoskeletal: No Tenderness to Palpation of Joints or Extremities Lymphatic: No Cervical, Supraclavicular, or Inguinal Adenopathy Neurological: Cranial nerves II-XII grossly intact, Neuro grossly intact Psych/Mental Status: Normal Affect, Appropriate Vitals/I&O's: Vital Signs Temp Pulse Resp BP Pulse Ox 98.1 F 73 18 128/66 H 98 10/08/17 10:10 10/08/17 10:10 10/08/17 10:10 10/08/17 10:10 10/08/17 10:10 Oxygen Flow Rate 2 Oxygen Delivery Method Nasal Cannula Weight: 113 kg Body Mass Index (BMI) 43.1 Intake and Output for Last 24 Hours 10/06/17 10/07/17 10/08/17 23:59 23:59 23:59 Intake Total 1000 / 1000 1000 / 1000 30 Balance 1000 / 1000 1000 / 1000 30 Microbiology Past 72 Hours 10/04/17 20:45 Sputum, Induced/Lukens Gram Stain - Final 10/04/17 20:45 Sputum, Induced/Lukens Respiratory Culture - Final Morganella morganii sp morgani Proteus mirabilis 10/06/17 10:35 Stool Stool Occult Blood (CARLITA) - Final Occult Blood Positive Laboratory Results 10/07/17 11:29: POC Glucose 388 H 10/07/17 11:34: Sodium 127 L, Potassium 5.7 H, Chloride 90 L, Carbon Dioxide 31.0, Anion Gap 6, BUN 37 H, Creatinine 0.75, Estim Creat Clear Calc 63.51, Est GFR (MDRD) Af Amer 101, Est GFR (MDRD) Non-Af 83, BUN/Creatinine Ratio 49.4 H, Glucose 379 H, Calcium 8.8 10/07/17 16:03: POC Glucose 321 H 10/07/17 16:10: Sodium 127 L, Potassium 5.7 H, Chloride 89 L, Carbon Dioxide 36.0 H, Anion Gap 2 L, BUN 33 H, Creatinine 0.70, Estim Creat Clear Calc 68.05, Est GFR (MDRD) Af Amer 108, Est GFR (MDRD) Non-Af 89, BUN/Creatinine Ratio 46.9 H, Glucose 314 H, Calcium 9.0 10/07/17 21:06: POC Glucose 279 H 10/07/17 22:20: Sodium 133 L, Potassium 5.0, Chloride 91 L, Carbon Dioxide 37.0 H, Anion Gap 5, BUN 29 H, Creatinine 0.66, Estim Creat Clear Calc 72.17, Est GFR (MDRD) Af Amer 116, Est GFR (MDRD) Non-Af 96, BUN/Creatinine Ratio 43.9 H, Glucose 256 H, Calcium 8.5 10/08/17 05:18: Sodium 132 L, Potassium 4.7, Chloride 90 L, Carbon Dioxide 40.0 H, Anion Gap 2 L, BUN 31 H, Creatinine 0.61, Estim Creat Clear Calc 78.09, Est GFR (MDRD) Af Amer 128, Est GFR (MDRD) Non-Af 106, BUN/Creatinine Ratio 51.1 H, Glucose 135 H, Calcium 8.6 10/08/17 07:01: POC Glucose 112 H Current Medications Acetaminophen (Tylenol) 650 mg PO Q4H PRN PRN PRN Reason: TEMP > 100.5 F Last Admin: 10/05/17 21:29 Dose: 650 mg Albuterol Sulfate (Ventolin Aerosols) 2.5 mg INHALATION Q2H PRN PRN PRN Reason: SHORTNESS OF BREATH Last Admin: 10/07/17 17:20 Dose: 2.5 mg Albuterol/Ipratropium (Duoneb) 3 ml INHALATION Q6HWA.RT BIBI Last Admin: 10/08/17 07:20 Dose: 3 ml Apixaban (Eliquis) 5 mg PO BID BIBI Last Admin: 10/08/17 09:56 Dose: 5 mg Artificial Tears (Tears Naturale, Artificial Tears) 1 drop OPHTHALMIC TID PRN PRN PRN Reason: Dry Eye Last Admin: 10/07/17 09:01 Dose: 1 drop Atorvastatin Calcium (Lipitor) 40 mg PO QHS [facility] Last Admin: 10/07/17 21:14 Dose: 40 mg Calamine/Phenol (Calmoseptine Ointment) 1 applic TOPICAL TID [facility] PRN Reason: Protocol Last Admin: 10/08/17 06:56 Dose: 1 applicatio Carvedilol (Coreg) 25 mg PO BID [facility] Last Admin: 10/08/17 09:57 Dose: 25 mg Cefdinir (Omnicef [Equiv]) 300 mg PO Q12 [facility] Stop: 10/15/17 22:01 Last Admin: 10/08/17 09:58 Dose: 300 mg Clonidine (Catapres) 0.2 mg PO BID [facility] Last Admin: 10/08/17 09:57 Dose: 0.2 mg Dextrose (D50w Syringe) 0 gm IV X1 PRN; Protocol PRN Reason: Hypoglycemia Ferrous Sulfate (Ferrous Sulfate) 325 mg PO BIDCM@1200,1700 [facility] Last Admin: 10/07/17 16:14 Dose: 325 mg Furosemide (Lasix) 20 mg IV DAILY [facility] Last Admin: 10/08/17 10:00 Dose: 20 mg Glucagon () 1 mg IM .X1 PRN PRN Reason: Hypoglycemia Guaifenesin (Robitussin) 10 ml PO Q6H PRN PRN PRN Reason: COUGH Last Admin: 10/07/17 14:31 Dose: 10 ml Insulin Aspart (Novolog Flexpen (Bkc)) 0 units SC ACHS [facility] PRN Reason: Protocol Last Admin: 10/08/17 07:36 Dose: Not Given Insulin Aspart (Novolog Flexpen (Bkc)) 15 units SC TIDAC [facility] Last Admin: 10/08/17 09:47 Dose: Not Given Insulin Detemir (Levemir (Bkc)) 52 units SC , [facility] Last Admin: 10/07/17 21:12 Dose: 52 u Levothyroxine Sodium (Synthroid) 137 mcg PO DAILY@0600 [facility] Last Admin: 10/08/17 06:57 Dose: 137 mcg Magnesium Hydroxide (Milk Of Magnesia) 30 ml PO DAILY PRN PRN PRN Reason: Constipation Melatonin (Melatonin) 3 mg PO QHS [facility] Last Admin: 10/07/17 21:14 Dose: 3 mg Nystatin (Mycostatin Powder) 1 applic TOPICAL TID [facility] PRN Reason: Protocol Last Admin: 10/08/17 06:55 Dose: 1 applicatio Ondansetron HCl (Zofran) 4 mg IV Q8H PRN PRN PRN Reason: Nausea Pantoprazole Sodium (Protonix) 40 mg PO BID [facility] Last Admin: 10/08/17 10:08 Dose: 40 mg Polyethylene Glycol (Miralax) 17 gm PO DAILY [facility] Last Admin: 10/08/17 09:58 Dose: 17 gm Prednisone (Prednisone) 40 mg PO DAILY@0800 [facility] Last Admin: 10/08/17 09:46 Dose: 40 mg Risperidone (Risperdal) 2 mg PO BID [facility] Last Admin: 10/08/17 09:57 Dose: 2 mg Sodium Chloride () 5 - 30 ml IV UD PRN PRN Reason: SALINE FLUSH Last Admin: 10/08/17 10:00 Dose: 10 ml Sodium Chloride () 10 ml IV UD PRN PRN Reason: PICC FLUSH Sodium Chloride ([place] Nasal [place]) 2 spray NASAL TID PRN PRN PRN Reason: NASAL DRYNESS Last Admin: 10/07/17 05:19 Dose: 2 spray Sodium Chloride/Electrolytes (Nulytely) 4,000 ml PO X1 ONE Stop: 10/08/17 11:01 Venlafaxine HCl (Effexor) 75 mg PO BID [facility] Last Admin: 10/08/17 09:57 Dose: 75 mg Assessment/Plan Active and Suspected Problems Metabolic encephalopathy (Acute) Hypothermia (Acute) Severe sepsis (Acute) Gram-negative pneumonia (Acute) Acute respiratory failure with hypercapnia (Acute) Hypoglycemia (Acute) Anemia (Acute) 62 year old female who was admitted on 10/02/17 after being found unresponsive at her [facility]. She was intubated, managed in ICU as acute respiratory failure and severe sepsis secondary to left lobe pneumonia and hypoglycemia. 1. Severe sepsis secondary to HCAP, improved from sepsis standpoint, stable vitals, improved, on po cefdinir 2. Iron deficiency anemia, FOBT positive, on PPI, no hemodynamic instability, no chandni seen, colonoscopy planned tomorrow because of likelihood of poor follow-up and adequate preparation in the outpatient, will check HH and then CBCD in am if stable, continue on iron and PPI bid 3. Acute Respiratory failure with hypercapnia/hypoxia, s/p extubation, improved, on 2L oxygen, will continue to wean off oxygen. 4. HCAP, sputum cultures growing morganella morganii, proteus sp, urine legionella and streptococcal antigen are negative, blood cultures are negative. Day 5 of antibiotics. Will aim for 10 days total antibiotics. 5. Metabolic encephalopathy secondary to hypoglycemia, appears resolved, unclear of patient's baseline, flat affect for me over the last 2 days. 6.Type 2DM, HbA1c is 8.6, admitted with hypoglycemia, BS are better controlled today, on Levemir and regular insulin sliding scale, off metformin. 7. History of right leg DVT, on Eliquis. 8. Hyperkalemia, resolved, s/p kayexalate, K is 4.7 9. Hyponatremia, acute, improved, off HCTZ for now, will continue to monitor 10. Generalised edema likely related to hypoalbuminemia related recent illness, will check serum albumin, continue on lasix IV for now. Last 2D-ECHO showed normal EF 60% 11. Deconditioning/weakness, physical and occupational therapy consulted, will need to go for skilled rehab. Code Visit Inpatient E&M: 64382 Subs Hosp L2
--- NOTE | 2017-10-08 10:57 | PN_ITS ---
Patient Problems: Active and Suspected Problems Metabolic encephalopathy (Acute) Hypothermia (Acute) Severe sepsis (Acute) Gram-negative pneumonia (Acute) Acute respiratory failure with hypercapnia (Acute) Hypoglycemia (Acute) Anemia (Acute) Subjective: patient was examined. No new complaints. Remains on 2 L of oxygen. No acute events overnight. no chandni stools noted Objective: Physical exam: General: Alert, Oriented x3, Cooperative, - - morbidly obese, appears comfortable on 2L oxygen HEENT: Atraumatic, PERRLA, EOMI, Normocephalic Oral: Moist Mucosa Neck: Supple Lungs: Clear to auscultation, Normal air movement Cardiovascular: Regular rate, No murmurs Abdomen: Bowel Sounds Present, Soft, Non Tender, Non-Distended, No Hepato- splenomegaly Extremities: Edema - generalised edema Skin: No rashes, No breakdown Musculoskeletal: No Tenderness to Palpation of Joints or Extremities Lymphatic: No Cervical, Supraclavicular, or Inguinal Adenopathy Neurological: Cranial nerves II-XII grossly intact, Neuro grossly intact Psych/Mental Status: Normal Affect, Appropriate Vitals/I&O's: Vital Signs Temp Pulse Resp BP Pulse Ox 98.1 F 73 18 128/66 H 98 10/08/17 10:10 10/08/17 10:10 10/08/17 10:10 10/08/17 10:10 10/08/17 10:10 Oxygen Flow Rate 2 Oxygen Delivery Method Nasal Cannula Weight: 113 kg Body Mass Index (BMI) 43.1 Intake and Output for Last 24 Hours 10/06/17 10/07/17 10/08/17 23:59 23:59 23:59 Intake Total 1000 / 1000 1000 / 1000 30 Balance 1000 / 1000 1000 / 1000 30 Microbiology Past 72 Hours 10/04/17 20:45 Sputum, Induced/Lukens Gram Stain - Final 10/04/17 20:45 Sputum, Induced/Lukens Respiratory Culture - Final Morganella morganii sp morgani Proteus mirabilis 10/06/17 10:35 Stool Stool Occult Blood (CARLITA) - Final Occult Blood Positive Laboratory Results 10/07/17 11:29: POC Glucose 388 H 10/07/17 11:34: Sodium 127 L, Potassium 5.7 H, Chloride 90 L, Carbon Dioxide 31.0, Anion Gap 6, BUN 37 H, Creatinine 0.75, Estim Creat Clear Calc 63.51, Est GFR (MDRD) Af Amer 101, Est GFR (MDRD) Non-Af 83, BUN/Creatinine Ratio 49.4 H, Glucose 379 H, Calcium 8.8 10/07/17 16:03: POC Glucose 321 H 10/07/17 16:10: Sodium 127 L, Potassium 5.7 H, Chloride 89 L, Carbon Dioxide 36.0 H, Anion Gap 2 L, BUN 33 H, Creatinine 0.70, Estim Creat Clear Calc 68.05, Est GFR (MDRD) Af Amer 108, Est GFR (MDRD) Non-Af 89, BUN/Creatinine Ratio 46.9 H, Glucose 314 H, Calcium 9.0 10/07/17 21:06: POC Glucose 279 H 10/07/17 22:20: Sodium 133 L, Potassium 5.0, Chloride 91 L, Carbon Dioxide 37.0 H, Anion Gap 5, BUN 29 H, Creatinine 0.66, Estim Creat Clear Calc 72.17, Est GFR (MDRD) Af Amer 116, Est GFR (MDRD) Non-Af 96, BUN/Creatinine Ratio 43.9 H, Glucose 256 H, Calcium 8.5 10/08/17 05:18: Sodium 132 L, Potassium 4.7, Chloride 90 L, Carbon Dioxide 40.0 H, Anion Gap 2 L, BUN 31 H, Creatinine 0.61, Estim Creat Clear Calc 78.09, Est GFR (MDRD) Af Amer 128, Est GFR (MDRD) Non-Af 106, BUN/Creatinine Ratio 51.1 H, Glucose 135 H, Calcium 8.6 10/08/17 07:01: POC Glucose 112 H Current Medications Acetaminophen (Tylenol) 650 mg PO Q4H PRN PRN PRN Reason: TEMP > 100.5 F Last Admin: 10/05/17 21:29 Dose: 650 mg Albuterol Sulfate (Ventolin Aerosols) 2.5 mg INHALATION Q2H PRN PRN PRN Reason: SHORTNESS OF BREATH Last Admin: 10/07/17 17:20 Dose: 2.5 mg Albuterol/Ipratropium (Duoneb) 3 ml INHALATION Q6HWA.RT BIBI Last Admin: 10/08/17 07:20 Dose: 3 ml Apixaban (Eliquis) 5 mg PO BID BIBI Last Admin: 10/08/17 09:56 Dose: 5 mg Artificial Tears (Tears Naturale, Artificial Tears) 1 drop OPHTHALMIC TID PRN PRN PRN Reason: Dry Eye Last Admin: 10/07/17 09:01 Dose: 1 drop Atorvastatin Calcium (Lipitor) 40 mg PO QHS [facility] Last Admin: 10/07/17 21:14 Dose: 40 mg Calamine/Phenol (Calmoseptine Ointment) 1 applic TOPICAL TID [facility] PRN Reason: Protocol Last Admin: 10/08/17 06:56 Dose: 1 applicatio Carvedilol (Coreg) 25 mg PO BID [facility] Last Admin: 10/08/17 09:57 Dose: 25 mg Cefdinir (Omnicef [Equiv]) 300 mg PO Q12 [facility] Stop: 10/15/17 22:01 Last Admin: 10/08/17 09:58 Dose: 300 mg Clonidine (Catapres) 0.2 mg PO BID [facility] Last Admin: 10/08/17 09:57 Dose: 0.2 mg Dextrose (D50w Syringe) 0 gm IV X1 PRN; Protocol PRN Reason: Hypoglycemia Ferrous Sulfate (Ferrous Sulfate) 325 mg PO BIDCM@1200,1700 [facility] Last Admin: 10/07/17 16:14 Dose: 325 mg Furosemide (Lasix) 20 mg IV DAILY [facility] Last Admin: 10/08/17 10:00 Dose: 20 mg Glucagon () 1 mg IM .X1 PRN PRN Reason: Hypoglycemia Guaifenesin (Robitussin) 10 ml PO Q6H PRN PRN PRN Reason: COUGH Last Admin: 10/07/17 14:31 Dose: 10 ml Insulin Aspart (Novolog Flexpen (Bkc)) 0 units SC ACHS [facility] PRN Reason: Protocol Last Admin: 10/08/17 07:36 Dose: Not Given Insulin Aspart (Novolog Flexpen (Bkc)) 15 units SC TIDAC [facility] Last Admin: 10/08/17 09:47 Dose: Not Given Insulin Detemir (Levemir (Bkc)) 52 units SC , [facility] Last Admin: 10/07/17 21:12 Dose: 52 u Levothyroxine Sodium (Synthroid) 137 mcg PO DAILY@0600 [facility] Last Admin: 10/08/17 06:57 Dose: 137 mcg Magnesium Hydroxide (Milk Of Magnesia) 30 ml PO DAILY PRN PRN PRN Reason: Constipation Melatonin (Melatonin) 3 mg PO QHS [facility] Last Admin: 10/07/17 21:14 Dose: 3 mg Nystatin (Mycostatin Powder) 1 applic TOPICAL TID [facility] PRN Reason: Protocol Last Admin: 10/08/17 06:55 Dose: 1 applicatio Ondansetron HCl (Zofran) 4 mg IV Q8H PRN PRN PRN Reason: Nausea Pantoprazole Sodium (Protonix) 40 mg PO BID [facility] Last Admin: 10/08/17 10:08 Dose: 40 mg Polyethylene Glycol (Miralax) 17 gm PO DAILY [facility] Last Admin: 10/08/17 09:58 Dose: 17 gm Prednisone (Prednisone) 40 mg PO DAILY@0800 [facility] Last Admin: 10/08/17 09:46 Dose: 40 mg Risperidone (Risperdal) 2 mg PO BID [facility] Last Admin: 10/08/17 09:57 Dose: 2 mg Sodium Chloride () 5 - 30 ml IV UD PRN PRN Reason: SALINE FLUSH Last Admin: 10/08/17 10:00 Dose: 10 ml Sodium Chloride () 10 ml IV UD PRN PRN Reason: PICC FLUSH Sodium Chloride ([place] Nasal [place]) 2 spray NASAL TID PRN PRN PRN Reason: NASAL DRYNESS Last Admin: 10/07/17 05:19 Dose: 2 spray Sodium Chloride/Electrolytes (Nulytely) 4,000 ml PO X1 ONE Stop: 10/08/17 11:01 Venlafaxine HCl (Effexor) 75 mg PO BID [facility] Last Admin: 10/08/17 09:57 Dose: 75 mg Assessment/Plan Active and Suspected Problems Metabolic encephalopathy (Acute) Hypothermia (Acute) Severe sepsis (Acute) Gram-negative pneumonia (Acute) Acute respiratory failure with hypercapnia (Acute) Hypoglycemia (Acute) Anemia (Acute) 62 year old female who was admitted on 10/02/17 after being found unresponsive at her [facility]. She was intubated, managed in ICU as acute respiratory failure and severe sepsis secondary to left lobe pneumonia and hypoglycemia. 1. Severe sepsis secondary to HCAP, improved from sepsis standpoint, stable vitals, improved, on po cefdinir 2. Iron deficiency anemia, FOBT positive, on PPI, no hemodynamic instability, no chandni seen, colonoscopy planned tomorrow because of likelihood of poor follow-up and adequate preparation in the outpatient, will check HH and then CBCD in am if stable, continue on iron and PPI bid 3. Acute Respiratory failure with hypercapnia/hypoxia, s/p extubation, improved , on 2L oxygen, will continue to wean off oxygen. 4. HCAP, sputum cultures growing morganella morganii, proteus sp, urine legionella and streptococcal antigen are negative, blood cultures are negative. Day 5 of antibiotics. Will aim for 10 days total antibiotics. 5. Metabolic encephalopathy secondary to hypoglycemia, appears resolved, unclear of patient's baseline, flat affect for me over the last 2 days. 6.Type 2DM, HbA1c is 8.6, admitted with hypoglycemia, BS are better controlled today, on Levemir and regular insulin sliding scale, off metformin. 7. History of right leg DVT, on Eliquis. 8. Hyperkalemia, resolved, s/p kayexalate, K is 4.7 9. Hyponatremia, acute, improved, off HCTZ for now, will continue to monitor 10. Generalised edema likely related to hypoalbuminemia related recent illness, will check serum albumin, continue on lasix IV for now. Last 2D-ECHO showed normal EF 60% 11. Deconditioning/weakness, physical and occupational therapy consulted, will need to go for skilled rehab. Code Visit Inpatient E&M: 04311 Subs Hosp L2
--- NOTE | 2017-10-08 11:21 | NURSING ---
HEARD from [facility] for help. This nurse found pt sitting on the floor in front of her chair. Lindsay from [facility] was by her side. Lindsay and tell this nurse she did okay walking but then got weak and there was no holding her up and the chair even though it was locked, kept moving. Vaishali and states that they lowered her to the floor. Pt did not hit her head or any other body parts. When approached, she was starring and not talking. Initially, nursing thought she may have had a seizure. This nurse performed neuro checks, see intervention. Dr. Coy called and informed of what happened. She came to see pt. Dr. Coy does not think after assessing pt at the bedside that pt had a seizure. Wants nursing to keep monitoring her and keep her on telemonitor. Pt was incont of both Bowel and bladder. Assisted x5 back to bed. Marita Almaguer RN changing PICC dressing at this time since edges of dressing peeling off/not sticking.
[2017-10-08 11:26] LABS: Albumin, Serum 2.6 g/dL (3.2-5.0)
[2017-10-08 12:11] LABS: Bedside Glucose 134 mg/dL (70-110)
[2017-10-08 12:18] LABS: Hematocrit 26.7 % (37-47); Hemoglobin 7.6 g/dl (12.0-15.0)
[2017-10-08] MEDS: Ferrous Sulfate 325 MG Tablet PO ×2 (13:15→17:04)
[2017-10-08] MEDS: Electrolyte Solution/Peg's 4000 ML PO (13:17)
[2017-10-08 14:36] LABS: Bedside Glucose 109 mg/dL (70-110)
[2017-10-08 17:11] LABS: Bedside Glucose 99 mg/dL (70-110)
--- NOTE | 2017-10-08 20:24 | NURSING ---
Pt was asked if okay to give her Son Bill info (Bill is in the room). States yes it is Okay to give Bill info.
[2017-10-08] MEDS: Atorvastatin Calcium 40 MG Tablet PO (22:40)
[2017-10-08] MEDS: MELATONIN 3 MG TABLET PO (22:40)
[2017-10-08 22:56] LABS: Bedside Glucose 61 mg/dL (70-110)
[2017-10-08 23:37] LABS: Bedside Glucose 78 mg/dL (70-110)
[2017-10-09] VITALS (15 sets, daily range): BP systolic 122–156; BP diastolic 47–66; PULSE 66–83; RESP 16–69; TEMP 36.3–36.5; O2SAT 16–100
--- NOTE | 2017-10-09 | IMM_PTH ---
PATIENT: KENYON FRANZ LOC: MS3 U#:[id number] AGE/SX: 62/F ROOM: MA322 RE10/04/[address]: Dr. Rolan Petersen MD : 1955 BED: 1 DIS: 10/11/2017 SPEC #: [id number] RECD: 10/10/17 12:47 STATUS: SOUT REQ #: [id number] JOSESITO: 10/09/17 00:[address]: Bo Lagunas DEPT: IMMUNOHISTOCHEMISTRY RECD BY: Jo Torres ENTERED: 10/10/17 12:47 SP TYPE: IMMUNO OTHR DR: MD Dr. Rahul Mariscal DO Dr. Liza D Talampas, MD Dr. Prakash Chand, MD Liza D Talampas, MD Tissues: Stomach, NOS Procedures: H Pylori (initial) Comments: @ Ordering doctor for H.PYLORI edited from to DR.RGUTTM Orellana by DANETTE at 10/10/17 1258 @ Submitting doctor edited from to DR.RGUTTM Orellana by DANETTE at 10/10/17 1258 PHYSICIAN & [place] [id number] SPECIMEN INFORMATION: Tissue Source: Antrum biopsy Clinical Info: Compa Specimen Number: [id number] CPT code: 88153 METHODOLOGY: Deparaffinized sections of prefer/formalin-fixed tissue or PAP/DQ stained slides are incubated with monoclonal/polyclonal antibodies/oligonucleotide probes. Localization is made via biotin free immunoperoxidase method. Appropriate controls are performed and reacted as expected. Results on target cell population are indicated in the following table: RESULTS: ANTIBODY / CLONE RESULT H Pylori (polyclonal) negative These tests were developed and their performance characteristics determined by [facility]. They may not have been cleared or approved by the U.S. Food and Drug Administration. The FDA has determined that such clearance or approval is not necessary. INTERPRETATION: Antrum biopsy: Negative for Helicobacter pylori organisms. AM:diomedes 10/11/17
--- NOTE | 2017-10-09 | GASB_PTH ---
PATIENT: KENYON FRANZ LOC: MS3 U#:[id number] AGE/SX: 62/F ROOM: TN322 RE10/04/[address]: Dr. Rolan Petersen MD : 1955 BED: 1 DIS: 10/11/2017 SPEC #: [id number] RECD: 10/09/17 14:36 STATUS: BIJAN REQ #: [id number] JOSESITO: 10/09/17 00:[address]: Bo Lagunas DEPT: SURGICAL PATHOLOGY RECD BY: Tim Serna ENTERED: 10/09/17 14:36 SP TYPE: Gastric Bx OTHR DR: MD Dr. Rahul Mariscal DO Dr. Liza D Talampas, MD Dr. Prakash Chand, MD Liza D Talampas, MD Tissues: Gastric mucous membrane Procedures: Surgery Specimen Level IV Comments: @ Ordering doctor for SUIV edited from to DR.RGUTTM Orellana by DANETTE at 10/10/17 0749 @ Submitting doctor edited from to DR.RGUTTM Orellana by DANETTE at 10/10/17 0749 HEADER OPERATION: EGD with biopsy PRE-OP DIAGNOSIS: Anemia TISSUE SUBMITTED: Antrum biopsy MICROSCOPIC DIAGNOSIS Gastric antrum, biopsy: Gastritis. AM:diomedes 10/10/17 COMMENT The results of immunohistochemistry for Helicobacter pylori will be reported separately ([id number]). MICROSCOPIC DESCRIPTION Slides are reviewed. Sections show small collections and groups of plasma cells in the mucosa. Active inflammation is not present. These findings are consistent with mild chronic gastritis. GROSS DESCRIPTION Received in fixative is one container labeled with the patient's name and designated antrum biopsy. The specimen consists of one irregular fragment of light young soft tissue that measures 0.3 x 0.2 x .1 cm. The specimen is totally submitted in one cassette. / AM:diomedes 10/09/17 TC:3 CPT: 97901
[2017-10-09 01:16] LABS: Bedside Glucose 75 mg/dL (70-110)
[2017-10-09 06:17] LABS: International Normalized Ratio 1.2; Prothrombin Time (Protime)PT. 14.8 SECONDS (11.7-14.9)
[2017-10-09 06:21] LABS: Anion Gap 4 (5-15); BUN 25 mg/dL (7-18); BUN/Creat Ratio 54.3 RATIO (10-20); Calcium,Total 8.8 mg/dL (8.5-10.1); Chloride 93 mmol/L (98-107); Creatinine, Serum 0.46 mg/dL (0.55-1.02); EST Glomerular Filtration Rate 146 mL/min (>60); Est Glom Filt Rate - Afr Amer 176 mL/min (>60); Estimated Creatinine Clearance 103.55 ml/min; Glucose 51 mg/dL (74-106); Potassium 4.7 mmol/L (3.5-5.1); Sodium Level 133 mmol/L (136-145)
[2017-10-09 06:23] LABS: Absolute Neutrophil Count 4.5 X10^3/uL (2.0-7.7); Eosinophil# 0.14 X10^3/uL; Eosinophils% 1.8 % (0-5); Hemoglobin 8.2 g/dl (12.0-15.0); Lymphocyte % 32.1 % (19-41); Mean Corp Hgb Conc 30.4 g/gl (32-36); Mean Corpuscular Hgb 26.7 pg (27.0-32.0); Mean Corpuscular Volume 87.9 fL (81-99); Monocyte# 0.65 X10^3/uL; Monocyte% 8.4 % (0-10); Neutrophil # 4.48 X10^3/uL (2.7-7.7); Neutrophil % 57.6 % (47-70); Platelet Count 233 K/mm3 (150-450); Red Blood Count 3.07 M/mm3 (4.2-5.4); White Blood Count 7.8 K/mm3 (4.4-11.0)
[2017-10-09 06:31] LABS: Bedside Glucose 51 mg/dL (70-110)
[2017-10-09] MEDS: Dextrose 50%-Water 25 GM/50 ML DISP.SYRIN IV (06:31)
[2017-10-09 06:32] LABS: POSITIVE COUNT NO; POSITIVE DIFFERENTIAL NO; POSITIVE MORPHOLOGY NO
[2017-10-09] MEDS: Nystatin Powder 15gm Bottle 1 APPLIC TOPICAL ×3 (06:58→21:33)
[2017-10-09] MEDS: Ipratropium/Albuterol Sulfate 3 ML AMPUL.NEB INHALATION ×2 (06:58→19:04)
[2017-10-09 07:01] LABS: Bedside Glucose 95 mg/dL (70-110)
--- NOTE | 2017-10-09 07:27 | NURSING ---
Called report to AC for patients EGD and colonoscopy. PT left floor.
--- NOTE | 2017-10-09 09:50 | PCM.OPRPT ---
Problem List (1) Anemia Status: Acute (2) Acute respiratory failure with hypercapnia Status: Acute (3) Gram-negative pneumonia Status: Acute (4) Severe sepsis Status: Acute (5) Mental retardation Status: Chronic Report of Operation Date of Procedure: 10/09/17 Pre-Operative Diagnosis: heme positive stools Post-Operative Diagnosis: gastritis, otherwise normal upper endoscopy, poor prep, normal visualized colon Surgery/Procedure Performed:: EGD with biopsy, Colonoscopy head end desizing machine operator: None Type of Anesthesia:: MAC Anesthesiologist: Jed Torres ASA3 Specimen's removed: gastric antral Description of Procedure: The patient was brought to the endoscopy suite. Sign in was performed verifying patient, site, planned procedure, critical nursing information, the patient was monitored with cardiac, pulse oximetric, and blood pressure monitoring devices. Monitored anesthetic care was provided for sedation. Following IV sedation and after the oropharynx was sprayed with Cetacaine spray, a video gastroscope was inserted in the oropharynx and advanced down the esophagus without difficulty. The scope was advanced through the stomach, through the pylorus through the duodenum to the proximal jejunum. the jejunum and duodenum were unremarkable. Endoscope was withdrawn, there was irritation in the antrum and body of the stomach. Biopsies were obtained for H. pylori and pathology. the scope was retroflexed. The GE junction appeared unremarkable. The esophagus was unremarkable. The patient was positioned for colonoscopy. A digital rectal exam was performed which revealed liquid stool in the vault The video colonoscope was inserted and advanced to the the area just above the ileocecal valve in thececum as verified by the ileocecal valve and palpation. the scope was withdrawn, there was liquid and semisolid stool present, but visually there were no gross abnormalities in the entire colon. The scope was retroflexed and there were no anal abnormalities. The patient tolerated the procedure well and was brought to recovery in stable condition
[2017-10-09] MEDS: Ferrous Sulfate 325 MG Tablet PO ×2 (10:45→16:25)
[2017-10-09] MEDS: Cefdinir 300 MG Capsule PO ×2 (10:49→21:35)
[2017-10-09] MEDS: Venlafaxine HCl 75 MG Tablet PO ×2 (10:50→21:35)
[2017-10-09] MEDS: APIXABAN 5 MG TABLET PO ×2 (10:50→21:35)
[2017-10-09] MEDS: RisperiDONE 2 MG Tablet PO ×2 (10:50→21:35)
[2017-10-09] MEDS: Carvedilol 25 MG Tablet PO ×2 (10:51→21:35)
[2017-10-09] MEDS: cloNIDine HCl 0.2 MG Tablet PO ×2 (10:51→21:35)
[2017-10-09] MEDS: 0.9% NaCl Peripheral Flush Adult/Peds IV ×4 (10:51→21:36)
[2017-10-09] MEDS: Levothyroxine 137 MCG Tablet PO (10:52)
[2017-10-09] MEDS: Pantoprazole Sodium 40 MG Tablet PO ×2 (10:55→21:35)
[2017-10-09] MEDS: Furosemide 20 MG/2 ML VIAL IV (10:56)
[2017-10-09 11:21] LABS: Bedside Glucose 72 mg/dL (70-110)
[2017-10-09 11:21] LABS: Bedside Glucose 64 mg/dL (70-110)
--- NOTE | 2017-10-09 11:46 | CASEMGMT ---
Social Work Note Faxed updated PT/OT notes to SNF to assist with obtaining a new pre-cert. SW to continue to follow and assist with discharge planning. Gill Pizarro, TRAFFIC ROUTING ENGINEER, PIPE PRODUCTION WORKER
[2017-10-09] MEDS: Menthol/Lanolin/Calamine/Znox 113 GM Tube 1 APPLIC TOPICAL ×2 (13:38→21:32)
[2017-10-09 13:46] LABS: Bedside Glucose 126 mg/dL (70-110)
--- NOTE | 2017-10-09 13:55 | PCM.PN.HOSP ---
Patient Problems: Active and Suspected Problems Metabolic encephalopathy (Acute) Hypothermia (Acute) Severe sepsis (Acute) Gram-negative pneumonia (Acute) Acute respiratory failure with hypercapnia (Acute) Hypoglycemia (Acute) Anemia (Acute) Subjective: Patient returned from EGD and colonoscopy. Patient has baseline MRDD but seemed to be more lethargic after colon prep and sedation. Blood sugar was also running low but after our use and lunch it came up 126 mg percent. Vitals/I&O's: Vital Signs Temp Pulse Resp BP Pulse Ox 97.6 F L 67 18 131/47 H 96 10/09/17 10:55 10/09/17 11:50 10/09/17 10:55 10/09/17 10:55 10/09/17 10:55 Oxygen Flow Rate 2 Oxygen Delivery Method Nasal Cannula Weight: 250 lb 7.122 oz Body Mass Index (BMI) 43.1 Intake and Output for Last 24 Hours 10/07/17 10/08/17 10/09/17 23:59 23:59 23:59 Intake Total 1000 / 1000 1470 / 1470 3780 / 3780 Balance 1000 / 1000 1470 / 1470 3780 / 3780 General: Lethargic, - - Sleepy HEENT: Atraumatic, PERRLA, EOMI, Normocephalic Oral: Moist Mucosa Neck: Supple, No JVD, Negative Carotid Bruits Lungs: No rhonchi, No wheeze, Diminished Cardiovascular: Regular rate, Regular Rhythm, Normal S1, Normal S2, No murmurs Abdomen: Bowel Sounds Present, Soft, Non Tender, Non-Distended Extremities: Edema Skin: No rashes, No breakdown Musculoskeletal: Arthritic Changes Microbiology Past 72 Hours 10/04/17 20:45 Sputum, Induced/Lukens Gram Stain - Final 10/04/17 20:45 Sputum, Induced/Lukens Respiratory Culture - Final Morganella morganii sp morgani Proteus mirabilis 10/06/17 10:35 Stool Stool Occult Blood (CARLITA) - Final Occult Blood Positive Laboratory Results 10/08/17 14:24: POC Glucose 109 10/08/17 16:58: POC Glucose 99 10/08/17 22:45: POC Glucose 61 L 10/08/17 23:30: POC Glucose 78 10/09/17 00:29: POC Glucose 75 10/09/17 05:32: WBC 7.8, RBC 3.07 L, Hgb 8.2 L, Hct 27.0 L, MCV 87.9, MCH 26.7 L, MCHC 30.4 L, RDW 18.0 H, RDW Differential 55.0 H, Plt Count 233, MPV 10.0, Immature Gran % (Auto) 0.100, Neut % (Auto) 57.6, Lymph % (Auto) 32.1, Roberts % (Auto) 8.4, Eos % (Auto) 1.8, Baso % (Auto) 0.0, Absolute Neuts (auto) 4.5, Absolute Lymphs (auto) 2.50, Total Counted Not Reportable 10/09/17 05:32: Sodium 133 L, Potassium 4.7, Chloride 93 L, Carbon Dioxide 36.0 H, Anion Gap 4 L, BUN 25 H, Creatinine 0.46 L, Estim Creat Clear Calc 103.55, Est GFR (MDRD) Af Amer 176, Est GFR (MDRD) Non-Af 146, BUN/Creatinine Ratio 54.3 H, Glucose 51 L, Calcium 8.8 10/09/17 05:32: PT 14.8, INR 1.2 10/09/17 06:26: POC Glucose 51 L 10/09/17 06:49: POC Glucose 95 10/09/17 10:41: POC Glucose 64 L 10/09/17 11:05: POC Glucose 72 10/09/17 13:37: POC Glucose 126 H Current Medications Acetaminophen (Tylenol) 650 mg PO Q4H PRN PRN PRN Reason: TEMP > 100.5 F Last Admin: 10/05/17 21:29 Dose: 650 mg Albuterol Sulfate (Ventolin Aerosols) 2.5 mg INHALATION Q2H PRN PRN PRN Reason: SHORTNESS OF BREATH Last Admin: 10/07/17 17:20 Dose: 2.5 mg Albuterol/Ipratropium (Duoneb) 3 ml INHALATION Q6HWA.RT BIBI Last Admin: 10/09/17 13:00 Dose: Not Given Apixaban (Eliquis) 5 mg PO BID BIBI Last Admin: 10/09/17 10:50 Dose: 5 mg Artificial Tears (Tears Naturale, Artificial Tears) 1 drop OPHTHALMIC TID PRN PRN PRN Reason: Dry Eye Last Admin: 10/09/17 10:45 Dose: 1 drop Atorvastatin Calcium (Lipitor) 40 mg PO QHS [facility] Last Admin: 10/08/17 22:40 Dose: 40 mg Calamine/Phenol (Calmoseptine Ointment) 1 applic TOPICAL TID [facility] PRN Reason: Protocol Last Admin: 10/09/17 13:38 Dose: 1 applicatio Carvedilol (Coreg) 25 mg PO BID [facility] Last Admin: 10/09/17 10:51 Dose: 25 mg Cefdinir (Omnicef [Equiv]) 300 mg PO Q12 [facility] Stop: 10/15/17 22:01 Last Admin: 10/09/17 10:49 Dose: 300 mg Clonidine (Catapres) 0.2 mg PO BID [facility] Last Admin: 10/09/17 10:51 Dose: 0.2 mg Dextrose (D50w Syringe) 0 gm IV X1 PRN; Protocol PRN Reason: Hypoglycemia Last Admin: 10/09/17 06:31 Dose: 12.5 gm Ferrous Sulfate (Ferrous Sulfate) 325 mg PO BIDCM@1200,1700 [facility] Last Admin: 10/09/17 10:45 Dose: 325 mg Glucagon () 1 mg IM .X1 PRN PRN Reason: Hypoglycemia Guaifenesin (Robitussin) 10 ml PO Q6H PRN PRN PRN Reason: COUGH Last Admin: 10/07/17 14:31 Dose: 10 ml Dextrose/Sodium Chloride () 1,000 mls @ 100 mls/hr IV .Q10H [facility] Insulin Aspart (Novolog Flexpen (Bkc)) 0 units SC ACHS [facility] PRN Reason: Protocol Levothyroxine Sodium (Synthroid) 137 mcg PO DAILY@0600 [facility] Last Admin: 10/09/17 10:52 Dose: 137 mcg Magnesium Hydroxide (Milk Of Magnesia) 30 ml PO DAILY PRN PRN PRN Reason: Constipation Melatonin (Melatonin) 3 mg PO QHS [facility] Last Admin: 10/08/17 22:40 Dose: 3 mg Nystatin (Mycostatin Powder) 1 applic TOPICAL TID [facility] PRN Reason: Protocol Last Admin: 10/09/17 13:38 Dose: 1 applicatio Ondansetron HCl (Zofran) 4 mg IV Q8H PRN PRN PRN Reason: Nausea Pantoprazole Sodium (Protonix) 40 mg PO BID [facility] Last Admin: 10/09/17 10:55 Dose: 40 mg Polyethylene Glycol (Miralax) 17 gm PO DAILY [facility] Last Admin: 10/09/17 10:50 Dose: Not Given Prednisone (Prednisone) 40 mg PO DAILY@0800 [facility] Last Admin: 10/09/17 10:50 Dose: 40 mg Risperidone (Risperdal) 2 mg PO BID [facility] Last Admin: 10/09/17 10:50 Dose: 2 mg Sodium Chloride () 5 - 30 ml IV UD PRN PRN Reason: SALINE FLUSH Last Admin: 10/09/17 10:51 Dose: 10 ml Sodium Chloride () 10 ml IV UD PRN PRN Reason: PICC FLUSH Sodium Chloride (Power Nasal [place]) 2 spray NASAL TID PRN PRN PRN Reason: NASAL DRYNESS Last Admin: 10/07/17 05:19 Dose: 2 spray Venlafaxine HCl (Effexor) 75 mg PO BID [facility] Last Admin: 10/09/17 10:50 Dose: 75 mg Assessment/Plan Active and Suspected Problems Metabolic encephalopathy (Acute) Hypothermia (Acute) Severe sepsis (Acute) Gram-negative pneumonia (Acute) Acute respiratory failure with hypercapnia (Acute) Hypoglycemia (Acute) Anemia (Acute) This is a 62 year old female who was admitted on 10/02/17 after being [facility] un[facility] at her [facility]. She was intubated, managed in ICU as acute respiratory failure and severe sepsis secondary to left lobe pneumonia and hypoglycemia. 1. Severe sepsis secondary to HCAP, improved from sepsis standpoint, stable vitals, improved, on po cefdinir. 2. Iron deficiency anemia, FOBT positive, on PPI, no hemodynamic instability, no chandni seen. Patient had EGD and colonoscopy on October 09, 2017 and showed gastritis otherwise normal upper endoscopy. Colonoscopypoor prep but normal visualized colon. 3. Acute Respiratory failure with hypercapnia/hypoxia, s/p extubation, improved, on 2L oxygen, will continue to wean off oxygen. Patient still has diminished breath sound on lower lungs most probably due to obesity hypoventilation syndrome. 4. HCAP, sputum cultures growing morganella morganii, proteus sp, urine legionella and streptococcal antigen are negative, blood cultures are negative. Day 6 of antibiotics. Plan for 10 days total antibiotics. 5. Metabolic encephalopathy secondary to hypoglycemia, appears resolved, unclear of patient's baseline, flat affect for me over the last 2 days. Patient also has history of MRDD. At this point of time, it is unclear of baseline. 6.Type 2DM, HbA1c is 8.6, admitted with hypoglycemia, BS are better controlled today. His schedule short acting and Levemir insulin discontinued. On sliding scale insulin. Continue Accu-Cheks. 7. History of right leg DVT, on Eliquis. 8. Hyperkalemia, resolved, s/p kayexalate, K is 4.7 9. Hyponatremia, acute, improved, off HCTZ for now, will continue to monitor 10. Generalised edema likely related to hypoalbuminemia related recent illness, will check serum albumin, continue on lasix IV for now. Last 2D-ECHO showed normal EF 60% 11. Deconditioning/weakness, physical and occupational therapy consulted, will need to go for skilled rehab. Microbiology Past 72 Hours 10/04/17 00:55 Blood Culture (Wb) - Anticubital Right Blood Culture - Final No growth in 5 days. 10/04/17 01:00 Blood Culture (Wb) - Left Hand Blood Culture - Final No growth in 5 days. 10/04/17 20:45 Sputum, Induced/Lukens Gram Stain - Final 10/04/17 20:45 Sputum, Induced/Lukens Respiratory Culture - Final Morganella morganii sp morgani Proteus mirabilis 10/06/17 10:35 Stool Stool Occult Blood (CARLITA) - Final Occult Blood Positive Laboratory Results 10/08/17 14:24: POC Glucose 109 10/08/17 16:58: POC Glucose 99 10/08/17 22:45: POC Glucose 61 L 10/08/17 23:30: POC Glucose 78 10/09/17 00:29: POC Glucose 75 10/09/17 05:32: WBC 7.8, RBC 3.07 L, Hgb 8.2 L, Hct 27.0 L, MCV 87.9, MCH 26.7 L, MCHC 30.4 L, RDW 18.0 H, RDW Differential 55.0 H, Plt Count 233, MPV 10.0, Immature Gran % (Auto) 0.100, Neut % (Auto) 57.6, Lymph % (Auto) 32.1, Roberts % (Auto) 8.4, Eos % (Auto) 1.8, Baso % (Auto) 0.0, Absolute Neuts (auto) 4.5, Absolute Lymphs (auto) 2.50, Total Counted Not Reportable 10/09/17 05:32: Sodium 133 L, Potassium 4.7, Chloride 93 L, Carbon Dioxide 36.0 H, Anion Gap 4 L, BUN 25 H, Creatinine 0.46 L, Estim Creat Clear Calc 103.55, Est GFR (MDRD) Af Amer 176, Est GFR (MDRD) Non-Af 146, BUN/Creatinine Ratio 54.3 H, Glucose 51 L, Calcium 8.8 10/09/17 05:32: PT 14.8, INR 1.2 10/09/17 06:26: POC Glucose 51 L 10/09/17 06:49: POC Glucose 95 10/09/17 10:41: POC Glucose 64 L 10/09/17 11:05: POC Glucose 72 10/09/17 13:37: POC Glucose 126 H Clinical Impression(s) from Imaging Studies Brain CT 10/04/17 00:45 IMPRESSION: Chronic involutional changes of the brain. No acute intracranial process. Chest X-Ray 10/08/17 09:27 IMPRESSION: Removal of endotracheal and NG tube. Stable right subclavian catheter. Findings compatible with interstitial edema/congestive failure with effusions. Code Visit Inpatient E&M: 82407 [facility] Hosp L3
--- NOTE | 2017-10-09 14:04 | PN_ITS ---
Patient Problems: Active and Suspected Problems Metabolic encephalopathy (Acute) Hypothermia (Acute) Severe sepsis (Acute) Gram-negative pneumonia (Acute) Acute respiratory failure with hypercapnia (Acute) Hypoglycemia (Acute) Anemia (Acute) Subjective: Patient returned from EGD and colonoscopy. Patient has baseline MRDD but seemed to be more lethargic after colon prep and sedation. Blood sugar was also running low but after our use and lunch it came up 126 mg percent. Vitals/I&O's: Vital Signs Temp Pulse Resp BP Pulse Ox 97.6 F L 67 18 131/47 H 96 10/09/17 10:55 10/09/17 11:50 10/09/17 10:55 10/09/17 10:55 10/09/17 10:55 Oxygen Flow Rate 2 Oxygen Delivery Method Nasal Cannula Weight: 250 lb 7.122 oz Body Mass Index (BMI) 43.1 Intake and Output for Last 24 Hours 10/07/17 10/08/17 10/09/17 23:59 23:59 23:59 Intake Total 1000 / 1000 1470 / 1470 3780 / 3780 Balance 1000 / 1000 1470 / 1470 3780 / 3780 General: Lethargic, - - Sleepy HEENT: Atraumatic, PERRLA, EOMI, Normocephalic Oral: Moist Mucosa Neck: Supple, No JVD, Negative Carotid Bruits Lungs: No rhonchi, No wheeze, Diminished Cardiovascular: Regular rate, Regular Rhythm, Normal S1, Normal S2, No murmurs Abdomen: Bowel Sounds Present, Soft, Non Tender, Non-Distended Extremities: Edema Skin: No rashes, No breakdown Musculoskeletal: Arthritic Changes Microbiology Past 72 Hours 10/04/17 20:45 Sputum, Induced/Lukens Gram Stain - Final 10/04/17 20:45 Sputum, Induced/Lukens Respiratory Culture - Final Morganella morganii sp morgani Proteus mirabilis 10/06/17 10:35 Stool Stool Occult Blood (CARLITA) - Final Occult Blood Positive Laboratory Results 10/08/17 14:24: POC Glucose 109 10/08/17 16:58: POC Glucose 99 10/08/17 22:45: POC Glucose 61 L 10/08/17 23:30: POC Glucose 78 10/09/17 00:29: POC Glucose 75 10/09/17 05:32: WBC 7.8, RBC 3.07 L, Hgb 8.2 L, Hct 27.0 L, MCV 87.9, MCH 26.7 L , MCHC 30.4 L, RDW 18.0 H, RDW Differential 55.0 H, Plt Count 233, MPV 10.0, Immature Gran % (Auto) 0.100, Neut % (Auto) 57.6, Lymph % (Auto) 32.1, [place] % ( Auto) 8.4, Eos % (Auto) 1.8, Baso % (Auto) 0.0, Absolute Neuts (auto) 4.5, Absolute Lymphs (auto) 2.50, Total Counted Not Reportable 10/09/17 05:32: Sodium 133 L, Potassium 4.7, Chloride 93 L, Carbon Dioxide 36.0 H, Anion Gap 4 L, BUN 25 H, Creatinine 0.46 L, Estim Creat Clear Calc 103.55, Est GFR (MDRD) Af Amer 176, Est GFR (MDRD) Non-Af 146, BUN/Creatinine Ratio 54.3 H, Glucose 51 L, Calcium 8.8 10/09/17 05:32: PT 14.8, INR 1.2 10/09/17 06:26: POC Glucose 51 L 10/09/17 06:49: POC Glucose 95 10/09/17 10:41: POC Glucose 64 L 10/09/17 11:05: POC Glucose 72 10/09/17 13:37: POC Glucose 126 H Current Medications Acetaminophen (Tylenol) 650 mg PO Q4H PRN PRN PRN Reason: TEMP > 100.5 F Last Admin: 10/05/17 21:29 Dose: 650 mg Albuterol Sulfate (Ventolin Aerosols) 2.5 mg INHALATION Q2H PRN PRN PRN Reason: SHORTNESS OF BREATH Last Admin: 10/07/17 17:20 Dose: 2.5 mg Albuterol/Ipratropium (Duoneb) 3 ml INHALATION Q6HWA.RT BIBI Last Admin: 10/09/17 13:00 Dose: Not Given Apixaban (Eliquis) 5 mg PO BID [facility]IBI Last Admin: 10/09/17 10:50 Dose: 5 mg Artificial Tears (Tears Naturale, Artificial Tears) 1 drop OPHTHALMIC TID PRN PRN PRN Reason: Dry Eye Last Admin: 10/09/17 10:45 Dose: 1 drop Atorvastatin Calcium (Lipitor) 40 mg PO QHS [facility] Last Admin: 10/08/17 22:40 Dose: 40 mg Calamine/Phenol (Calmoseptine Ointment) 1 applic TOPICAL TID [facility] PRN Reason: Protocol Last Admin: 10/09/17 13:38 Dose: 1 applicatio Carvedilol (Coreg) 25 mg PO BID [facility] Last Admin: 10/09/17 10:51 Dose: 25 mg Cefdinir (Omnicef [Equiv]) 300 mg PO Q12 [facility] Stop: 10/15/17 22:01 Last Admin: 10/09/17 10:49 Dose: 300 mg Clonidine (Catapres) 0.2 mg PO BID [facility] Last Admin: 10/09/17 10:51 Dose: 0.2 mg Dextrose (D50w Syringe) 0 gm IV X1 PRN; Protocol PRN Reason: Hypoglycemia Last Admin: 10/09/17 06:31 Dose: 12.5 gm Ferrous Sulfate (Ferrous Sulfate) 325 mg PO BIDCM@1200,1700 [facility] Last Admin: 10/09/17 10:45 Dose: 325 mg Glucagon () 1 mg IM .X1 PRN PRN Reason: Hypoglycemia Guaifenesin (Robitussin) 10 ml PO Q6H PRN PRN PRN Reason: COUGH Last Admin: 10/07/17 14:31 Dose: 10 ml Dextrose/Sodium Chloride () 1,000 mls @ 100 mls/hr IV .Q10H [facility] Insulin Aspart (Novolog Flexpen (Bkc)) 0 units SC ACHS [facility] PRN Reason: Protocol Levothyroxine Sodium (Synthroid) 137 mcg PO DAILY@0600 [facility] Last Admin: 10/09/17 10:52 Dose: 137 mcg Magnesium Hydroxide (Milk Of Magnesia) 30 ml PO DAILY PRN PRN PRN Reason: Constipation Melatonin (Melatonin) 3 mg PO QHS [facility] Last Admin: 10/08/17 22:40 Dose: 3 mg Nystatin (Mycostatin Powder) 1 applic TOPICAL TID [facility] PRN Reason: Protocol Last Admin: 10/09/17 13:38 Dose: 1 applicatio Ondansetron HCl (Zofran) 4 mg IV Q8H PRN PRN PRN Reason: Nausea Pantoprazole Sodium (Protonix) 40 mg PO BID [facility] Last Admin: 10/09/17 10:55 Dose: 40 mg Polyethylene Glycol (Miralax) 17 gm PO DAILY [facility] Last Admin: 10/09/17 10:50 Dose: Not Given Prednisone (Prednisone) 40 mg PO DAILY@0800 [facility] Last Admin: 10/09/17 10:50 Dose: 40 mg Risperidone (Risperdal) 2 mg PO BID [facility] Last Admin: 10/09/17 10:50 Dose: 2 mg Sodium Chloride () 5 - 30 ml IV UD PRN PRN Reason: SALINE FLUSH Last Admin: 10/09/17 10:51 Dose: 10 ml Sodium Chloride () 10 ml IV UD PRN PRN Reason: PICC FLUSH Sodium Chloride ([place] Nasal [place]) 2 spray NASAL TID PRN PRN PRN Reason: NASAL DRYNESS Last Admin: 10/07/17 05:19 Dose: 2 spray Venlafaxine HCl (Effexor) 75 mg PO BID [facility] Last Admin: 10/09/17 10:50 Dose: 75 mg Assessment/Plan Active and Suspected Problems Metabolic encephalopathy (Acute) Hypothermia (Acute) Severe sepsis (Acute) Gram-negative pneumonia (Acute) Acute respiratory failure with hypercapnia (Acute) Hypoglycemia (Acute) Anemia (Acute) This is a 62 year old female who was admitted on 10/02/17 after being found unresponsive at her [facility]. She was intubated, managed in ICU as acute respiratory failure and severe sepsis secondary to left lobe pneumonia and hypoglycemia. 1. Severe sepsis secondary to HCAP, improved from sepsis standpoint, stable vitals, improved, on po cefdinir. 2. Iron deficiency anemia, FOBT positive, on PPI, no hemodynamic instability, no chandni seen. Patient had EGD and colonoscopy on October 09, 2017 and showed gastritis otherwise normal upper endoscopy. Colonoscopypoor prep but normal visualized colon. 3. Acute Respiratory failure with hypercapnia/hypoxia, s/p extubation, improved , on 2L oxygen, will continue to wean off oxygen. Patient still has diminished breath sound on lower lungs most probably due to obesity hypoventilation syndrome. 4. HCAP, sputum cultures growing morganella morganii, proteus sp, urine legionella and streptococcal antigen are negative, blood cultures are negative. Day 6 of antibiotics. Plan for 10 days total antibiotics. 5. Metabolic encephalopathy secondary to hypoglycemia, appears resolved, unclear of patient's baseline, flat affect for me over the last 2 days. Patient also has history of MRDD. At this point of time, it is unclear of baseline. 6.Type 2DM, HbA1c is 8.6, admitted with hypoglycemia, BS are better controlled today. His schedule short acting and Levemir insulin discontinued. On sliding scale insulin. Continue Accu-Cheks. 7. History of right leg DVT, on Eliquis. 8. Hyperkalemia, resolved, s/p kayexalate, K is 4.7 9. Hyponatremia, acute, improved, off HCTZ for now, will continue to monitor 10. Generalised edema likely related to hypoalbuminemia related recent illness, will check serum albumin, continue on lasix IV for now. Last 2D-ECHO showed normal EF 60% 11. Deconditioning/weakness, physical and occupational therapy consulted, will need to go for skilled rehab. Microbiology Past 72 Hours 10/04/17 00:55 Blood Culture (Wb) - Anticubital Right Blood Culture - Final No growth in 5 days. 10/04/17 01:00 Blood Culture (Wb) - Left Hand Blood Culture - Final No growth in 5 days. 10/04/17 20:45 Sputum, Induced/Lukens Gram Stain - Final 10/04/17 20:45 Sputum, Induced/Lukens Respiratory Culture - Final Morganella morganii sp morgani Proteus mirabilis 10/06/17 10:35 Stool Stool Occult Blood (CARLITA) - Final Occult Blood Positive Laboratory Results 10/08/17 14:24: POC Glucose 109 10/08/17 16:58: POC Glucose 99 10/08/17 22:45: POC Glucose 61 L 10/08/17 23:30: POC Glucose 78 10/09/17 00:29: POC Glucose 75 10/09/17 05:32: WBC 7.8, RBC 3.07 L, Hgb 8.2 L, Hct 27.0 L, MCV 87.9, MCH 26.7 L , MCHC 30.4 L, RDW 18.0 H, RDW Differential 55.0 H, Plt Count 233, MPV 10.0, Immature Gran % (Auto) 0.100, Neut % (Auto) 57.6, Lymph % (Auto) 32.1, [place] % ( Auto) 8.4, Eos % (Auto) 1.8, Baso % (Auto) 0.0, Absolute Neuts (auto) 4.5, Absolute Lymphs (auto) 2.50, Total Counted Not Reportable 10/09/17 05:32: Sodium 133 L, Potassium 4.7, Chloride 93 L, Carbon Dioxide 36.0 H, Anion Gap 4 L, BUN 25 H, Creatinine 0.46 L, Estim Creat Clear Calc 103.55, Est GFR (MDRD) Af Amer 176, Est GFR (MDRD) Non-Af 146, BUN/Creatinine Ratio 54.3 H, Glucose 51 L, Calcium 8.8 10/09/17 05:32: PT 14.8, INR 1.2 10/09/17 06:26: POC Glucose 51 L 10/09/17 06:49: POC Glucose 95 10/09/17 10:41: POC Glucose 64 L 10/09/17 11:05: POC Glucose 72 10/09/17 13:37: POC Glucose 126 H Clinical Impression(s) from Imaging Studies Brain CT 10/04/17 00:45 IMPRESSION: Chronic involutional changes of the brain. No acute intracranial process. Chest X-Ray 10/08/17 09:27 IMPRESSION: Removal of endotracheal and NG tube. Stable right subclavian catheter. Findings compatible with interstitial edema/congestive failure with effusions. Code Visit Inpatient E&M: 82016 [facility] Hosp L3
[2017-10-09 16:31] LABS: Bedside Glucose 157 mg/dL (70-110)
[2017-10-09] MEDS: MELATONIN 3 MG TABLET PO (21:35)
[2017-10-09] MEDS: Atorvastatin Calcium 40 MG Tablet PO (21:35)
[2017-10-09 22:05] LABS: Bedside Glucose 232 mg/dL (70-110)
[2017-10-09] MEDS: guaiFENesin 10 ML UDC (200MG/10ML) PO (23:45)
[2017-10-10] VITALS (13 sets, daily range): BP systolic 140–153; BP diastolic 55–66; PULSE 70–88; RESP 16–24; TEMP 36.5–37; O2SAT 92–97
[2017-10-10 06:10] LABS: Absolute Neutrophil Count 4.5 X10^3/uL (2.0-7.7); Eosinophils% 1.4 % (0-5); Hematocrit 28.3 % (37-47); Hemoglobin 7.9 g/dl (12.0-15.0); Lymphocyte % 27.7 % (19-41); Mean Corp Hgb Conc 27.9 g/gl (32-36); Mean Corpuscular Hgb 24.1 pg (27.0-32.0); Mean Corpuscular Volume 86.3 fL (81-99); Monocyte# 0.55 X10^3/uL; Monocyte% 7.6 % (0-10); Neutrophil # 4.54 X10^3/uL (2.7-7.7); Platelet Count 235 K/mm3 (150-450); RBC Distribution Width CV 17.6 % (11.6-14.6); RBC Distribution Width SD 53.6 fl (35.1-43.9); Red Blood Count 3.28 M/mm3 (4.2-5.4); White Blood Count 7.2 K/mm3 (4.4-11.0)
[2017-10-10 06:11] LABS: POSITIVE COUNT NO; POSITIVE DIFFERENTIAL NO; POSITIVE MORPHOLOGY NO
[2017-10-10] MEDS: Levothyroxine 137 MCG Tablet PO (06:27)
[2017-10-10] MEDS: Menthol/Lanolin/Calamine/Znox 113 GM Tube 1 APPLIC TOPICAL ×3 (06:27→23:30)
[2017-10-10] MEDS: Nystatin Powder 15gm Bottle 1 APPLIC TOPICAL ×3 (06:27→23:35)
[2017-10-10 06:39] LABS: Anion Gap 2 (5-15); BUN 18 mg/dL (7-18); BUN/Creat Ratio 39.3 RATIO (10-20); Calcium,Total 8.6 mg/dL (8.5-10.1); Chloride 88 mmol/L (98-107); Creatinine, Serum 0.46 mg/dL (0.55-1.02); EST Glomerular Filtration Rate 147 mL/min (>60); Est Glom Filt Rate - Afr Amer 177 mL/min (>60); Estimated Creatinine Clearance 103.55 ml/min; Glucose 190 mg/dL (74-106); Potassium 4.8 mmol/L (3.5-5.1); Sodium Level 132 mmol/L (136-145)
[2017-10-10 06:41] LABS: Bedside Glucose 205 mg/dL (70-110)
[2017-10-10] MEDS: Ipratropium/Albuterol Sulfate 3 ML AMPUL.NEB INHALATION ×3 (07:37→19:45)
[2017-10-10] MEDS: Pantoprazole Sodium 40 MG Tablet PO ×2 (09:43→23:32)
[2017-10-10] MEDS: APIXABAN 5 MG TABLET PO (09:43)
[2017-10-10] MEDS: Cefdinir 300 MG Capsule PO ×2 (09:43→23:32)
[2017-10-10] MEDS: Carvedilol 25 MG Tablet PO ×2 (09:44→23:33)
[2017-10-10] MEDS: RisperiDONE 2 MG Tablet PO ×2 (09:44→23:32)
[2017-10-10] MEDS: Polyethylene Glycol 3350 17 GM PACKET PO (09:44)
[2017-10-10] MEDS: Venlafaxine HCl 75 MG Tablet PO ×2 (09:44→23:33)
[2017-10-10] MEDS: cloNIDine HCl 0.2 MG Tablet PO ×2 (09:44→23:32)
--- NOTE | 2017-10-10 11:41 | PCM.PN.HOSP ---
Patient Problems: Active and Suspected Problems Metabolic encephalopathy (Acute) Hypothermia (Acute) Severe sepsis (Acute) Gram-negative pneumonia (Acute) Acute respiratory failure with hypercapnia (Acute) Hypoglycemia (Acute) Anemia (Acute) Subjective: Patient hemoglobin is still low even after giving 200 mg of IV Venofer. Globin ranges from 7-8 g percent. Anemia workup ordered. Patient is more awake and alert today. Vitals/I&O's: Vital Signs Temp Pulse Resp BP Pulse Ox 97.9 F 72 16 153/62 H 95 10/10/17 09:34 10/10/17 09:34 10/10/17 09:34 10/10/17 09:34 10/10/17 09:34 Oxygen Flow Rate 2 Oxygen Delivery Method Nasal Cannula Weight: 253 lb 15.56 oz Body Mass Index (BMI) 43.1 Intake and Output for Last 24 Hours 10/08/17 10/09/17 10/10/17 23:59 23:59 23:59 Intake Total 1470 / 1470 4270 / 4270 670 / 670 Balance 1470 / 1470 4270 / 4270 670 / 670 General: Alert, Oriented x3, Cooperative HEENT: Atraumatic, PERRLA, EOMI, Normocephalic Neck: Supple, No JVD, Negative Carotid Bruits Lungs: Clear to auscultation, No rhonchi, No wheeze, No rales, Diminished Cardiovascular: Regular rate, Regular Rhythm, Normal S1, Normal S2, No murmurs Abdomen: Bowel Sounds Present, Soft, Non Tender, Non-Distended Extremities: Capillary Refill Less than 3 Seconds, Edema Skin: No rashes, No breakdown Musculoskeletal: No Tenderness to Palpation of Joints or Extremities Neurological: Cranial nerves II-XII grossly intact Psych/Mental Status: Normal Affect, Appropriate Microbiology Past 72 Hours 10/04/17 20:45 Sputum, Induced/Lukens Gram Stain - Final 10/04/17 20:45 Sputum, Induced/Lukens Respiratory Culture - Final Morganella morganii sp morgani Proteus mirabilis Laboratory Results 10/09/17 13:37: POC Glucose 126 H 10/09/17 16:23: POC Glucose 157 H 10/09/17 21:22: POC Glucose 232 H 10/10/17 05:47: WBC 7.2, RBC 3.28 L, Hgb 7.9 L, Hct 28.3 L, MCV 86.3, MCH 24.1 L, MCHC 27.9 L, RDW 17.6 H, RDW Differential 53.6 H, Plt Count 235, MPV 10.0, Immature Gran % (Auto) 0.300, Neut % (Auto) 63.0, Lymph % (Auto) 27.7, [place] % (Auto) 7.6, Eos % (Auto) 1.4, Baso % (Auto) 0.0, Absolute Neuts (auto) 4.5, Absolute Lymphs (auto) 2.00, Total Counted Not Reportable 10/10/17 05:47: Sodium 132 L, Potassium 4.8, Chloride 88 L, Carbon Dioxide 42.0 H, Anion Gap 2 L, BUN 18, Creatinine 0.46 L, Estim Creat Clear Calc 103.55, Est GFR (MDRD) Af Amer 177, Est GFR (MDRD) Non-Af 147, BUN/Creatinine Ratio 39.3 H, Glucose 190 H, Calcium 8.6 10/10/17 06:25: POC Glucose 205 H Current Medications Acetaminophen (Tylenol) 650 mg PO Q4H PRN PRN PRN Reason: TEMP > 100.5 F Last Admin: 10/05/17 21:29 Dose: 650 mg Albuterol Sulfate (Ventolin Aerosols) 2.5 mg INHALATION Q2H PRN PRN PRN Reason: SHORTNESS OF BREATH Last Admin: 10/07/17 17:20 Dose: 2.5 mg Albuterol/Ipratropium (Duoneb) 3 ml INHALATION Q6HWA.RT [facility] Last Admin: 10/10/17 07:37 Dose: 3 ml Apixaban (Eliquis) 5 mg PO BID [facility] Last Admin: 10/10/17 09:43 Dose: 5 mg Artificial Tears (Tears Naturale, Artificial Tears) 1 drop OPHTHALMIC TID PRN PRN PRN Reason: Dry Eye Last Admin: 10/09/17 10:45 Dose: 1 drop Atorvastatin Calcium (Lipitor) 40 mg PO QHS [facility] Last Admin: 10/09/17 21:35 Dose: 40 mg Calamine/Phenol (Calmoseptine Ointment) 1 applic TOPICAL TID [facility] PRN Reason: Protocol Last Admin: 10/10/17 06:27 Dose: 1 applicatio Carvedilol (Coreg) 25 mg PO BID [facility] Last Admin: 10/10/17 09:44 Dose: 25 mg Cefdinir (Omnicef [Equiv]) 300 mg PO Q12 [facility] Stop: 10/15/17 22:01 Last Admin: 10/10/17 09:43 Dose: 300 mg Clonidine (Catapres) 0.2 mg PO BID [facility] Last Admin: 10/10/17 09:44 Dose: 0.2 mg Dextrose (D50w Syringe) 0 gm IV X1 PRN; Protocol PRN Reason: Hypoglycemia Last Admin: 10/09/17 06:31 Dose: 12.5 gm Ferrous Sulfate (Ferrous Sulfate) 325 mg PO BIDCM@1200,1700 [facility] Last Admin: 10/09/17 16:25 Dose: 325 mg Glucagon () 1 mg IM .X1 PRN PRN Reason: Hypoglycemia Guaifenesin (Robitussin) 10 ml PO Q6H PRN PRN PRN Reason: COUGH Last Admin: 10/09/17 23:45 Dose: 10 ml Insulin Aspart (Novolog Flexpen (Bkc)) 0 units SC ACHS [facility] PRN Reason: Protocol Last Admin: 10/10/17 06:26 Dose: 2 unit Levothyroxine Sodium (Synthroid) 137 mcg PO DAILY@0600 [facility] Last Admin: 10/10/17 06:27 Dose: 137 mcg Magnesium Hydroxide (Milk Of Magnesia) 30 ml PO DAILY PRN PRN PRN Reason: Constipation Melatonin (Melatonin) 3 mg PO QHS [facility] Last Admin: 10/09/17 21:35 Dose: 3 mg Nystatin (Mycostatin Powder) 1 applic TOPICAL TID [facility] PRN Reason: Protocol Last Admin: 10/10/17 06:27 Dose: 1 applicatio Ondansetron HCl (Zofran) 4 mg IV Q8H PRN PRN PRN Reason: Nausea Pantoprazole Sodium (Protonix) 40 mg PO BID [facility] Last Admin: 10/10/17 09:43 Dose: 40 mg Polyethylene Glycol (Miralax) 17 gm PO DAILY [facility] Last Admin: 10/10/17 09:44 Dose: 17 gm Prednisone (Prednisone) 40 mg PO DAILY@0800 [facility] Last Admin: 10/10/17 09:43 Dose: 40 mg Risperidone (Risperdal) 2 mg PO BID [facility] Last Admin: 02/13/18 09:44 Dose: 2 mg Sodium Chloride () 5 - 30 ml IV UD PRN PRN Reason: SALINE FLUSH Last Admin: 10/09/17 21:36 Dose: 30 ml Sodium Chloride () 10 ml IV UD PRN PRN Reason: PICC FLUSH Sodium Chloride ([place] Nasal [place]) 2 spray NASAL TID PRN PRN PRN Reason: NASAL DRYNESS Last Admin: 10/07/17 05:19 Dose: 2 spray Venlafaxine HCl (Effexor) 75 mg PO BID [facility] Last Admin: 10/10/17 09:44 Dose: 75 mg Assessment/Plan Active and Suspected Problems Metabolic encephalopathy (Acute) Hypothermia (Acute) Severe sepsis (Acute) Gram-negative pneumonia (Acute) Acute respiratory failure with hypercapnia (Acute) Hypoglycemia (Acute) Anemia (Acute) This is a 62 year old female who was admitted on 10/02/17 after being found unresponsive at her residential. She was intubated, managed in ICU as acute respiratory failure and severe sepsis secondary to left lobe pneumonia and hypoglycemia. 1. Severe sepsis secondary to HCAP, improved from sepsis standpoint, stable vitals, improved, on po cefdinir. 2. Acute on chronic anemia most probably due to anemia of chronic disease and possible iron deficiency anemia and, anticoagulant agent Eliquis: FOBT positive, on PPI, no hemodynamic instability, no chandni seen. Patient had EGD and colonoscopy on October 09, 2017 and showed gastritis otherwise normal upper endoscopy. Colonoscopypoor prep but normal visualized colon. Patient had iron profile and ferritin suggestive of anemia of chronic disease but the blood was drawn after IV Venofer was given. Anyways, patient does not require any further iron supplement. Reticulocyte count is high. Haptoglobin is pending but LDH is normal, therefore probably hemolytic in nature. If hemoglobin stays stable, can discharge to residential tomorrow. 3. Acute Respiratory failure with hypercapnia/hypoxia, s/p extubation, improved, on 2L oxygen, will continue to wean off oxygen. Patient still has diminished breath sound on lower lungs most probably due to obesity hypoventilation syndrome. 4. HCAP, sputum cultures growing morganella morganii, proteus sp, urine legionella and streptococcal antigen are negative, blood cultures are negative. Day 7 of antibiotics. Plan for 10 days total antibiotics. 5. Metabolic encephalopathy secondary to hypoglycemia, appears resolved, unclear of patient's baseline, flat affect for me over the last 2 days. Patient also has history of MRDD. At this point of time, it is unclear of baseline. 6.Type 2DM, HbA1c is 8.6, admitted with hypoglycemia, BS are better controlled today. His schedule short acting and Levemir insulin discontinued. On sliding scale insulin. Continue Accu-Cheks. 7. History of right leg DVT as per venous Doppler of August 2015: Venous Doppler of August 2015 reviewed. Reported as acute DVT of right gastrocnemius vein. Small segment of superficial thrombophlebitis of right great saphenous vein at the knee. For now, discontinue Eliquis as she had already had 2 years. She cannot tolerate anticoagulant in view of severe anemia. 8. Hyperkalemia, resolved, s/p kayexalate, K is 4.7 9. Hyponatremia, acute, improved, off HCTZ for now, will continue to monitor 10. Generalised edema likely related to hypoalbuminemia related recent illness, will check serum albumin, continue on lasix IV for now. Last 2D-ECHO showed normal EF 60% 11. Deconditioning/weakness, physical and occupational therapy consulted, will need to go for skilled rehab. Microbiology Past 72 Hours 10/04/17 00:55 Blood Culture (Wb) - Anticubital Right Blood Culture - Final No growth in 5 days. 10/04/17 01:00 Blood Culture (Wb) - Left Hand Blood Culture - Final No growth in 5 days. 10/04/17 20:45 Sputum, Induced/Lukens Gram Stain - Final 10/04/17 20:45 Sputum, Induced/Lukens Respiratory Culture - Final Morganella morganii sp morgani Proteus mirabilis 10/06/17 10:35 Stool Stool Occult Blood (CARLITA) - Final Occult Blood Positive Laboratory Results 10/08/17 14:24: POC Glucose 109 10/08/17 16:58: POC Glucose 99 10/08/17 22:45: POC Glucose 61 L 10/08/17 23:30: POC Glucose 78 10/09/17 00:29: POC Glucose 75 10/09/17 05:32: WBC 7.8, RBC 3.07 L, Hgb 8.2 L, Hct 27.0 L, MCV 87.9, MCH 26.7 L, MCHC 30.4 L, RDW 18.0 H, RDW Differential 55.0 H, Plt Count 233, MPV 10.0, Immature Gran % (Auto) 0.100, Neut % (Auto) 57.6, Lymph % (Auto) 32.1, [place] % (Auto) 8.4, Eos % (Auto) 1.8, Baso % (Auto) 0.0, Absolute Neuts (auto) 4.5, Absolute Lymphs (auto) 2.50, Total Counted Not Reportable 10/09/17 05:32: Sodium 133 L, Potassium 4.7, Chloride 93 L, Carbon Dioxide 36.0 H, Anion Gap 4 L, BUN 25 H, Creatinine 0.46 L, Estim Creat Clear Calc 103.55, Est GFR (MDRD) Af Amer 176, Est GFR (MDRD) Non-Af 146, BUN/Creatinine Ratio 54.3 H, Glucose 51 L, Calcium 8.8 10/09/17 05:32: PT 14.8, INR 1.2 10/09/17 06:26: POC Glucose 51 L 10/09/17 06:49: POC Glucose 95 10/09/17 10:41: POC Glucose 64 L 10/09/17 11:05: POC Glucose 72 10/09/17 13:37: POC Glucose 126 H Clinical Impression(s) from Imaging Studies Brain CT 10/04/17 00:45 IMPRESSION: Chronic involutional changes of the brain. No acute intracranial process. Chest X-Ray 10/08/17 09:27 IMPRESSION: Removal of endotracheal and NG tube. Stable right subclavian catheter. Findings compatible with interstitial edema/congestive failure with effusions. Code Visit Inpatient E&M: [id number] [facility] L[facility]
[2017-10-10] MEDS: 0.9% NaCl Peripheral Flush Adult/Peds IV (12:22)
[2017-10-10 13:01] LABS: Immature Platelet Fraction 1.6 % (1.0-7.9); RET-HE 20.6 pg (30-35)
[2017-10-10] MEDS: Ferrous Sulfate 325 MG Tablet PO ×2 (13:09→17:18)
[2017-10-10 13:21] LABS: Bedside Glucose 339 mg/dL (70-110)
[2017-10-10 13:41] LABS: Ferritin 86 ng/mL (8-252); Iron 467 ug/dL (50-170); Iron Binding Capacity,Total 418 ug/dL (250-450); LDH 236 U/L (84-246); PERCENT IRON SATURATION 111.7 % (15.0-55.0)
[2017-10-10 17:06] LABS: Bedside Glucose 382 mg/dL (70-110)
[2017-10-10 21:11] LABS: Hematocrit 27.8 % (37-47); Hemoglobin 7.8 g/dl (12.0-15.0)
[2017-10-10] MEDS: MELATONIN 3 MG TABLET PO (23:33)
[2017-10-10] MEDS: Atorvastatin Calcium 40 MG Tablet PO (23:33)
[2017-10-10] MEDS: guaiFENesin 10 ML UDC (200MG/10ML) PO (23:50)
[2017-10-10 23:56] LABS: Bedside Glucose 308 mg/dL (70-110)
[2017-10-11] VITALS (8 sets, daily range): BP systolic 124–135; BP diastolic 40–57; PULSE 68–88; RESP 16–21; TEMP 36.5–36.9; O2SAT 92–98
[2017-10-11 06:34] LABS: Absolute Lymphocyte Count 2.17 X10^3/ul (0.83-4.51); Absolute Neutrophil Count 4.1 X10^3/uL (2.0-7.7); Eosinophil# 0.12 X10^3/uL; Eosinophils% 1.8 % (0-5); Hematocrit 27.5 % (37-47); Hemoglobin 7.8 g/dl (12.0-15.0); Lymphocyte # 2.17 X10^3/ul (4.0); Lymphocyte % 31.7 % (19-41); Mean Corp Hgb Conc 28.4 g/gl (32-36); Mean Corpuscular Hgb 24.5 pg (27.0-32.0); Mean Corpuscular Volume 86.5 fL (81-99); Mean Platelet Vol. 10.1 fl (6.2-12.0); Monocyte# 0.49 X10^3/uL; Monocyte% 7.2 % (0-10); Neutrophil # 4.05 X10^3/uL (2.7-7.7); Platelet Count 230 K/mm3 (150-450); RBC Distribution Width SD 54.5 fl (35.1-43.9); Red Blood Count 3.18 M/mm3 (4.2-5.4); White Blood Count 6.9 K/mm3 (4.4-11.0)
[2017-10-11 06:36] LABS: POSITIVE COUNT NO; POSITIVE DIFFERENTIAL NO; POSITIVE MORPHOLOGY NO
[2017-10-11] MEDS: Menthol/Lanolin/Calamine/Znox 113 GM Tube 1 APPLIC TOPICAL (06:40)
[2017-10-11] MEDS: Nystatin Powder 15gm Bottle 1 APPLIC TOPICAL (06:40)
[2017-10-11] MEDS: Levothyroxine 137 MCG Tablet PO (06:40)
[2017-10-11 06:56] LABS: Bedside Glucose 239 mg/dL (70-110)
[2017-10-11 06:58] LABS: BUN 15 mg/dL (7-18); Creatinine, Serum 0.43 mg/dL (0.55-1.02); EST Glomerular Filtration Rate 159 mL/min (>60); Estimated Creatinine Clearance 110.77 ml/min; Glucose 227 mg/dL (74-106)
[2017-10-11 06:59] LABS: Anion Gap 2 (5-15); BUN/Creat Ratio 35.1 RATIO (10-20); Calcium,Total 8.6 mg/dL (8.5-10.1); Chloride 90 mmol/L (98-107); Est Glom Filt Rate - Afr Amer 192 mL/min (>60); Potassium 4.8 mmol/L (3.5-5.1); Sodium Level 132 mmol/L (136-145)
[2017-10-11] MEDS: Ipratropium/Albuterol Sulfate 3 ML AMPUL.NEB INHALATION ×2 (07:05→12:44)
[2017-10-11] MEDS: Polyethylene Glycol 3350 17 GM PACKET PO (09:20)
[2017-10-11] MEDS: Cefdinir 300 MG Capsule PO (09:20)
[2017-10-11] MEDS: Pantoprazole Sodium 40 MG Tablet PO (09:21)
[2017-10-11] MEDS: Venlafaxine HCl 75 MG Tablet PO (09:21)
[2017-10-11] MEDS: RisperiDONE 2 MG Tablet PO (09:21)
[2017-10-11] MEDS: cloNIDine HCl 0.2 MG Tablet PO (09:21)
[2017-10-11] MEDS: Carvedilol 25 MG Tablet PO (09:22)
--- NOTE | 2017-10-11 09:29 | PCM.TXEXTCAR ---
- Diet 10/09/17 11:07 ADA [Diet: Calorie Controlled] Food consistency:: Mechanical Soft/Ground Is pt able to select menu?: Yes How many daily calories?: 1800 calorie - Routine Orders/Code Status Suppository Type: Dulcolax 10mg Suppository Frequency: Daily PRN Routine Lab Work: CBC - 10/16/17, BMP - 10/16/17 and follow-up with PCP Code Status: DNRCC-A - Therapies Extremity Affected:: Bilateral Lower Physical Therapy: Eval and Treat Occupational Therapy: Eval and Treat Speech Therapy: Eval and Treat - Allergies/Procedures Done in Hospital Allergies/Adverse Reactions: Allergies naproxen Allergy (Verified 10/04/17 00:46) Rash Penicillins Allergy (Verified 10/04/17 00:46) Rash - Type of Care/Length of Stay Estimated LOS: More Than 30 Days Type of Care Needed: Shelter/Assisted Living Rehab Potential: Fair Prognosis: Fair - Additional Orders/Day of Discharge Day of Discharge: 10/11/17 - Dietary and Speech Recommendations Dietitian Recommendations/Changes: Rec conitnue current diet as ordered. - Follow Up Care Primary Care Physician: Xi Headley MD [Primary Care Provider] - Please Follow Up With: Eloy Coelho MD When: For outpatient PFT and sleep study
--- NOTE | 2017-10-11 09:33 | DS.PCM_ITS ---
Discharge Date and Diagnosis Date of Admission: 10/04/17 Date of Discharge: 10/11/17 - Primary Discharge Diagnosis Active and Suspected Problems Metabolic encephalopathy (Acute) Hypothermia (Acute) Severe sepsis (Acute) Gram-negative pneumonia (Acute) Acute respiratory failure with hypercapnia (Acute) Hypoglycemia (Acute) Anemia (Acute) 1. Severe sepsis secondary to HCAP, left lower lobe, lung present on admission 2. Acute on chronic anemia most probably due to anemia of chronic disease and possible upper GI Bleed from anticoagulant agent Eliquis/iron deficiency anemia : FOBT positive 3. Acute Respiratory failure with hypercapnia/hypoxia, s/p extubation 4. Left lower lobe HCAP, due to Morganella morganii, Proteus bacteria. 5. Metabolic encephalopathy secondary to hypoglycemia; improved and resolved . the patient is awake and alert and replies all the questions appropriately. . Hyperkalemia, resolved, s/p kayexalate, K is 4.7, 4.8. . Hyponatremia, acute, improved, . Generalised edema likely related to hypoalbuminemia related recent illness; improved last 2D-ECHO showed normal EF 60% Deconditioning/weakness, physical deconditioning - Secondary Discharge Diagnosis Chronic Problems Mental retardation (Chronic) Paresthesia (Chronic) Hx of shortness of breath (Chronic) Morbid obesity (Chronic) Hypertension (Chronic) Type 2 diabetes mellitus without complications (Chronic) Insomnia (Chronic) Depressive disorder (Chronic) Hospital Course and Treatment Operations: None Summary of Care Provided: [] This is a 62 year old female who was admitted on 10/02/17 after being found unresponsive at her shelter. She was intubated, managed in ICU as acute respiratory failure and severe sepsis secondary to left lobe pneumonia and hypoglycemia. She did not had prolonged hospital stay due to vent management, extubation, EGD and colonoscopy encephalopathy as mentioned detailed below. The patient was seen and examined today General: Alert, Oriented x3, Cooperative HEENT: Atraumatic, PERRLA, EOMI, Normocephalic Neck: Supple, No JVD, Negative Carotid Bruits Lungs: Clear to auscultation, No rhonchi, No wheeze, No rales, air entry improved Cardiovascular: Regular rate, Regular Rhythm, Normal S1, Normal S2, No murmurs Abdomen: Bowel Sounds Present, Soft, Non Tender, Non-Distended Extremities: Capillary Refill Less than 3 Seconds, Edema Skin: No rashes, No breakdown Musculoskeletal: No Tenderness to Palpation of Joints or Extremities Neurological: Cranial nerves II-XII grossly intact Psych/Mental Status: Normal Affect, Appropriate 1. Severe sepsis secondary to HCAP, improved from sepsis standpoint, stable vitals, improved, on po cefdinir. Patient will need 3 more days of Ceftin including today. 2. Acute on chronic anemia most probably due to anemia of chronic disease and possible upper GI Bleed from anticoagulant agent Eliquis/iron deficiency anemia : FOBT positive, on PPI, no hemodynamic instability, no chandni seen. Patient had EGD and colonoscopy on October 09, 2017 and showed gastritis otherwise normal upper endoscopy. Colonoscopy poor prep but normal visualized colon. Patient had iron profile and ferritin suggestive of anemia of chronic disease but the blood was drawn after IV Venofer was given. Anyways, patient does not require any further iron supplement. Reticulocyte count is high. Haptoglobin is pending but LDH is normal, therefore probably hemolytic in nature. Hemoglobin has been stable over past to 3 days between 7- 8 g percent. I hope it increase after the discontinuation of Eliquis. 3. Acute Respiratory failure with hypercapnia/hypoxia, s/p extubation, improved , on 2L oxygen, will continue to wean off oxygen. Patient still has diminished breath sound on lower lungs most probably due to obesity hypoventilation syndrome. 4. HCAP, sputum cultures growing morganella morganii, proteus sp, urine legionella and streptococcal antigen are negative, blood cultures are negative. Day 8 of antibiotics. Plan for 10 days total antibiotics. 5. Metabolic encephalopathy secondary to hypoglycemia, appears resolved, unclear of patient's baseline, flat affect for me over the last 2 days. Patient also has history of MRDD. The patient is awake and alert and replies all the questions appropriately. 6.Type 2DM, HbA1c is 8.6, admitted with hypoglycemia, BS are better controlled today. His schedule short acting and Levemir insulin discontinued. On sliding scale insulin. Continue Accu-Cheks. 7. History of right leg DVT as per venous Doppler of August 2015: Venous Doppler of August 2015 reviewed. Reported as acute DVT of right gastrocnemius vein. Small segment of superficial thrombophlebitis of right great saphenous vein at the knee. For now, discontinue Eliquis as she had already had 2 years. She cannot tolerate anticoagulant in view of severe anemia. 8. Hyperkalemia, resolved, s/p kayexalate, K is 4.7, 4.8. 9. Hyponatremia, acute, improved, off HCTZ for now, will continue to monitor 10. Generalised edema likely related to hypoalbuminemia related recent illness, will check serum albumin, continue on lasix IV for now. Last 2D-ECHO showed normal EF 60% 11. Deconditioning/weakness, physical and occupational therapy consulted, will need to go for skilled rehab. The hospital course, including previous history of DVT, severe anemia, EGD and colonoscopy finding, overall hospital course management and decision of discontinuation of Eliquis was discussed with the patient's brother, Mr. Rosas Fenton, phone [phone] on October 10, 2017. His brother agrees with the decision of discoloration of Eliquis. He wanted further relayed to patient's PCP office, Ms. Dr. Headley. Dr. Xi Headley office was called and talked to the nurse regarding this. This was further conveyed to the patient. The patient is being discharged to SNF. Discharge medication reconciliation done. Discharge instructions completed. More than 40 minutes is spent on the discharge process including meds reconciliation, completion of discharge instruction and discussion with the patient. Home Medications: Medications to take at Discharge Acetaminophen 2 tab PO DINNER 10/04/17 Atorvastatin Calcium 40 mg PO QHS 10/04/17 Fluticasone Propionate [Flovent Diskus] 50 mcg IH DAILY 10/04/17 Guaifenesin 10 ml PO Q6H PRN 10/04/17 Hydrochlorothiazide [Hctz] 25 mg PO DAILY 10/04/17 Insulin Aspart Protam & Aspart [Novolog Mix 70-30 Vial] 26 unit SQ BREAKFAST 03/14 Insulin Aspart Protam & Aspart [Novolog Mix 70-30 Vial] 36 unit SQ DINNER Insulin Aspart [Novolog Flexpen] See Protocol SC DINNER 10/04/17 Levothyroxine [Synthroid] 137 mcg PO DAILY 10/04/17 Loperamide [Imodium] 2 mg PO PRN PRN 10/04/17 Magnesium Oxide 400 mg PO BID 10/04/17 Melatonin 3 mg PO QHS 10/04/17 Omeprazole 20 mg PO DAILY 10/04/17 Polyethylene Glycol 3350 [Miralax] 17 gm PO DAILY 10/04/17 Polyvinyl Alcohol [Artificial Tears] 1 drop OP TID PRN 10/04/17 Risperidone 2 mg PO BID 10/04/17 Sodium Chloride [Saline Mist] 2 spray NASAL TID 10/04/17 Spironolactone 25 mg PO DAILY 10/04/17 Venlafaxine HCl [Effexor] 75 mg PO BID 10/04/17 Carvedilol 25 mg PO BID #0 10/11/17 Cefdinir [Omnicef [equiv]] 300 mg PO Q12 #5 capsule 10/11/17 Clonidine HCl 0.2 mg PO BID #0 10/11/17 Guaifenesin [Robitussin] 10 ml PO Q6H PRN PRN udc 10/11/17 Metformin HCl [Glucophage] 500 mg PO BIDCM #0 10/11/17 Tramadol HCl [Ultram] 50 mg PO DAILY #7 tab 10/11/17 Following Prescrptions Were Given to Patient: Tramadol HCl [Ultram] 50 mg PO DAILY #7 tab Primary Care Physician: Xi Headley MD [Primary Care Provider] - Please Follow Up With: Eloy Coelho MD When: For outpatient PFT and sleep study Meaningful Use Info Meaningful Use Diagnoses (Choose all that apply): None applicable Code Visit Inpatient E&M: [id number] [facility]
--- NOTE | 2017-10-11 09:33 | TREXTCAR_ITS ---
- Diet 10/09/17 11:07 ADA [Diet: Calorie Controlled] Food consistency:: Mechanical Soft/Ground Is pt able to select menu?: Yes How many daily calories?: 1800 calorie - Routine Orders/Code Status Suppository Type: Dulcolax 10mg Suppository Frequency: Daily PRN Routine Lab Work: CBC - 10/16/17, BMP - 10/16/17 and follow-up with PCP Code Status: DNRCC-A - Therapies Extremity Affected:: Bilateral Lower Physical Therapy: Eval and Treat Occupational Therapy: Eval and Treat Speech Therapy: Eval and Treat - Allergies/Procedures Done in Hospital Allergies/Adverse Reactions: Allergies naproxen Allergy (Verified 10/04/17 00:46) Rash Penicillins Allergy (Verified 10/04/17 00:46) Rash - Type of Care/Length of Stay Estimated LOS: More Than 30 Days Type of Care Needed: Residential/Assisted Living Rehab Potential: Fair Prognosis: Fair - Additional Orders/Day of Discharge Day of Discharge: 10/11/17 - Dietary and Speech Recommendations Dietitian Recommendations/Changes: Rec conitnue current diet as ordered. - Follow Up Care Primary Care Physician: Xi Headley MD [Primary Care Provider] - Please Follow Up With: Eloy Coelho MD When: For outpatient PFT and sleep study
--- NOTE | 2017-10-11 10:54 | CASEMGMT ---
Pt is ready for discharge. NICANOR set up a 1pm pickup for pt with [facility]. NICANOR faxed discharge instructions to [facility], schedule II script to Omn. NICANOR let pt, pt's RN, Sapna at [facility] and pt's brother know time of pickup. No further needs are anticipated. CJ Zuniga, [employer] MACHINE OPERATOR
[2017-10-11] MEDS: Ferrous Sulfate 325 MG Tablet PO (11:35)
[2017-10-11 11:45] LABS: Bedside Glucose 299 mg/dL (70-110)
--- NOTE | 2017-10-11 12:28 | NURSING ---
call placed to [facility] at [facility], report given pt due to be picked up at 1pm
[2017-10-12 11:21] LABS: Haptoglobin 169 mg/dL (34-200)
== END 2017-10-11 13:23 | disposition skilled nursing facility (03) | DRG 871 ==
LOC: ED 00:45 → ICU 03:08 → MS3 10-06 15:55
PROVIDERS: Anesthesiology; Internal Medicine; Internal Medicine Critical Care Medicine; Surgery; Emergency Provider Emergency Medicine; Family Provider Internal Medicine; PCP Internal Medicine; Visit Provider Internal Medicine
PROC: 0DJD8ZZ Inspection of Lower Intestinal Tract, Via Natural or Artificial Opening Endoscopic (ICD-10-PCS; CPT 45378; principal; 2017-10-09 08:30)
DX: A41.9 Sepsis, unspecified organism (principal); G93.41 Metabolic encephalopathy; J96.01 Acute respiratory failure with hypoxia; J96.02 Acute respiratory failure with hypercapnia; J15.6 Pneumonia due to other Gram-negative bacteria; N17.9 Acute kidney failure, unspecified; K92.2 Gastrointestinal hemorrhage, unspecified; E87.1 Hypo-osmolality and hyponatremia; E66.2 Morbid (severe) obesity with alveolar hypoventilation; Z68.41 Body mass index [BMI] 40.0-44.9, adult; E11.649 Type 2 diabetes mellitus with hypoglycemia without coma; R65.20 Severe sepsis without septic shock; K29.70 Gastritis, unspecified, without bleeding; Z66 Do not resuscitate; Y95 Nosocomial condition; E87.5 Hyperkalemia; F79 Unspecified intellectual disabilities; I10 Essential (primary) hypertension; F32.9 Major depressive disorder, single episode, unspecified; F51.04 Psychophysiologic insomnia; Z86.718 Personal history of other venous thrombosis and embolism; T45.515A Adverse effect of anticoagulants, initial encounter; D63.8 Anemia in other chronic diseases classified elsewhere; R68.0 Hypothermia, not associated with low environmental temperature; R20.2 Paresthesia of skin; I16.0 Hypertensive urgency
CPT/HCPCS: 31500; 31720; 36415; 36569; 36600; 51702; 70450; 71045; 71046; 74018; 80048; 80053; 82040; 82274; 82728; 82803; 82962; 83010; 83540; 83550; 83605; 83615; 83735; 84100; 84484; 85014; 85018; 85025; 85027; 85045; 85610; 86880; 87040; 87070; 87077; 87086; 87088; 87186; 87205; 87449; 87633; 87641; 87804; 88305; 88342; 93005; 94002; 94003; 94640; 94667; 94668; 95831; 97110; 97161; 97166; 97530; 97535; 97802; 99251; 99285; J1756; J2185; J7030; J7040; J7050; A4216; G0463; J0744; J1940; J7799